=== PATIENT | female | born 1950 | race Caucasian/White ===

== ENCOUNTER 2023-06-19 10:54 | Outpatient (OUT) | payer MEDICARE, OTHER, SELFPAY ==
--- NOTE | 2023-06-19 11:05 | MM_ITS ---
Patient: VIRAL BIRD Exam Date: 06/19/2023 : 1950 Gender:F Ordering : DR Tonya Quiñones M.D. Admission #: [id number] Family : Order #: [id number] CLICK HERE TO VIEW EXAM RADIOLOGY REPORT PROCEDURE: MM TOMOSYNTHESIS SCREENING BI COMPARISON: MG MAMM SCREEN KULDIP W CAD, 08/20/2018. MG MAMM SCREEN KULDIP W CAD, 04/12/2020. INDICATIONS: Screening Calculator Name NCI Breast Cancer Risk Assessment Tool 5 Year Breast Cancer Risk 9.00% Lifetime Breast Cancer Risk 21.70% Personal Breast Cancer No Personal Ovarian Cancer No Treatments None Family Cancers Mother with breast cancer at age 78; Sister with breast cancer at age 55; Sister with thyroid cancer at age 62; Daughter with thyroid cancer at age 30. LOCATION: [facility] BREAST COMPOSITION: Scattered areas fibroglandular density. FINDINGS: DIAGNOSTIC CATEGORY 1--NEGATIVE. NO CHANGE FROM COMPARISON ASSESSMENT. Scattered benign-appearing nodules are present. Scattered benign-appearing calcifications are present. Scattered benign-appearing lymph nodes are present. RIGHT BREAST: No significant suspicious finding. LEFT BREAST: No significant suspicious finding. RECOMMENDATIONS: ROUTINE MAMMOGRAM AND CLINICAL EVALUATION IN 12 MONTHS. PLEASE NOTE: A NORMAL MAMMOGRAM DOES NOT EXCLUDE THE POSSIBILITY OF BREAST CANCER. A CLINICALLY SUSPICIOUS PALPABLE LUMP SHOULD BE BIOPSIED. Dictated by: Octavio Fink MD on 06/20/2023 at 08:43 Approved by: Octavio Fink MD on 06/20/2023 at 08:45
== END 2023-06-19 10:55 | disposition home or self-care (01) ==
LOC: MAMMO 10:59
PROVIDERS: PCP Family Medicine; Visit Provider Family Medicine
DX: Z12.31 Encounter for screening mammogram for malignant neoplasm of breast (principal); Z80.3 Family history of malignant neoplasm of breast; Z80.9 Family history of malignant neoplasm, unspecified
CPT/HCPCS: 77063; 77067

== ENCOUNTER 2023-08-21 13:45 | Outpatient (OUT) | payer MEDICARE, OTHER, SELFPAY ==
--- NOTE | 2023-08-21 14:36 | CA_ITS ---
Patient Name: VIRAL BIRD MR#: [id number] : 1950 Exam Date: 08/21/2023 Ordering Doctor: ARI SHELTON ECHOCARDIOGRAM REPORT PROCEDURE: CA ECHO DOPPLER COMPLETE INDICATIONS: Mitral valve stenosis, aortic valve stenosis, hypertension COMPARISON: None. DESCRIPTION: COMPLETE ECHOCARDIOGRAM Real-time transthoracic echocardiography with 2D, M-mode, spectral and color flow Doppler performed. QUALITY: Technical quality was good. 62 , 195#, BSA 1.89 m2 LEFT VENTRICLE: Normal chamber size. Proximal septal hypertrophy (sigmoid septum). Moderate concentric left ventricular hypertrophy. Normal systolic function. LV EF: Normal left ventricular ejection fraction, (>55%). DIASTOLIC: ATRIAL SEPTUM: Visually appears intact. LEFT ATRIUM: Moderate dilatation. RIGHT ATRIUM: Normal chamber size. RIGHT VENTRICLE: Normal chamber size. Normal right ventricular systolic function. TRICUSPID VALVE: Normal mobility and thickness. No stenosis with trivial regurgitation. No evidence of pulmonary hypertension. RVSP 30 mmHg MITRAL VALVE: Mildly thickened with normal mobility. Mild mitral valve stenosis. Mean gradient 3 mmHg at a heart rate of 73 bpm. Calculated mitral valve area by pressure half-time 2.5 cm?. Moderate mitral annular calcification. Trivial mitral regurgitation. AORTIC VALVE: Normal trileaflet appearance. Moderately calcified aortic valve. Moderately diminished mobility. Doppler velocity suggest moderate aortic valve stenosis. DVI 0.38, Mean 19.29 mmHg, BRANDON 1.4 cm?. Trivial aortic regurgitation. AORTIC ROOT: Normal diameter and appearance. PULMONIC VALVE: Normal thickness and mobility. No stenosis. Trivial regurgitation. PERICARDIUM: Trivial pericardial effusion. IVC: Collapses with inspirations. IVC is normal in size. PLEURA: CONCLUSION: 1. Moderate concentric left ventricular hypertrophy with normal systolic function. Estimated LVEF is 60 to 65%. 2. Normal right ventricular size and systolic function. 3. Moderate aortic valve stenosis. 4. Mild mitral valve stenosis. 5. Normal right-sided pressures. Adult Echocardiography Procedure Report Left Ventricle LVEDD (3.7 - 5.6 cm): 3.84 cm LVESD (2.2 - 4.0 cm): 2.43 cm LVIVS thickness (0.6 - 1.2 cm): 1.61 cm LVPW thickness (0.5 - 1.0 cm): 1.19 cm LVOT Max Gradient: 6.00 mm[Hg] LVOT Area (cm2): 1.22 m/s Peak Velocity (LVOT): 1.22 m/s Mean Velocity (LVOT): 0.81 m/s LVOT Diameter 2.15 cm Left Atrium LA Volume Index (2D A2C): 37.60 ml/m2 Left Atrium Systolic Dimension: 4.60 cm Mitral Valve MV E to A Ratio: 0.66, 0.64 Right Ventricle Aorta AO Root Diam: 2.69 cm Ascending Ao Diam: 2.63 cm Aortic Valve AoV Area (Peak Matt): 1.4 cm2 AoV Area (VTI): Peak Velocity(Antegrade Flow): 3.1 m/s Peak Gradient(Antegrade Flow): 28.76 mm[Hg], 29.75 mm[Hg] Mean Velocity(Antegrade Flow): 1.78 m/s, 1.76 m/s Mean Gradient(Antegrade Flow): 19.29 mm[Hg] Velocity Time Integral: 54.63 cm, 55.56 cm Tricuspid Valve Peak Velocity (Regurgitant Flow): 2.60 m/s Pulmonic Valve Peak Gradient: 6.25 mm[Hg], 5.30 mm[Hg] Right Atrium Right Atrium Systolic Pressure: 32.32 ml, 32.32 ml Dictated by: Tito Garcia M.D. on 08/21/2023 at 18:00 Approved by: Tito Garcia M.D. on 08/21/2023 at 18:04
== END 2023-08-21 13:46 | disposition home or self-care (01) ==
LOC: CARD 13:45
PROVIDERS: PCP Family Medicine; Visit Provider Nurse Practitioner
DX: I08.0 Rheumatic disorders of both mitral and aortic valves (principal)
CPT/HCPCS: 93306

== ENCOUNTER 2024-06-23 10:00 | Outpatient (OUT) | payer MEDICARE, OTHER, SELFPAY ==
--- OUTSIDE RECORDS SUMMARY | 2024-06-23 10:21 | XMS_ITS | CCD ---
Author Organization [facility] Care Team Providers Care Manager [employer] Name Role Phone PHYSICIAN, DEFAULT Unavailable Unavailable PHYSICIAN, DEFAULT Unavailable Unavailable SELF, REFERRED Unavailable Unavailable PHYSICIAN, DEFAULT Unavailable Unavailable PHYSICIAN, DEFAULT Unavailable Unavailable SELF, REFERRED Unavailable Unavailable ARI SHELTON Admitting Unavailable ARI SHELTON Consulting Unavailable ARI SHELTON Attending Unavailable KENNETH, DR TONYA Webb Primary Care Unavailable QUIÑONES, DR TONYA Webb Primary Care Unavailable QUIÑONES, DR TONYA Webb Consulting Unavailable QUIÑONES, DR TONYA Webb Attending Unavailable QUIÑONES, DR TONYA Webb Admitting Unavailable MOUKARBEL, DR ALEJANDRO Attending Unavailable MOUKARBEL, DR ALEJANDRO Admitting Unavailable MOUKARBEL, DR ALEJANDRO Consulting Unavailable QUIÑONES, DR TONYA Webb Primary Care Unavailable Tonya Quiñones Unavailable FLAVIA GARCIA Attending Unavailable MOUKARBEL, FLAVIA Attending Unavailable MOUKAFLAVIA GORDILLO Attending Unavailable Medications Current Medications Medication Drug Class(es) Dates Sig (Normalized) Sig (Original) amLODIPine 5 mg oral tablet (1 source) Dihydropyridine Calcium Channel Kim Start: 12-31-2021 take 5 mg by mouth once daily amLODIPine Besylate 5 MG amLODIPine Besylate( 5MG Oral daily ) Active -Hx Entry Oral daily for 0 Dec, Active furosemide 40 mg oral tablet (1 source) Loop Diuretic Start: 12-31-2021 take 1 tablet by mouth every twenty-four hours Furosemide 40 MG 1 tablet Orally Once a day for 0 days Dec, Active levothyroxine sodium 0.075 mg oral tablet (1 source) l-Thyroxine take 1 tablet by mouth once daily Levothyroxine Sodium 75 MCG TAKE 1 TABLET BY MOUTH EVERY DAY for 90 days Active lutein 20 mg oral capsule (1 source) Start: 12-31-2021 take 1 capsule by mouth every twenty-four hours Lutein 20 MG 1 capsule with a meal Orally Once a day for 0 days Dec, Active 24 hr metoprolol succinate 25 mg extended release oral tablet (1 source) beta-Adrenergic Kim Start: 12-31-2021 take 25 mg by mouth once daily Metoprolol Succinate ER 25 MG Metoprolol Succinate ER( 25MG Oral daily ) Active -Hx Entry Oral daily for 0 Dec, Active microencapsulated potassium chloride 20 meq extended release oral tablet (1 source) Start: 12-31-2021 take 1 tablet by mouth every twenty-four hours Klor-Con M20 20 MEQ 1 tablet with food Orally Once a day for 0 days Dec, Active rosuvastatin calcium 10 mg oral tablet (1 source) HMG-CoA Reductase Inhibitor Start: 12-31-2021 take 1 tablet by mouth every twenty-four hours Rosuvastatin Calcium 10 MG 1 tablet Orally Once a day for 0 days Dec, Active Problems Active Problems Problem Classification Problem Date Documented Da te Episodic/Chronic Cardiac dysrhythmias (2 sources) Paroxysmal atrial fibrillation; Translations: [Paroxysmal atrial fibrillation] Onset: 10-17-2023 Chronic Disorders of lipid metabolism (3 sources) Other hyperlipidemia; Translations: [Mixed hyperlipidemia] Onset: 08-29-2022 Chronic Essential hypertension (6 sources) Essential (primary) hypertension; Translations: [ESSENTIAL PRIMARY HYPERTENSION] Onset: 08-31-2022 Chronic Heart valve disorders (8 sources) Nonrheumatic aortic (valve) stenosis; Translations: [Nonrheumatic mitral (valve) stenosis] Onset: 08-28-2022 Chronic Osteoarthritis (1 source) Osteoarthritis; Translations: [Unspecified osteoarthritis, unspecified site] Chronic Other screening for suspected conditions (not mental disorders or infectious disease) (2 sources) Mammography abnormal; Translations: [Other abnormal and inconclusive findings on diagnostic imaging of breast] Episodic Thyroid disorders (7 sources) Hypothyroidism, unspecified; Translations: [Acquired hypothyroidism] Onset: 02-01-2022 Chronic Past or Other Problems Problem Classification Problem Date Documented Da te Episodic/Chronic Cardiac dysrhythmias (2 sources) Palpitations; Translations: [Palpitations] Onset: 08-26-2023 Episodic Results Test Name Value Interpretation Reference Range Facility Office Visiton 05-07-2024 Follow-up visit [id number] Viral Lopez 1950 F Date Provider Department Center 05/07/2024 FLAVIA GAMBOA BH [facility] No family history on file Level of Service:99049 MT OFFICE/OUTPATIENT ESTABLISHED MOD MDM 30 MIN [facility] Office Visiton 10-17-2023 Follow-up visit [id number] Viral Lopez 1950 F Date Provider Department Center 10/17/2023 FLAVIA GAMBOA LILIA[facility] No family history on file Level of Service:92884 MT OFFICE/OUTPATIENT ESTABLISHED MOD MDM 30 MIN [facility] 36on 08-27-[address] Garcia after reviewing patient's serious report on event monitor (scanned into social media job titles) she has atrial fibrillation. Please have her start Eliquis 5 mg twice daily. Please have her come in for an ECG. She can stop aspirin after starting Eliquis. Follow-up in 1 to 2 months. Please have her increase metoprolol to 50 mg daily and stop amlodipine. I spoke with patient and made her aware. She will stop in tomorrow for ECG and Eliquis samples. Normal [facility] Office Visiton 08-26-2023 Follow-up visit [id number] Hussein Lopezyasir Helms 1950 F Date Provider Department Center 08/26/2023 FLAVIA GAMBOA ARUN [facility] No family history on file Level of Service:30580 MT OFFICE/OUTPATIENT ESTABLISHED MOD MDM 30-39 MIN [facility] CBC AUTO DIFFon 10-29-2022 BASO # 0.1 103/ul Normal 0.0-0.1 [facility] Comment on above: Performed By: #### C BC #### [facility] [address] [address] [address] Alexa Burgos Basophils/100 WBC (Bld) 0.6 % Normal 0.2-2.0 [facility] Comment on above: Performed By: #### C BC #### [facility] [address] [address] [address] Alexa Burgos EO # 0.2 103/ul Normal 0.0-0.7 [facility] Comment on above: Performed By: #### C BC #### [facility] [address] [place] [address] Dr. Alexa Burgos Eosinophils/100 WBC (Bld) 2.1 % Normal 0.9-7.0 [facility] Comment on above: Performed By: #### C BC #### [facility] [address] [place] [address] Dr. Alexa Burgos Erythrocyte distribution width (RBC) [Ratio] 12.5 % Normal 11.0-15.0 [facility] Comment on above: Performed By: #### C BC #### [facility] [address] [place] [address] Dr. Alexa Burgos Hematocrit (Bld) [Volume fraction] 43.6 % Normal 36.0-48.0 [facility] Comment on above: Performed By: #### C BC #### [facility] [address] [place] [address] Dr. Alexa Burgos Hemoglobin (Bld) [Mass/Vol] 14.9 g/dL Normal 12.0-16.0 [facility] Comment on above: Performed By: #### C BC #### [facility] [address] [place] [address] Dr. Alexa Burgos IG # 0.02 10e3/ul Normal 0.00-0.03 [facility] Comment on above: Performed By: #### C BC #### [facility] [address] [place] [address] Dr. Alexa Burgos IG % 0.2 % Normal 0.0-0.5 [facility] Comment on above: Performed By: #### C BC #### [facility] [address] [place] [address] Dr. Alexa Burgos LYMPH # 3.2 103/ul Normal 1.2-3.8 [facility] Comment on above: Performed By: #### C BC #### [facility] [address] [place] [address] Dr. Alexa Burgos Lymphocytes/100 WBC (Bld) 36.3 % Normal 20.5-60.0 [facility] Comment on above: Performed By: #### C BC #### [facility] [address] [place] [address] Dr. Alexa Burgos MANUAL DIFF REQ NO Normal [facility] Comment on above: Performed By: #### C BC #### [facility] [address] [place] [address] Dr. Alexa Burgos MCH (RBC) [Entitic mass] 31.5 pg Normal 26.7-34.0 [facility] Comment on above: Performed By: #### C BC #### [facility] [address] [place] [address] Dr. Alexa Burgos MCHC (RBC) [Mass/Vol] 34.2 g/dL Normal 29.9-35.2 [facility] Comment on above: Performed By: #### C BC #### [facility] [address] [place] [address] Dr. Alexa Burgos MCV (RBC) [Entitic vol] 92.2 fL Normal 81.0-99.0 [facility] Comment on above: Performed By: #### C BC #### [facility] [address] [place] [address] Dr. Alexa Burgos MONO # 0.7 103/ul Normal 0.3-0.8 [facility] Comment on above: Performed By: #### C BC #### [facility] [address] [place] [address] Dr. Alexa Burgos Monocytes/100 WBC (Bld) 8.2 % Normal 1.7-12.0 [facility] Comment on above: Performed By: #### C BC #### [facility] [address] [place] [address] Dr. Alexa Burgos NEUT # 4.6 103/ul Normal 1.4-6.5 [facility] Comment on above: Performed By: #### C BC #### [facility] [address] [place] [address] Dr. Alexa Burgos Neutrophils/100 WBC (Bld) 52.6 % Normal 43.0-75.0 [facility] Comment on above: Performed By: #### C BC #### [facility] [address] [place] [address] Dr. Alexa Burgos Platelet mean volume (Bld) [Entitic vol] 8.9 fL Critically low 9.5-13.5 [facility] Comment on above: Performed By: #### C BC #### [facility] [address] [place] [address] Dr. Alexa Burgos PLT 393 103/ul Normal 150-450 [facility] Comment on above: Performed By: #### C BC #### [facility] [address] [address] [address] Alexa Burgos RBC 4.73 106/ul Normal 4.20-5.40 [facility] Comment on above: Performed By: #### C BC #### [facility] [address] [place] [address] Dr. Alexa Burgos WBC 8.8 103/ul Normal 4.0-11.0 [facility] Comment on above: Performed By: #### C BC #### [facility] [address] [place] [address] Dr. Alexa Burgos LIPID PROFILEon 10-29-2022 CHOL-HDL RATIO NORM SEE BELOW Normal [facility] Comment on above: Result Comment: 3.3 - 4.4 LOW RISK 4.4 - 7.1 AVERAGE RISK 7.1 - 11.0 MODERATE RISK >11.0 HIGH RISK Performed By: #### L IPID, TSH, CMP #### [facility] [address] [place] [address] Dr. Alexa Burgos Cholesterol [Mass/Vol] 128 mg/dL Normal <=200 [facility] Comment on above: Performed By: #### L IPID, TSH, CMP #### [facility] [address] [place] [address] Dr. Alexa Burgos Cholesterol in HDL [Mass/Vol] 48 mg/dL Normal 40-60 [facility] Comment on above: Performed By: #### L IPID, TSH, CMP #### [facility] [address] [place] [address] Dr. Alexa Burgos Cholesterol in LDL [Mass/Vol] 60.6 mg/dL Normal [facility] Comment on above: Performed By: #### L IPID, TSH, CMP #### [facility] [address] [address] [address] Alexa Burgos Cholesterol.total/ Cholesterol in HDL [Mass ratio] 2.7 {ratio} Normal [facility] Comment on above: Performed By: #### L IPID, TSH, CMP #### [facility] [address] [address] [address] Alexa Burgos HDL NORMAL > or = 60 mg/dl - LO W CARDIOVASCULAR RISK <40 mg/dl - HIGH CARDIOVASCULAR RISK Normal [facility] Comment on above: Performed By: #### L IPID, TSH, CMP #### [facility] [address] [address] [address] Alexa Burgos LDL CALC NORMAL SEE BELOW Normal [facility] Comment on above: Result Comment: <100 mg/dl OPTIMAL 100 - 129 mg/dl NEAR OR ABOVE OPTIMAL 130 - 159 mg/dl BORDERLINE HIGH 160 - 189 mg/dl HIGH >190 mg/dl VERY HIGH Performed By: #### L IPID, TSH, CMP #### [facility] [address] [address] [address] Alexa Burgos Triglyceride [Mass/Vol] 97 mg/dL Normal <=150 [facility] Comment on above: Performed By: #### L IPID, TSH, CMP #### [facility] [address] [address] [address] Alexa Burgos VLDL CALC 19.4 mg/dL Normal [facility] Comment on above: Performed By: #### L IPID, TSH, CMP #### [facility] [address] [address] [address] Alexa Burgos PROF 14(COMP METB)on 023 Albumin [Mass/Vol] 3.8 g/dL Normal 3.4-5.0 [facility] Comment on above: Performed By: #### L IPID, TSH, CMP #### [facility] [address] [address] [address] Alexa Burgos Albumin/Globulin [Mass ratio] 0.9 {ratio} Normal [facility] Comment on above: Performed By: #### L IPID, TSH, CMP #### [facility] [address] [address] [address] Alexa Burgos ALP [Catalytic activity/Vol] 90 U/L Normal 46-116 [facility] Comment on above: Performed By: #### L IPID, TSH, CMP #### [facility] [address] [address] [address] Alexa Burgos ALT [Catalytic activity/Vol] 31 U/L Normal 14-59 [facility] Comment on above: Performed By: #### L IPID, TSH, CMP #### [facility] [address] [address] [address] Alexa Burgos Anion gap [Moles/Vol] 11.3 mmol/L Normal [facility] Comment on above: Performed By: #### L IPID, TSH, CMP #### [facility] [address] [place] [address] Dr. Alexa Burgos AST [Catalytic activity/Vol] 21 U/L Normal 15-37 [facility] Comment on above: Performed By: #### L IPID, TSH, CMP #### [facility] [address] [address] [address] Alexa Burgos Bilirubin [Mass/Vol] 0.5 mg/dL Normal 0.2-1.0 [facility] Comment on above: Performed By: #### L IPID, TSH, CMP #### [facility] [address] [address] [address] Alexa Burgos Calcium [Mass/Vol] 10.3 mg/dL Critically high 8.5-10.1 [facility] Comment on above: Performed By: #### L IPID, TSH, CMP #### [facility] [address] [address] [address] Alexa Burgos Chloride [Moles/Vol] 102 mmol/L Normal 98-107 [facility] Comment on above: Performed By: #### L IPID, TSH, CMP #### [facility] [address] [address] [address] Alexa Burgos CO2 [Moles/Vol] 32.6 mmol/L Critically high 21.0-32.0 [facility] Comment on above: Performed By: #### L IPID, TSH, CMP #### [facility] [address] [address] [address] Alexa Burgos Creatinine [Mass/Vol] 0.69 mg/dL Normal 0.55-1.02 [facility] Comment on above: Performed By: #### L IPID, TSH, CMP #### [facility] [address] [address] [address] Alexa Burgos EGFR-AF TOGOLESE >60 Normal >=60 [facility] Comment on above: Performed By: #### L IPID, TSH, CMP #### [facility] [address] [place] [address] Dr. Alexa Burgos EGFR-NON AF TOGOLESE >60 Normal >=60 [facility] Comment on above: Performed By: #### L IPID, TSH, CMP #### [facility] [address] [place] [address] Dr. Alexa Burgos Globulin (S) [Mass/Vol] 4.3 g/dL Normal [facility] Comment on above: Performed By: #### L IPID, TSH, CMP #### [facility] [address] [place] [address] Dr. Alexa Burgos Glucose [Mass/Vol] 119 mg/dL Critically high 74-106 [facility] Comment on above: Performed By: #### L IPID, TSH, CMP #### [facility] [address] [place] [address] Dr. Alexa Burgos Potassium [Moles/Vol] 3.9 mmol/L Normal 3.5-5.1 [facility] Comment on above: Performed By: #### L IPID, TSH, CMP #### [facility] [address] [place] [address] Dr. Alexa Burgos Protein [Mass/Vol] 8.1 g/dL Normal 6.4-8.2 [facility] Comment on above: Performed By: #### L IPID, TSH, CMP #### [facility] [address] [place] [address] Dr. Alexa Burgos Sodium [Moles/Vol] 142 mmol/L Normal 136-145 [facility] Comment on above: Performed By: #### L IPID, TSH, CMP #### [facility] [address] [address] [address] Alexa Burgos Urea nitrogen [Mass/Vol] 15.0 mg/dL Normal 7.0-18.0 [facility] Comment on above: Performed By: #### L IPID, TSH, CMP #### [facility] [address] [address] [address] Alexa Burgos Urea nitrogen/Creatinin e [Mass ratio] 21.7 mg/mg Normal [facility] Comment on above: Performed By: #### L IPID, TSH, CMP #### [facility] [address] [place] [address] Dr. Alexa Burgos TSHon 10-29-2022 TSH 3.855 uIU/mL Critically high 0.358-3.740 [facility] Comment on above: Performed By: #### L IPID, TSH, CMP #### [facility] [address] [place] [address] Dr. Alexa Burgos ECHOCARDIO M/2D COMPLETEon 1 10-29-2021 ECHOCARDIO M/2D COMPLETE Patient: VIRAL LOPEZ Exam Date: 08/28/2022 : 1950 Gender:F Ordering : DR FLAVIA GARCIA M.D. Admission #: [id number] Family : DR TONYA QUIÑONES M.D. Order #: [id number] CLICK HERE TO VIEW EXAM ECHOCARDIOGRAM REPORT PROCEDURE: CARDIO PULMONARY ECHOCARDIO M/2D COMP INDICATIONS: Aortic valve stenosis COMPARISON: None. DESCRIPTION: COMPLETE ECHOCARDIOGRAM Real-time transthoracic echocardiography with 2D, M-mode, spectral and color flow Doppler performed. QUALITY: Technical quality was adequate. 62 213# 124/68 HR 74 LEFT VENTRICLE: Normal chamber size. Mild concentric left ventricular hypertrophy. LV EF: Global left ventricular systolic function is normal. Visual estimation of left ventricular ejection fraction is 65 %. No regional wall motion abnormality. DIASTOLIC: Grade II diastolic dysfunction. ATRIAL SEPTUM: Inadequately seen. LEFT ATRIUM: Left atrium appears mildly to moderately enlarged. RIGHT ATRIUM: Moderate dilatation. RIGHT VENTRICLE: Normal chamber size. Normal right ventricular systolic function. TRICUSPID VALVE: Normal mobility and thickness. No stenosis with mild regurgitation. Doppler studies reveal mildly (35-45) elevated right sided pressures. RVSP 42 mmHg MITRAL VALVE: No evidence of mitral valve stenosis. Severe mitral annular calcification. Trivial mitral regurgitation. Mitral valve opens well. AORTIC VALVE: Normal trileaflet appearance. Moderately calcified aortic valve. Doppler velocity suggest moderate aortic valve stenosis. BRANDON 1.0 cm2 DVI 0.3. No significant change. Mild aortic regurgitation. AORTIC ROOT: Normal diameter and appearance. PULMONIC VALVE: Normal thickness and mobility. No stenosis. Trivial regurgitation. PERICARDIUM: No evidence of pericardial effusion. IVC: Collapses with inspirations. IVC is dilated. CONCLUSION: Global left ventricular systolic function is normal; visually estimated ejection fraction is 65%. No significant wall motion abnormalities. Mild left ventricular hypertrophy. Grade 2, moderate diastolic dysfunction. Biatrial enlargement. The right ventricle is normal in size and systolic function. Mildly elevated right-sided pressures. Mild tricuspid regurgitation. Moderate aortic valve stenosis. Adult Echocardiography Procedure Report Left Ventricle LVEDD (3.7 - 5.6 cm): 4.30 cm LVESD (2.2 - 4.0 cm): 2.96 cm LVPW thickness (0.5 - 1.0 cm): 0.99 cm LVOT Max Gradient: 5.73 mm[Hg], 5.73 mm[Hg] Peak Velocity (LVOT): 1.20 m/s, 1.20 m/s Mean Velocity (LVOT): 0.84 m/s LVOT Diameter 1.96 cm Left Ventricular Ejection Fraction: 59.27 %, 59.27 % Left Atrium LA Volume Index (2D A2C): 89.98 ml, 89.98 ml Left Atrium Systolic Dimension: 3.97 cm Mitral Valve MV E to A Ratio: 1.04 Mitral Valve A-Wave Peak Velocity: 1.35 m/s Mitral Valve E-Wave Peak Velocity: 1.40 m/s Right Ventricle RV Internal Diastolic Dimension: 3.37 cm Aorta AO Root Diam: 3.06 cm Ascending Ao Diam: 3.03 cm Aortic Valve AoV Area (Peak Matt): 1.02 cm2, 1.10 cm2, 1.02 cm2, 1.10 cm2, 1.02 cm2, 1.02 cm2, 1.02 cm2, 1.02 cm2 AoV Area (VTI): 1.02 cm2, 1.14 cm2 Peak Velocity(Antegrade Flow): 3.28 m/s, 3.48 m/s, 3.54 m/s, 3.52 m/s, 3.54 m/s Peak Gradient(Antegrade Flow): 43.16 mm[Hg], 48.57 mm[Hg], 50.26 mm[Hg], 50.26 mm[Hg], 49.69 mm[Hg] Mean Velocity(Antegrade Flow): 2.16 m/s, 2.30 m/s, 2.49 m/s, 2.38 m/s Mean Gradient(Antegrade Flow): 22.02 mm[Hg], 25.01 mm[Hg], 28.13 mm[Hg], 26.06 mm[Hg] Velocity Time Integral: 78.26 cm, 78.96 cm, 87.54 cm, 87.14 cm Tricuspid Valve Peak Velocity (Regurgitant Flow): 3.00 m/s Peak Velocity: 0.41 m/s Pulmonic Valve Peak Velocity: 1.30 m/s Peak Gradient: 6.77 mm[Hg] Right Atrium Dictated by: Leonardo Edwards M.D. on 08/29/2022 at 11:14 Approved by: Leonardo Edwards M.D. on 08/29/2022 at 11:17 Normal [facility] FREE T4on 02-01-2022 Free T4 [Mass/Vol] 1.00 ng/dL Normal 0.76-1.46 [facility] Comment on above: Performed By: #### F T4 #### [facility] [address] [address] [address] Alexa Burgos TSHon 02-01-2022 TSH 2.470 uIU/mL Normal 0.358-3.740 [facility] Comment on above: Performed By: #### T SH #### [facility] [address] [address] [address] Alexa Burgos TSH RANGE SEE BELOW Normal [facility] Comment on above: Result Comment: <0.3 4 UIU/ml HYPERTHYROID 0.34-5.60 UIU/ml EUTHYROID >5.60 UIU/ml HYPOTHYROID Performed By: #### T #### [facility] [address] [place] [address] Dr. Alexa Burgos Vital Signs Date Time Vital Sign Value Performing Clinician Facility 05-27-2023 11:30-0400 Body height 157.48 cm Tonya Quiñones Other [facility] Other 05-27-2023 11:30-0400 Body mass index (BMI) [Ratio] 38.48 kg/m2 Tonya Quiñones Other [facility] Other 05-27-2023 11:30-0400 Body weight 95.44 kg Tonya Quiñones Other [facility] Other 05-27-2023 11:30-0400 Diastolic blood pressure 68 mm[Hg] Tonya uQiñones Other [facility] Other 05-27-2023 11:30-0400 Respiratory rate 12 /min Tonya Quiñones Other [facility] Other 05-27-2023 11:30-0400 Systolic blood pressure 112 mm[Hg] Tonya Quiñones Other [facility] Other Encounters Encounter Date Encounter Type Care Provider Facility Start: 05-07-2024 End: 05-07-2024 ambulatory [facility] Start: 10-17-2023 End: 10-17-2023 ambulatory [facility] Start: 08-26-2023 End: 08-26-2023 ambulatory [facility] Start: 05-27-2023 End: 05-27-2023 ambulatory Tonya Quiñones Other [facility] Other Start: 05-27-2023 Patient encounter procedure Tonya Quiñones [facility] Start: 10-29-2022 End: 10-30-2022 ambulatory ARI SHELTON Facility:[facility] Start: 08-28-2022 End: 08-29-[address] FLAVIA GARCIA Facility[facility] Start: 02-01-2022 End: 02-02-[address] TONYA QUIÑONES Facility:[facility] Start: 08-13-2018 End: 08-14-2018 Patient encounter procedure DEFAULT PHYSICIAN Facility:[facility] Start: 02-17-2018 End: 02-18-2018 Patient encounter procedure DEFAULT PHYSICIAN Facility:[facility] Immunizations Immunization Date Immunization Notes Care Provider Fa cility 06-10-2022 COVID-19 Pfizer (bivalent) Tonya Quiñones Other [facility] Other 06-10-2022 influenza, high dose seasonal, preservative-free Tonya Quiñones Other [facility] Other 07-02-2021 COVID-19 Vaccine Pfi zer - Documentation Purposes Only Tonya Quiñones Other [facility] Other 07-02-2021 influenza virus vaccine, split virus (incl. purified surface antigen) Tonya Quiñones Other [facility] Other 12-05-2020 COVID-19 Vaccine Pfi zer - Documentation Purposes Only Tonya Quiñones Other [facility] Other 11-13-2020 COVID-19 Vaccine Pfi zer - Documentation Purposes Only [facility]a Qu[facility]ones [facility] [facility] Other 07-09-2018 pneumococcal conjuga te vaccine, 13 valent Tonya Quiñones Other [facility] Other 06-18-2018 influenza virus vaccine, split virus (incl. purified surface antigen) Tonya Quiñones Other [facility] Other Payers Date Payer Category Payer Medicare [id number] 1958 Unknown [id number] 1950 Unknown [id number] [id number] 1950 Unknown [id number] 2.16.8 [id number] 1950 Unknown [id number] 2.16.84 [id number] 1950 Unknown [id number] 2.16.84 [id number] 1950 Unknown [id number] [id number] [id number] Unknown Social History Date Type Detail Facility Sex Assigned At [facility] Other Progress note 05-07-2024 Note Date & Type Note Facility 05-07-2024 Note DC Cardiology - [facility] Yoselin Lopez is a 74 y.o. year old female patient being seen for six month follow up. Pt has PAF, hypertension, Hyperlipidemia, nonrheumatic aortic valve stenosis. Asprin was stopped at last appointment to reduce risk of bleeding. Pt says the palpatations only happen every so often. Patient Active Problem List Diagnosis Mitral valve stenosis and aortic valve stenosis Hyperlipidemia Essential hypertension Hypothyroidism Age-related nuclear cataract of both eyes Glaucoma suspect of both eyes Pseudophakia Atrial arrhythmia No family history on file. KEVIN Ramirez is seen in follow up on aortic stenosis. She is a 74 yo woman with prior history of hypertension, hyperlipidemia and aortic stenosis. Her echocardiogram has shown progression of the gradients across the aortic valve from a mean of about 20 to a mean of about 30 mmHg on the echo of 07/2018. Echo 06/2019 showed stable moderate aortic stenosis. Subsequent echocardiograms have shown stable moderate aortic valve stenosis, last echocardiogram August 2023. After visit of 08/26/2023 and due to palpitations I requested an event monitor that showed episodes of atrial fibrillation. I started her on Eliquis for anticoagulation given elevated [id number] score. I also increased metoprolol dosage and stopped amlodipine. I stopped and aspirin due to being on Eliquis. today she reports that with increasing the metoprolol to 75 mg daily she has felt much better with less frequent palpitations and no more cough and no more fatigue. She has no chest pain. No leg swelling. She is able to do physical activity with no significant limitations. She has no bleeding with Eliquis. Review of Systems Cardiovascular: Positive for palpitations (less often). Musculoskeletal: Positive for arthritis and joint pain. All other systems reviewed and are negative. Objective Visit Vitals BP 118/63 (BP Location: Left arm, Patient Position: Sitting) Pulse 64 Ht 1.575 m (5' 2 ) Wt 89.8 kg (198 lb) SpO2 91% BMI 36.21 kg/m??? BSA 1.98 m??? Physical Exam Constitutional: Appearance: She is well-developed. She is obese. She is not ill-appearing. HENT: Head: Normocephalic and atraumatic. Nose: Nose normal. Eyes: General: No scleral icterus. Pupils: Pupils are equal, round, and reactive to light. Neck: Thyroid: No thyromegaly. Vascular: No JVD. Cardiovascular: Rate and Rhythm: Normal rate and regular rhythm. Pulses: Radial pulses are 2+ on the right side and 2+ on the left side. Heart sounds: Murmur heard. Systolic (RUSB) murmur is present with a grade of 3/6. No friction rub. No gallop. Pulmonary: Effort: Pulmonary effort is normal. No respiratory distress. Breath sounds: Normal breath sounds. No wheezing or rales. Chest: Chest wall: No tenderness. Abdominal: General: Bowel sounds are normal. There is no distension. Palpations: Abdomen is soft. Tenderness: There is no abdominal tenderness. Musculoskeletal: General: No swelling. Cervical back: Neck supple. Skin: General: Skin is warm and dry. Neurological: General: No focal deficit present. Mental Status: She is alert and oriented to person, place, and time. Psychiatric: Mood and Affect: Mood normal. Behavior: Behavior is cooperative. Judgment: Judgment normal. Allergies No Known Allergies Medications Current Outpatient Medications: apixaban (Eliquis) 5 mg tablet, Take 1 tablet (5 mg) by mouth in the morning and at bedtime., Disp: 60 tablet, Rfl: 11 furosemide (Lasix) 40 mg tablet, TAKE 1 TABLET BY MOUTH EVERY DAY, Disp: 90 tablet, Rfl: 3 levothyroxine (Synthroid, Levoxyl) 50 mcg tablet, Take 75 mcg by mouth in the morning., Disp: , Rfl: metoprolol succinate XL (Toprol-XL) 25 mg 24 hr tablet, Take 1 tablet (25 mg) by mouth once daily as directed. In addition to 50mg tablets daily for a total dose of 75mg daily, Disp: 90 tablet, Rfl: 3 metoprolol succinate XL (Toprol-XL) 50 mg 24 hr tablet, Take 1 tablet (50 mg) by mouth once daily as directed. Do not crush or chew., Disp: 90 tablet, Rfl: 3 potassium chloride CR (Klor-Con M20) 20 mEq ER tablet, Take 1 tablet (20 mEq) by mouth in the morning., Disp: 90 tablet, Rfl: 3 rosuvastatin (Crestor) 10 mg tablet, TAKE 1 TABLET BY MOUTH EVERY DAY, Disp: 90 tablet, Rfl: 3 Recent Labs No visits with results within 6 Month(s) from this visit. Latest known visit with results is: [facility] Encounter on 02/24/2017 Component Date Value Ventricular Rate 02/24/2017 65 Atrial Rate 02/24/2017 65 MT Interval 02/24/2017 136 QRS DURATION 02/24/2017 84 QT Interval 02/24/2017 396 QTC CALCULATION(BEZET) 02/24/2017 411 P [place] 02/24/2017 31 R-[place]own[place] 02/24/2017 60 T Wave [place] 02/24/2017 61 Diagnosis 02/24/2017 Value:Normal sinus rhythm Normal ECG No previous ECGs available Confirmed by Na COLLIER., L.S. (2) on 02/24/2017 5:06:47 PM (more content not included)... [facility] Progress note 10-17-2023 Note Date & Type Note Facility 10-17-2023 Note DC Cardiology - [facility] Subjective Viral Lopez is a 73 y.o. year old female patient being seen for 2 mo follow up echo and event monitor. She was started on Eliquis. Metoprolol was increased to 75mg daily and amlodipine was stopped. Says she feels much better and palpitations are much less. Cough has resolved. Says she has more energy now. Denies chest pain, SOB, lightheadedness/syncope, and bleeding on Eliquis. Patient Active Problem List Diagnosis Mitral valve stenosis and aortic valve stenosis Hyperlipidemia Essential hypertension Hypothyroidism Age-related nuclear cataract of both eyes Glaucoma suspect of both eyes Pseudophakia No family history on file. KEVIN Ramirez is seen in follow up on aortic stenosis. She is a 73 yo woman with prior history of hypertension, hyperlipidemia and aortic stenosis. She is on aspirin, furosemide 40 mg daily, KCL, amlodipine 5 mg daily and metoprolol succinate 25 mg daily and rosuvastatin. Her echocardiogram has shown progression of the gradients across the aortic valve from a mean of about 20 to a mean of about 30 mmHg on the echo of 07/2018. Echo 06/2019 showed stable moderate aortic stenosis. Subsequent echocardiograms have shown stable moderate aortic valve stenosis, last echocardiogram August 2023. After last visit of 08/26/2023 and due to palpitations I requested an event monitor that showed episodes of atrial fibrillation. I started her on Eliquis for anticoagulation given elevated [id number] score. I also increased metoprolol dosage and stopped amlodipine. today she reports that with increasing the metoprolol to 75 mg daily she has felt much better with less frequent palpitations and no more cough and no more fatigue. She has no chest pain. No leg swelling. She is able to do physical activity with no significant limitations. She has no bleeding with Eliquis. Review of Systems Cardiovascular: Positive for palpitations (less often). Musculoskeletal: Positive for arthritis and joint pain. All other systems reviewed and are negative. Objective Visit Vitals BP 116/72 (BP Location: Left arm, Patient Position: Sitting) Pulse 75 Ht 1.575 m (5' 2 ) Wt 89.4 kg (197 lb) SpO2 98% BMI 36.03 kg/m??? BSA 1.98 m??? Physical Exam Constitutional: Appearance: She is well-developed. She is obese. She is not ill-appearing. HENT: Head: Normocephalic and atraumatic. Nose: Nose normal. Eyes: General: No scleral icterus. Pupils: Pupils are equal, round, and reactive to light. Neck: Thyroid: No thyromegaly. Vascular: No JVD. Cardiovascular: Rate and Rhythm: Normal rate and regular rhythm. Pulses: Radial pulses are 2+ on the right side and 2+ on the left side. Heart sounds: Murmur heard. Systolic (RUSB) murmur is present with a grade of 3/6. No friction rub. No gallop. Pulmonary: Effort: Pulmonary effort is normal. No respiratory distress. Breath sounds: Normal breath sounds. No wheezing or rales. Chest: Chest wall: No tenderness. Abdominal: General: Bowel sounds are normal. There is no distension. Palpations: Abdomen is soft. Tenderness: There is no abdominal tenderness. Musculoskeletal: General: No swelling. Cervical back: Neck supple. Skin: General: Skin is warm and dry. Neurological: General: No focal deficit present. Mental Status: She is alert and oriented to person, place, and time. Psychiatric: Mood and Affect: Mood normal. Behavior: Behavior is cooperative. Judgment: Judgment normal. Allergies No Known Allergies Medications Current Outpatient Medications: apixaban (Eliquis) 5 mg tablet, Take 1 tablet (5 mg) by mouth in the morning and at bedtime., Disp: 60 tablet, Rfl: 11 aspirin 81 mg EC tablet, Take 81 mg by mouth in the morning., Disp: , Rfl: furosemide (Lasix) 40 mg tablet, TAKE 1 TABLET BY MOUTH EVERY DAY, Disp: 90 tablet, Rfl: 3 levothyroxine (Synthroid, Levoxyl) 50 mcg tablet, Take 75 mcg by mouth in the morning., Disp: , Rfl: metoprolol succinate XL (Toprol-XL) 25 mg 24 hr tablet, Take 1 tablet (25 mg) by mouth once daily as directed. In addition to 50mg tablets daily for a total dose of 75mg daily, Disp: 90 tablet, Rfl: 3 metoprolol succinate XL (Toprol-XL) 50 mg 24 hr tablet, Take 1 tablet (50 mg) by mouth once daily as directed. Do not crush or chew., Disp: 90 tablet, Rfl: 3 potassium chloride CR (Klor-Con M20) 20 mEq ER tablet, Take 1 tablet (20 mEq) by mouth in the morning., Disp: 90 tablet, Rfl: 3 rosuvastatin (Crestor) 10 mg tablet, TAKE 1 TABLET BY MOUTH EVERY DAY, Disp: 90 tablet, Rfl: 3 Recent Labs No visits with results within 6 Month(s) from this visit. Latest known visit with results is: Legacy Encounter on 02/24/2017 Component Date Value Ventricular Rate 02/24/2017 65 Atrial Rate 02/24/2017 65 MT Interval 02/24/2017 136 QRS DURATION 02/24/2017 84 QT Interval 02/24/2017 396 QTC CALCULATION(BEZET) 02/24 (more content not included)... [facility] Progress note 08-26-2023 Note Date & Type Note Facility 08-26-2023 Note DC Cardiology - [facility] Yoselin Lopez is a 73 y.o. year old female patient being seen for 1 year follow up hypertension and valve disorder. She had echo last week. Has had 2 episodes of flip flopping heart palpitations recently that have woken her from sleep. C/o cough. She has quit her walking at the [employer] due to cough. She only gets SOB with coughing spells. Today she made lots of cookies and was able to go up and down her stairs several times without SOB. Denies chest pain. Patient Active Problem List Diagnosis Mitral valve stenosis and aortic valve stenosis Hyperlipidemia Essential hypertension Hypothyroidism Age-related nuclear cataract of both eyes Glaucoma suspect of both eyes Pseudophakia No family history on file. KEVIN Ramirez is seen in follow up on aortic stenosis. She is a 73 yo woman with prior history of hypertension, hyperlipidemia and aortic stenosis. She is on aspirin, furosemide 40 mg daily, KCL, amlodipine 5 mg daily and metoprolol succinate 25 mg daily and rosuvastatin. Her echocardiogram has shown progression of the gradients across the aortic valve from a mean of about 20 to a mean of about 30 mmHg on the echo of 07/2018. Echo 06/2019 showed stable moderate aortic stenosis. Subsequent echocardiograms have shown stable moderate aortic valve stenosis, last echocardiogram August 2023. She denies chest pain, she has shortness of breath that is chronic and stable, and no palpitations. She is not limited in terms of physical activity, she claims to be active with no symptoms. There is no lower extremity swelling, and no syncope. There is no claudication by history. Recently she has been having episodes of palpitations that happen on and off with or without exertion. Review of Systems Cardiovascular: Positive for palpitations. Respiratory: Positive for cough and shortness of breath (with cough spells). Musculoskeletal: Positive for arthritis and joint pain. All other systems reviewed and are negative. Objective Visit Vitals BP 118/64 (BP Location: Left arm, Patient Position: Sitting) Pulse 77 Ht 1.575 m (5' 2 ) Wt 90.7 kg (200 lb) SpO2 97% BMI 36.58 kg/m??? BSA 1.99 m??? Physical Exam Constitutional: Appearance: She is well-developed. She is obese. She is not ill-appearing. HENT: Head: Normocephalic and atraumatic. Nose: Nose normal. Eyes: General: No scleral icterus. Pupils: Pupils are equal, round, and reactive to light. Neck: Thyroid: No thyromegaly. Vascular: No JVD. Cardiovascular: Rate and Rhythm: Normal rate and regular rhythm. Pulses: Radial pulses are 2+ on the right side and 2+ on the left side. Heart sounds: Murmur heard. Systolic (RUSB) murmur is present with a grade of 3/6. No friction rub. No gallop. Pulmonary: Effort: Pulmonary effort is normal. No respiratory distress. Breath sounds: Normal breath sounds. No wheezing or rales. Chest: Chest wall: No tenderness. Abdominal: General: Bowel sounds are normal. There is no distension. Palpations: Abdomen is soft. Tenderness: There is no abdominal tenderness. Musculoskeletal: General: No swelling. Cervical back: Neck supple. Skin: General: Skin is warm and dry. Neurological: General: No focal deficit present. Mental Status: She is alert and oriented to person, place, and time. Psychiatric: Mood and Affect: Mood normal. Behavior: Behavior is cooperative. Judgment: Judgment normal. Allergies No Known Allergies Medications Current Outpatient Medications: amLODIPine (Norvasc) 5 mg tablet, TAKE 1 TABLET BY MOUTH EVERY DAY, Disp: 90 tablet, Rfl: 3 aspirin 81 mg EC tablet, Take 81 mg by mouth in the morning., Disp: , Rfl: furosemide (Lasix) 40 mg tablet, TAKE 1 TABLET BY MOUTH EVERY DAY, Disp: 90 tablet, Rfl: 3 levothyroxine (Synthroid, Levoxyl) 50 mcg tablet, Take 75 mcg by mouth in the morning., Disp: , Rfl: potassium chloride CR (Klor-Con M20) 20 mEq ER tablet, Take 1 tablet (20 mEq) by mouth in the morning., Disp: 90 tablet, Rfl: 3 rosuvastatin (Crestor) 10 mg tablet, TAKE 1 TABLET BY MOUTH EVERY DAY, Disp: 90 tablet, Rfl: 3 metoprolol succinate XL (Toprol-XL) 25 mg 24 hr tablet, Take 1 tablet (25 mg) by mouth once daily as directed., Disp: 90 tablet, Rfl: 3 Recent Labs No visits with results within 6 Month(s) from this visit. Latest known visit with results is: Legacy Encounter on 02/24/2017 Component Date Value Ventricular Rate 02/24/2017 65 Atrial Rate 02/24/2017 65 MT Interval 02/24/2017 136 QRS DURATION 02/24/2017 84 QT Interval 02/24/2017 396 QTC CALCULATION(BEZET) 02/24/2017 411 P [place] 02/24/2017 31 R-[place] 02/24/2017 60 T Wave [place] 02/24/2017 61 Diagnosis 02/24/2017 Value:Normal sinus rhythm Normal ECG No previous ECGs available Confirmed by Apple COLLIER, L.S. (2) on 02/24/2017 5:06:47 PM Blood testing 10/29/2022: Hemoglobin 14.9, platelets (more content not included)... [facility] Evaluation note 05-27-2023 Note Date & Type Note Facility 05-27-2023 Evaluation note Encounter Date Diagnosis Assessment Notes May, Medicare annual wellness visit, subsequent (ICD-10 - Z00.00) Personalized health advice was given to the beneficiary including a written plan for screenings discussed and provided. Advanced care planning reviewed and/or information given as requested. Additional counseling was provided here today in regards to, [ ]. The above visit was performed by [ ], under direct supervision of [ ]. Document reviewed and amended by provider signed below. May, Acquired hypothyroidism (ICD-10 - E03.9) May, Screening mammogram for breast cancer (ICD-10 - Z12.31) [facility] Other History general Narrative - Reported Note Date & Type Note Facility History general Narrative - Reported Type Medical History Abnormal mammogram of right [address] Medical History Acquired hypothyroidism Medical History Osteoarthritis, chronic Surgical History T&A Surgical History SINUS SURGERY Surgical History CYSTO WITH STENTS Surgical History [facility] Hospitalization History SEE SURGICAL HX [facility] Other Summary Purpose Family History No Family History Records FoundNo Family History Records FoundNo Family History Records Found Advance Directives No Advanced Directives Records FoundNo Advanced Directives Records FoundNo Advanced Directives Records Found Additional Source Comments INFORMATION SOURCE (unrecogn ized section and content) DATE CREATED AUTHOR 08/24/2018 [facility] DATE CREATED AUTHOR AUTHOR'S ORGANIZ ATION [facility]02[facility]2022 [facility] DATE CREATED AUTHOR AUTHOR'S ORGANIZ ATION 05/09/2024 [facility] REASON FOR VISIT (unrecogniz ed section and content) Wellness FOR RECORDS PERTAINING TO PATIENTS WHO ARE OR HAVE BEEN ENROLLED IN A CHEMICAL DEPENDENCY/SUBSTANCEABUSE PROGRAM, SOME INFORMATION MAY BE OMITTED. This clinical summary was aggregated from multiple sources. Caution should be exercised in using it in the provision of clinical care. This summary normalizes information from multiple sources, and as a consequence, information in this document may materially change the coding, format and clinical context of patient data. In addition, data may be omitted in some cases. CLINICAL DECISIONS SHOULD BE BASED ON THE PRIMARY CLINICAL RECORDS. [facility]. provides no warranty or guarantee of the accuracy or completeness of information in this document.
[2024-06-23 10:26] LABS: Basophils Percent Auto 0.5 % (0.2-2.0); Eosinophils Absolute Auto 0.2 10^3/uL (0.0-0.7); Eosinophils Percent Auto 2.7 % (0.9-7.0); Hematocrit 41.9 % (36.0-48.0); Hemoglobin 13.8 g/dL (12.0-16.0); Immature Granulocytes Abs Auto 0.02 10^3/uL (0.00-0.03); Immature Granulocytes Pct Auto 0.2 % (0.0-0.5); Lymphocytes Absolute Auto 2.6 10^3/uL (1.2-3.8); Lymphocytes Percent Auto 30.9 % (20.5-60.0); Mean Corpuscular HGB Conc 32.9 g/dL (29.9-35.2); Mean Corpuscular Hemoglobin 31.2 pg (26.7-34.0); Mean Corpuscular Volume 94.6 fL (81.0-99.0); Mean Platelet Volume 8.8 fL (9.5-13.5); Monocytes Absolute Auto 0.7 10^3/uL (0.3-0.8); Monocytes Percent Auto 8.2 % (1.7-12.0); Neutrophils Absolute Auto 4.9 10^3/uL (1.4-6.5); Neutrophils Percent Auto 57.5 % (43.0-75.0); Platelet Count 359 10^3/uL (150-450); Red Blood Count 4.43 10^6/uL (4.20-5.40); Red Cell Distribution Width 12.3 % (11.0-15.0); White Blood Count 8.5 10^3/uL (4.0-11.0)
[2024-06-23 10:50] LABS: Alanine Aminotransferase 26 U/L (14-59); Albumin Globulin Ratio 0.8; Albumin Level 3.3 g/dL (3.4-5.0); Alkaline Phosphatase 85 U/L (46-116); Anion Gap 10.6; Aspartate Amino Transferase 18 U/L (15-37); BUN Creatinine Ratio 17.5; Bilirubin Total 0.5 mg/dL (0.2-1.0); Calcium 9.8 mg/dL (8.5-10.1); Carbon Dioxide 28.5 mmol/L (21.0-32.0); Chloride 102 mmol/L (98-107); Chol HDL Ratio 3.2; Cholesterol 143 mg/dL (<=200); Estimated GFR (African America >60 (>=60 mL/min/1.73m^2); Estimated GFR (Non-African Ame 56 (>=60 mL/min/1.73m^2); Globulin 4.2 g/dL; Glucose 121 mg/dL (74-106); HDL Cholesterol 45 mg/dL (40-60); Potassium 4.1 mmol/L (3.5-5.1); Sodium 137 mmol/L (136-145); Total Protein 7.5 g/dL (6.4-8.2); Triglycerides 156 mg/dL (<=150); VLDL CHOLESTEROL 31.2 mg/dL
== END 2024-06-23 10:01 | disposition home or self-care (01) ==
LOC: LAB 10:06
PROVIDERS: PCP Family Medicine; Visit Provider Internal Medicine Interventional Cardiology
DX: E78.2 Mixed hyperlipidemia (principal); I48.0 Paroxysmal atrial fibrillation; I10 Essential (primary) hypertension
CPT/HCPCS: 36415; 80053; 80061; 85025

== ENCOUNTER 2024-07-07 11:21 | Outpatient (OUT) | payer MEDICARE, OTHER, SELFPAY ==
--- OUTSIDE RECORDS SUMMARY | 2024-07-07 11:25 | XMS_ITS | CCD ---
Author Organization [facility] Care Team Providers Care Checker/Stocker Name Role Phone PHYSICIAN, DEFAULT Unavailable Unavailable [...] Entry Oral daily for 0 Dec, Active apixaban 5 mg oral tablet (1 source) Factor Xa Inhibitor Start: 06-24-2024 take 1 tablet by mouth twice daily Apixaban (Eliquis) 5 mg tablet Active 5 MG PO Twice daily June 24, 2024 12:00am furosemide 40 mg oral tablet (2 sources) Loop Diuretic Start: 06-24-2024 take 40 mg by mouth once daily Furosemide Active 40 MG PO Daily June 24, 2024 12:00am Start: 12-31-2021 take 1 tablet by juan carlos th every twenty-four hours Furosemide 40 MG 1 tablet Orally Once a day for 0 days Dec, Active levothyroxine sodium 0.075 mg oral tablet (3 sources) l-Thyroxine Start: 03-02-2024 take 1 tablet by mouth once daily Levothyroxine Active 0 .ROUTE .COMPLEX 90 March 02, 2024 2:16pm TAKE 1 TABLET BY MOUTH EVERY DAY Start: 03-02-2024 End: 03-02-2024 take 75 ug by mouth once daily Levothyroxine Discontin ued 75 MCG PO Daily March 02, 2024 12:00am March 02, 2024 2:16pm take 1 tablet by juan carlos th once daily Levothyroxine Sodium 75 MCG TAKE 1 TABLET BY MOUTH EVERY DAY for 90 days Active lutein 20 mg oral capsule (1 source) Start: 12-31-2021 take 1 capsule by mouth every twenty-four hours Lutein 20 MG 1 capsule with a meal Orally Once a day for 0 days Dec, Active 24 hr metoprolol succinate 25 mg extended release oral tablet (3 sources) beta-Adrenergic Kim Start: 06-24-2024 Metoprolol Succinate Active MG PO June 24, 2024 12:00am Start: 06-24-2024 take 50 mg by mouth once daily Metoprolol Succinate Active 50 MG PO Daily June 24, 2024 12:00am Start: 12-31-2021 take 25 mg by mouth [...] a day for 0 days Dec, Active Potassium Chloride (Klor-Con M20) 20 mEq tablet,ER particles/crystals (1 source) Start: 06-24-2024 Potassium Chloride (Klor-Con M20) 20 mEq tablet,ER particles/crystal s Active MEQ PO June 24, 2024 12:00am rosuvastatin calcium 10 mg oral tablet (2 sources) HMG-CoA Reductase Inhibitor Start: 06-24-2024 take 10 mg by mouth once daily Rosuvastatin Active 10 MG PO Daily June 24, 2024 12:00am Start: 12-31-2021 take 1 tablet by juan carlos th every twenty-four hours Rosuvastatin Calcium 10 MG 1 tablet Orally Once a day for 0 days Dec, Active Problems Active Problems Problem Classification Problem Date Documented Da te Episodic/Chronic Cardiac dysrhythmias (4 sources) Paroxysmal atrial fibrillation; Translations: [Atrial fibrillation] Onset: 10-17-2023 Chronic Disorders of lipid metabolism (3 sources) Other hyperlipidemia; Translations: [Mixed hyperlipidemia] Onset: 08-29-2022 Chronic Essential hypertension (6 sources) Essential (primary) hypertension; Translations: [ESSENTIAL PRIMARY HYPERTENSION] Onset: 08-31-2022 Chronic Heart valve disorders (8 sources) Nonrheumatic aortic (valve) stenosis; Translations: [Nonrheumatic mitral (valve) stenosis] Onset: 08-28-2022 Chronic Osteoarthritis (3 sources) Osteoarthritis; Translations: [Unspecified osteoarthritis, unspecified site] 06-24-2024 Chronic Other screening for suspected conditions (not mental disorders or infectious disease) (4 sources) Mammography abnormal; Translations: [Other abnormal and inconclusive findings on diagnostic imaging of breast] Episodic Thyroid disorders (9 sources) Hypothyroidism, unspecified; Translations: [Acquired hypothyroidism] Onset: 02-01-2022 Chronic Past or Other Problems Problem Classification Problem Date Documented Da te Episodic/Chronic Cardiac dysrhythmias (2 sources) Palpitations; Translations: [Palpitations] Onset: 08-26-2023 Episodic Results Test Name Value Interpretation Reference Range Facility Basophils Auto (Bld) [#/Vol] on 06-23-2024 Basophils (Bld) [#/Vol] 0.0 10 3/uL 0.0-0.1 [facility] Basophils/100 WBC Auto (Bld) on 06-23-2024 Basophils/100 WBC (Bld) 0.5 % 0.2-2.0 [facility] Cholesterol in LDL Calc [Mas s/Vol]on 06-23-2024 Cholesterol in LDL [Mass/Vol] 67.0 mg/dL [facility] Comment on above: <100 mg/dl [id number] 0-129 mg/dl NEAR OR ABOVE [id number] mg/dl BORDERLINE [id number] mg/dl HIGH>190 mg/dl VERY HIGH Cholesterol in VLDL Calc [Ma ss/Vol]on 06-23-2024 Cholesterol in VLDL [Mass/Vol] 31.2 mg/dL [facility] Eosinophils/100 WBC Auto (Bl d)on 06-23-2024 Eosinophils/100 WBC (Bld) 2.7 % 0.9-7.0 [facility] Erythrocyte distribution wid th Auto (RBC) [Ratio]on 06-23-2024 Erythrocyte distribution width (RBC) [Ratio] 12.3 % 11.0-15.0 [facility] Estimated glomerular filtrat ion rate (GFR) non- Americanon 06-23-2024 GFR/1.73 sq M.predicted among non-blacks MDRD (S/P/Bld) [Vol rate/Area] 56 mL/min/{1.73_m2} Low >=60 mL/min/1.73m 2 [facility] Globulin Calc (S) [Mass/Vol] on 06-23-2024 Globulin (S) [Mass/Vol] 4.2 g/dL [facility] Hematocrit Auto (Bld) [Volum e fraction]on 06-23-2024 Hematocrit (Bld) [Volume fraction] 41.9 % 36.0-48.0 [facility] Hemoglobin [Mass/volume] in Bloodon 06-23-2024 Hemoglobin (Bld) [Mass/Vol] 13.8 g/dL 12.0-16.0 [facility] Laboratory - Chemistry and C hemistry - challengeon 06-23-2024 Albumin [Mass/Vol] 3.3 g/dL Low 3.4-5.0 [facility] ALP [Catalytic activity/Vol] 85 U/L 46-116 [facility] ALT [Catalytic activity/Vol] 26 U/L 14-59 [facility] AST [Catalytic activity/Vol] 18 U/L 15-37 [facility] Bilirubin [Mass/Vol] 0.5 mg/dL 0.2-1.0 [facility] Calcium [Mass/Vol] 9.8 mg/dL 8.5-10.1 [facility] Chloride [Moles/Vol] 102 mmol/L 98-107 [facility] Cholesterol [Mass/Vol] 143 mg/dL <=200 [facility] Cholesterol in HDL [Mass/Vol] 45 mg/dL 40-60 [facility] Comment on above: > or =60 mg/dl - LOW CARDIOVASCULAR RISK<40 mg/dl - HIGH CARDIOVASCULAR RISK CO2 [Moles/Vol] 28.5 mmol/L 21.0-32.0 [facility] Creatinine [Mass/Vol] 0.97 mg/dL 0.55-1.02 [facility] GFR/1.73 sq M.predicted MDRD (S/P/Bld) [Vol rate/Area] mL/min/{1.73_m2} >=60 mL/min/1.73m 2 [facility] Glucose [Mass/Vol] 121 mg/dL High 74-106 [facility] Potassium [Moles/Vol] 4.1 mmol/L 3.5-5.1 [facility] Protein [Mass/Vol] 7.5 g/dL 6.4-8.2 [facility] Sodium [Moles/Vol] 137 mmol/L 136-145 [facility] Triglyceride [Mass/Vol] 156 mg/dL High <=150 [facility] Urea nitrogen [Mass/Vol] 17.0 mg/dL 7.0-18.0 [facility] Urea nitrogen/Creatinine [Mass ratio] 17.5 mg/mg [facility] Laboratory - Hematology and Cell countson 06-23-2024 Immature granulocytes/100 WBC (Bld) 0.2 % 0.0-0.5 [facility] Leukocytes [#/volume] correc monty for nucleated erythrocytes in Blood by Automated counon 06-23-2024 WBC corrected for nucl RBC Auto (Bld) [#/Vol] 8.5 10 3/uL 4.0-11.0 [facility] Lymphocytes Auto (Bld) [#/Vo l]on 06-23-2024 Lymphocytes (Bld) [#/Vol] 2.6 10 3/uL 1.2-3.8 [facility] Lymphocytes/100 WBC Auto (Bl d)on 06-23-2024 Lymphocytes/100 WBC (Bld) 30.9 % 20.5-60.0 [facility] MCH Auto (RBC) [Entitic mass ]on 06-23-2024 MCH (RBC) [Entitic mass] 31.2 pg 26.7-34.0 [facility] MCHC Auto (RBC) [Mass/Vol]on 06-23-2024 MCHC (RBC) [Mass/Vol] 32.9 g/dL 29.9-35.2 [facility] MCV Auto (RBC) [Entitic vol] on 06-23-2024 MCV (RBC) [Entitic vol] 94.6 fL 81.0-99.0 [facility] Monocytes Auto (Bld) [#/Vol] on 06-23-2024 Monocytes (Bld) [#/Vol] 0.7 10 3/uL 0.3-0.8 [facility] Monocytes/100 WBC Auto (Bld) on 06-23-2024 Monocytes/100 WBC (Bld) 8.2 % 1.7-12.0 [facility] Neutrophils Auto (Bld) [#/Vo l]on 06-23-2024 Neutrophils (Bld) [#/Vol] 4.9 10 3/uL 1.4-6.5 [facility] Neutrophils/100 WBC Auto (Bl d)on 06-23-2024 Neutrophils/100 WBC (Bld) 57.5 % 43.0-75.0 [facility] No Panel Informationon 06-23 Eosinophils # (Auto) 0.2 10 3/uL 0.0-0.7 [facility] Immature Granulocyte # (Auto) 0.02 10 3/uL 0.00-0.03 [facility] Platelet mean volume Auto (B ld) [Entitic vol]on 06-23-2024 Platelet mean volume (Bld) [Entitic vol] 8.8 fL Low 9.5-13.5 [facility] Platelets Auto (Bld) [#/Vol] on 06-23-2024 Platelets (Bld) [#/Vol] 359 10 3/uL 150-450 [facility] RBC Auto (Bld) [#/Vol]on RBC (Bld) [#/Vol] 4.43 10 6/uL 4.20-5.40 [facility] Serum or plasma albumin/glob ulin mass ratioon 06-23-2024 Albumin/Globulin [Mass ratio] 0.8 {ratio} [facility] Serum or plasma anion gap de terminationon 06-23-2024 Anion gap [Moles/Vol] 10.6 mmol/L [facility] Serum or plasma total choles terol/high density lipoprotein (HDL) cholesterol mass javier 06-23-2024 Cholesterol.total/Ch olesterol in HDL [Mass ratio] 3.2 {ratio} [facility] Comment on above: 3.3 - 4.4 LOW RISK4. 4 - 7.1 AVERAGE RISK7.1 - 11.0 MODERATE RISK>11.0 HIGH RISK Office Visiton 05-07-2024 Follow-up visit [id number] Viral Lopez 1950 F Date Provider Department Center 05/07/2024 FLAVIA GAMBOA ARUN [facility] No family history on file Level of Service:06174 IN OFFICE/OUTPATIENT ESTABLISHED MOD MDM 30 MIN [facility] Office Visiton 10-17-2023 Follow-up visit [id number] Viral Lopez 1950 F Date Provider Department Center 10/17/2023 FLAVIA GAMBOA AR[facility] No family history on file Level of Service:45519 IN OFFICE/OUTPATIENT ESTABLISHED MOD MDM 30 MIN [facility] 36on 08-27-[address] 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 Please have her [...] tomorrow for ECG and Eliquis samples. Normal [facility] Office Visiton 08-26-2023 Follow-up visit [id number] Viral Lopez 1950 F Date Provider Department Center 08/26/2023 FLAVIA GAMBOA ARUN [facility] No family history on file Level of Service:79015 IN OFFICE/OUTPATIENT ESTABLISHED MOD MDM 30-39 MIN [facility] CBC AUTO DIFFon 10-29-2022 BASO # 0.1 103/ul Normal 0.0-0.1 [facility] Comment on above: Performed By: #### C BC #### [facility] [address] [place] [address] Dr. Alexa Burgos Basophils/100 WBC (Bld) 0.6 % Normal 0.2-2.0 [facility] Comment on above: Performed By: #### C BC #### [facility] [address] [place] [address] Dr. Alexa Burgos EO # 0.2 103/ul Normal 0.0-0.7 [facility] Comment on above: Performed By: #### C BC #### [facility] [address] [place] [address] Dr. Alexa Burgos Eosinophils/100 WBC (Bld) 2.1 % Normal 0.9-7.0 [facility] Comment on above: Performed By: #### C BC #### [facility] [address] [place] [address] Dr. Alexa Burgos Erythrocyte distribution width (RBC) [Ratio] 12.5 % Normal 11.0-15.0 [facility] Comment on above: Performed By: #### C BC #### [facility] [address] [place] [address] Dr. Alexa Burgos Hematocrit (Bld) [Volume fraction] 43.6 % Normal 36.0-48.0 [facility] Comment on above: Performed By: #### C BC #### [facility] [address] [place] [address] Dr. Alexa Burgos Hemoglobin (Bld) [Mass/Vol] 14.9 g/dL Normal 12.0-16.0 [facility] Comment on above: Performed By: #### C BC #### [facility] [address] [place] [address] Dr. Alexa Burgos IG # 0.02 10e3/ul Normal 0.00-0.03 [facility] Comment on above: Performed By: #### C BC #### [facility] [address] [place] [address] Dr. Alexa Burgos IG % 0.2 % Normal 0.0-0.5 [facility] Comment on above: Performed By: #### C BC #### [facility] [address] [place] [address] Dr. Alexa Burgos LYMPH # 3.2 103/ul Normal 1.2-3.8 [facility] Comment on above: Performed By: #### C BC #### [facility] [address] [place] [address] Dr. Alexa Burgos Lymphocytes/100 WBC (Bld) 36.3 % Normal 20.5-60.0 [facility] Comment on above: Performed By: #### C BC #### [facility] [address] [place] [address] Dr. Alexa Burgos MANUAL DIFF REQ NO Normal [facility] Comment on above: Performed By: #### C BC #### [facility] [address] [place] [address] Dr. Alexa Burgos MCH (RBC) [Entitic mass] 31.5 pg Normal 26.7-34.0 [facility] Comment on above: Performed By: #### C BC #### [facility] [address] [place] [address] Dr. Alexa Burgos MCHC (RBC) [Mass/Vol] 34.2 g/dL Normal 29.9-35.2 [facility] Comment on above: Performed By: #### C BC #### [facility] [address] [place] [address] Dr. Alexa Burgos MCV (RBC) [Entitic vol] 92.2 fL Normal 81.0-99.0 [facility] Comment on above: Performed By: #### C BC #### [facility] [address] [place] [address] Dr. Alexa Burgos MONO # 0.7 103/ul Normal 0.3-0.8 [facility] Comment on above: Performed By: #### C BC #### [facility] [address] [place] [address] Dr. Alexa Burgos Monocytes/100 WBC (Bld) 8.2 % Normal 1.7-12.0 [facility] Comment on above: Performed By: #### C BC #### [facility] [address] [place] [address] Dr. Alexa Burgos NEUT # 4.6 103/ul Normal 1.4-6.5 [facility] Comment on above: Performed By: #### C BC #### [facility] [address] [place] [address] Dr. Alexa Burgos Neutrophils/100 WBC (Bld) 52.6 % Normal 43.0-75.0 [facility] Comment on above: Performed By: #### C BC #### [facility] [address] [place] [address] Dr. Alexa Burgos Platelet mean volume (Bld) [Entitic vol] 8.9 fL Critically low 9.5-13.5 [facility] Comment on above: Performed By: #### C BC #### [facility] [address] [place] [address] Dr. Alexa Burgos PLT 393 103/ul Normal 150-450 [facility] Comment on above: Performed By: #### C BC #### [facility] [address] [place] [address] Dr. Alexa Burgos RBC 4.73 106/ul Normal 4.20-5.40 [facility] Comment on above: Performed By: #### C BC #### [facility] [address] [place] [address] Dr. Alexa Burgos WBC 8.8 103/ul Normal 4.0-11.0 [facility] Comment on above: Performed By: #### C BC #### [facility] [address] [place] [address] Dr. Alexa Burgos LIPID PROFILEon 10-29-2022 CHOL-HDL RATIO NORM SEE BELOW Normal [facility] Comment on above: Result Comment: 3.3 - 4.4 LOW RISK 4.4 - 7.1 AVERAGE RISK 7.1 - 11.0 MODERATE RISK >11.0 HIGH RISK Performed By: #### L IPID, TSH, CMP #### [facility] [address] [place], [place] [id number] Dr. Alexa Burgos Cholesterol [Mass/Vol] 128 mg/dL Normal <=200 [facility] Comment on above: Performed By: #### L IPID, TSH, CMP #### [facility] [address] [address] [address] Alexa Burgos Cholesterol in HDL [Mass/Vol] 48 mg/dL Normal 40-60 [facility] Comment on above: Performed By: #### L IPID, TSH, CMP #### [facility] [address] [address] [address] Alexa Burgos Cholesterol in LDL [Mass/Vol] 60.6 mg/dL Normal [facility] Comment on above: Performed By: #### L IPID, TSH, CMP #### [facility] [address] [place] [address] Dr. Alexa Burgos Cholesterol.total/Ch olesterol in HDL [Mass ratio] 2.7 {ratio} Normal [facility] Comment on above: Performed By: #### L IPID, TSH, CMP #### [facility] [address] [address] [address] Alexa Burgos HDL NORMAL > or = 60 mg/dl - LO W CARDIOVASCULAR RISK <40 mg/dl - HIGH CARDIOVASCULAR RISK Normal [facility] Comment on above: Performed By: #### L IPID, TSH, CMP #### [facility] [address] [place] [address] Dr. Alexa Burgos LDL CALC NORMAL SEE BELOW Normal [facility] Comment on above: Result Comment: <100 mg/dl OPTIMAL 100 - 129 mg/dl NEAR OR ABOVE OPTIMAL 130 - 159 mg/dl BORDERLINE HIGH 160 - 189 mg/dl HIGH >190 mg/dl VERY HIGH Performed By: #### L IPID, TSH, CMP #### [facility] [address] [place] [address] Dr. Alexa Burgos Triglyceride [Mass/Vol] 97 mg/dL Normal <=150 [facility] Comment on above: Performed By: #### L IPID, TSH, CMP #### [facility] [address] [place] [address] Dr. Alexa Burgos VLDL CALC 19.4 mg/dL Normal [facility] Comment on above: Performed By: #### L IPID, TSH, CMP #### [facility] [address] [address] [address] Alexa Burgos PROF 14(COMP METB)on 023 Albumin [Mass/Vol] 3.8 g/dL Normal 3.4-5.0 [facility] Comment on above: Performed By: #### L IPID, TSH, CMP #### [facility] [address] [place] [address] Dr. Alexa Burgos Albumin/Globulin [Mass ratio] 0.9 {ratio} Normal [facility] Comment on above: Performed By: #### L IPID, TSH, CMP #### [facility] [address] [place] [address] Dr. Alexa Burgos ALP [Catalytic activity/Vol] 90 U/L Normal 46-116 [facility] Comment on above: Performed By: #### L IPID, TSH, CMP #### [facility] [address] [place] [address] Dr. Alexa Burgos ALT [Catalytic activity/Vol] 31 U/L Normal 14-59 [facility] Comment on above: Performed By: #### L IPID, TSH, CMP #### [facility] [address] [place] [address] Dr. Alexa Burgos Anion gap [Moles/Vol] 11.3 mmol/L Normal [facility] Comment on above: Performed By: #### L IPID, TSH, CMP #### [facility] [address] [place] [address] Dr. Alexa Burgos AST [Catalytic activity/Vol] 21 U/L Normal 15-37 [facility] Comment on above: Performed By: #### L IPID, TSH, CMP #### [facility] [address] [place] [address] Dr. Alexa Burgos Bilirubin [Mass/Vol] 0.5 mg/dL Normal 0.2-1.0 [facility] Comment on above: Performed By: #### L IPID, TSH, CMP #### [facility] [address] [address] [address] Alexa Burogs Calcium [Mass/Vol] 10.3 mg/dL Critically high 8.5-10.1 [facility] Comment on above: Performed By: #### L IPID, TSH, CMP #### [facility] [address] [address] [address] Alexa Burgos Chloride [Moles/Vol] 102 mmol/L Normal 98-107 [facility] Comment on above: Performed By: #### L IPID, TSH, CMP #### [facility] [address] [address] [address] Alexa Burgos CO2 [Moles/Vol] 32.6 mmol/L Critically high 21.0-32.0 [facility] Comment on above: Performed By: #### L IPID, TSH, CMP #### [facility] [address] [place] [address] Dr. Alexa Burgos Creatinine [Mass/Vol] 0.69 mg/dL Normal 0.55-1.02 [facility] Comment on above: Performed By: #### L IPID, TSH, CMP #### [facility] [address] [place] [address] Dr. Alexa Burgos EGFR-AF AUSTRIAN >60 Normal >=60 [facility] Comment on above: Performed By: #### L IPID, TSH, CMP #### [facility] [address] [place] [address] Dr. Alexa Burgos EGFR-NON AF AUSTRIAN >60 Normal >=60 [facility] Comment on above: Performed By: #### L IPID, TSH, CMP #### [facility] [address] [place] [address] Dr. Alexa Burgos Globulin (S) [Mass/Vol] 4.3 g/dL Normal [facility] Comment on above: Performed By: #### L IPID, TSH, CMP #### [facility] [address] [place] [address] Dr. Alexa Burgos Glucose [Mass/Vol] 119 mg/dL Critically high 74-106 [facility] Comment on above: Performed By: #### L IPID, TSH, CMP #### [facility] [address] [place] [address] Dr. Alexa Burgos Potassium [Moles/Vol] 3.9 mmol/L Normal 3.5-5.1 [facility] Comment on above: Performed By: #### L IPID, TSH, CMP #### [facility] [address] [place] [address] Dr. Alexa Burgos Protein [Mass/Vol] 8.1 g/dL Normal 6.4-8.2 [facility] Comment on above: Performed By: #### L IPID, TSH, CMP #### [facility] [address] [place] [address] Dr. Alexa Burgos Sodium [Moles/Vol] 142 mmol/L Normal 136-145 [facility] Comment on above: Performed By: #### L IPID, TSH, CMP #### [facility] [address] [place] [address] Dr. Alexa Burgos Urea nitrogen [Mass/Vol] 15.0 mg/dL Normal 7.0-18.0 [facility] Comment on above: Performed By: #### L IPID, TSH, CMP #### [facility] [address] [place] [address] Dr. Alexa Burgos Urea nitrogen/Creatinine [Mass ratio] 21.7 mg/mg Normal [facility] Comment on above: Performed By: #### L IPID, TSH, CMP #### [facility] [address] [place] [address] Dr. Alexa Burgos TSHon 10-29-2022 TSH 3.855 uIU/mL Critically high 0.358-3.740 [facility] Comment on above: Performed By: #### L IPID, TSH, CMP #### [facility] [address] [place] [address] Dr. Alexa Burgos ECHOCARDIO M/2D COMPLETEon 1 10-29-2021 ECHOCARDIO M/2D COMPLETE Patient: VIRAL LOPEZ Exam Date: 08/28/2022 : 1950 Gender:F Ordering : DR FLAVIA GARCIA M.D. Admission #: [id number] Family : DR TONYA QUIÑONES M.D. Order #: [id number] CLICK HERE TO VIEW EXAM ECHOCARDIOGRAM REPORT [...] Leonardo Edwards M.D. on 08/29/2022 at 11:17 [facility] FREE T4on 02-01-2022 Free T4 [Mass/Vol] 1.00 ng/dL Normal 0.76-1.46 [facility] Comment on above: Performed By: #### F T4 #### [facility] [address] [place] [address] Dr. Alexa Burgos TSHon 02-01-2022 TSH 2.470 uIU/mL Normal 0.358-3.740 [facility] Comment on above: Performed By: #### T SH #### [facility] [address] [address] [address] Alexa Burgos TSH RANGE SEE BELOW Normal [facility] Comment on above: Result Comment: <0.3 4 UIU/ml HYPERTHYROID 0.34-5.60 UIU/ml EUTHYROID >5.60 UIU/ml HYPOTHYROID Performed By: #### T SH #### [facility] [address] [place] [address] Dr. Alexa Burgos Vital Signs Date Time Vital Sign Value Performing Clinician Facility 06-24-2024 08:05-0400 Body height 157.48 cm [facility] 06-24-2024 08:05-0400 Body mass index (BMI) [Ratio] 36.1 kg/m2 [facility] 06-24-2024 08:05-0400 Body weight 89.58 kg [facility] 06-24-2024 08:05-0400 Diastolic blood pressure 84 mm[Hg] [facility] 06-24-2024 08:05-0400 Heart rate 72 /min [facility] 06-24-2024 08:05-0400 Respiratory rate 16 /min [facility] 06-24-2024 08:05-0400 SaO2% (BldA) [Mass fraction] 96 % [facility] 06-24-2024 08:05-0400 Systolic blood pressure 132 mm[Hg] [facility] 05-27-2023 11:30-0400 Body height 157.48 cm Tonya Quiñones Other [employer] Other 05-27-2023 11:30-0400 Body mass index (BMI) [Ratio] 38.48 kg/m2 Tonya Quiñones Other [employer] Other 05-27-2023 11:30-0400 Body weight 95.44 kg Tonya Quiñones Other [employer] Other 05-27-2023 11:30-0400 Diastolic blood pressure 68 mm[Hg] Tonya Quiñones Other [employer] Other 05-27-2023 11:30-0400 Respiratory rate 12 /min Tonya Quiñones Other [employer] Other 05-27-2023 11:30-0400 Systolic blood pressure 112 mm[Hg] Tonya Quiñones Other [employer] Other Encounters Encounter Date Encounter Type Care Provider Facility Start: 06-24-2024 End: 06-24-2024 ambulatory [facility] Work Phone: Start: 06-24-2024 End: 06-24-2024 Patient encounter procedure [facility] Phys[facility] Work Phone: Start: 06-23-2024 Non-patient / Non-visit [facility] Phys[facility] [employer] Work Phone: Start: 05-07-2024 End: 05-07-2024 ambulatory [facility] Start: 10-17-2023 End: 10-17-2023 ambulatory [facility] Start: 08-26-2023 End: 08-26-2023 ambulatory [facility] Start: 05-27-2023 End: 05-27-2023 ambulatory Tonya Quiñones Other [employer] Other Start: 05-27-2023 Patient encounter procedure Tonya Quiñones [facility] Start: 10-29-2022 End: 10-30-2022 ambulatory ARI PHOENIXCHIDISolomon Facility:[facility] Start: 08-28-2022 End: 08-29-[address] FLAVIA GARCIA Facility:[facility] Start: 02-01-2022 End: 02-02-[address] TONYA QUÑIONES Facility:[facility] Start: 08-13-2018 End: 08-14-2018 Patient encounter procedure DEFAULT PHYSICIAN Facility:[facility] Start: 02-17-2018 End: 02-18-2018 Patient encounter procedure DEFAULT PHYSICIAN Facility:[facility] Plan of Treatment Date Care Activity Detail Author MG Breast - bilateral Screening [facility] Immunizations Immunization Date Immunization Notes Care Provider Fa cility 06-10-2022 COVID-19 Pfizer (bivalent) Tonya Quiñones Other [facility] 06-10-2022 influenza virus vaccine, unspecified formulation [facility] 06-10-2022 influenza, high dose seasonal, preservative-free Tonya Quiñones Other [employer] [facility] [employer] Other 07-02-2021 COVID-19 Vaccine Pfi zer - Documentation Purposes Only Tonya Quiñones Other [facility] 07-02-2021 influenza virus vaccine, split virus (incl. purified surface antigen) Tonya Quiñones Other [employer] Other 07-02-2021 influenza virus vaccine, unspecified formulation [facility] 12-05-2020 COVID-19 Vaccine Pfi zer - Documentation Purposes Only Tonya Quiñones Other [facility] 11-13-2020 COVID-19 Vaccine Pfi zer - Documentation Purposes Only Tonya Quiñones Other [facility] 07-09-2018 pneumococcal conjuga te vaccine, 13 valent Tonya Quiñones Other [facility] 06-18-2018 influenza virus vaccine, split virus (incl. purified surface antigen) Tonya Quiñones Other [employer] Other 06-18-2018 influenza virus vaccine, unspecified formulation [facility] Payers Date Payer Category Payer Medicare [id number] 1958 Unknown [id number] 1950 Unknown [id number] [id number] 1950 Unknown [id number] 1950 Unknown [id number] 2.16.84 [id number] 1950 Unknown [id number] 2.16.84 [id number] 1950 Unknown [id number] 2.16.84 [id number] Medicare Medicare [id number] Unknown Unknown Regular Insurance [id number] Social History Date Type Detail Facility Sex Assigned At [employer] Other Start: 1950 Sex Assigned At Female F [facility] Progress note 05-07-2024 Note Date & Type Note Facility 05-07-2024 Note [facility] Yoselin Lopez is a 74 y.o. [...] her on Eliquis for anticoagulation given elevated [id number] score. I also increased metoprolol dosage and [...] Rate 02/24/2017 65 Atrial Rate 02/24/2017 65 IN Interval 02/24/2017 136 QRS DURATION 02/24/2017 84 QT Interval 02/24/2017 396 QTC CALCULATION(BEZET) 02/24/2017 411 P [place] 02/24/2017 31 R-[place] 02/24/2017 60 T Wave [place] 02/24/2017 61 Diagnosis 02/24/2017 Value:Normal sinus rhythm Normal ECG No previous ECGs available Confirmed by Apple COLLIER, L.S. (2) on 02/24/2017 5:06:47 PM (more content not included)... [facility] Progress note 10-17-2023 Note Date & Type Note Facility 10-17-2023 Note [facility] Subjective Viral Lopez is a 73 [...] her on Eliquis for anticoagulation given elevated [id number] score. I also increased metoprolol dosage and [...] Rate 02/24/2017 65 Atrial Rate 02/24/2017 65 IN Interval 02/24/2017 136 QRS DURATION 02/24/2017 84 QT Interval 02/24/2017 396 QTC CALCULATION(BEZET) 02/24 (more content not included)... [facility] Progress note 08-26-2023 Note Date & Type Note Facility 08-26-2023 Note [facility] Yoselin Lopez is a 73 y.o. year old female patient being seen for 1 year follow up hypertension and valve disorder. She had echo last week. Has had 2 episodes of flip flopping heart palpitations recently that have woken her from sleep. C/o cough. She has quit her walking at the [employer] due to cough. She only gets SOB [...] Rate 02/24/2017 65 Atrial Rate 02/24/2017 65 IN Interval 02/24/2017 136 QRS DURATION 02/24/2017 84 QT Interval 02/24/2017 396 QTC CALCULATION(BEZET) 02/24/2017 411 P [place] 02/24/2017 31 R-[place] 02/24/2017 60 T Wave [place] 02/24/2017 61 Diagnosis 02/24/2017 Value:Normal sinus rhythm Normal ECG No previous ECGs available Confirmed by Apple COLLIER, L.S. (2) on 02/24/2017 5:06:47 PM Blood testing 10/29/2022: Hemoglobin 14.9, platelets (more content not included)... [facility] Evaluation note 05-27-2023 Note Date & [...] mammogram for breast cancer (ICD-10 - Z12.31) [employer] Other Evaluation note Note Date & Type Note Facility Evaluation note Diagnosis Onset Date Acquired hypothyroidism acut e Atrial fibrillation acute Osteoarthritis, chronic acut e Screening mammogram for breast cancer [facility] Work Phone: History general Narrative - Reported Note Date & Type Note Facility History general Narrative - Reported Type Medical History Abnormal mammogram of right nela [facility] Medical History Acquired hypothyroidism Medical History Osteoarthritis, chronic Surgical History T&A Surgical History SINUS SURGERY Surgical History CYSTO WITH STENTS Surgical History [facility] Hospitalization History SEE SURGICAL HX [employer] Other Summary Purpose Family History Relationship Condition Age at Onset Recorded Date/[place] brother Malignant neoplasm Unknown Malignant neoplasm of breast Unknown mother Malignant neoplasm Unknown Advance Directives Advance Directive Response Recorded Date/ Time Advance Directives No June 24, 2024 10:42am Chief Complaint and Reason for Visit Chief Complaint Thyroid Check Reason for Visit Acquired hypothyroid ism Atrial fibrillation Osteoarthritis, chronic Screening mammogram for breast cancer Additional Source Comments INFORMATION SOURCE (unrecogn ized section and content) DATE CREATED AUTHOR 08/24/2018 [facility] DATE CREATED AUTHOR AUTHOR'S ORGANIZ ATION 11/02/2022 [facility] DATE CREATED AUTHOR AUTHOR'S ORGANIZ ATION 05/09/2024 [facility] REASON FOR VISIT (unrecogniz ed section and content) [facility] Teams (unrecognized sec tion and content) Team Status: Active Member Role Status Dates Tonya Quiñones MD Primary Care Provider Active Team Status: Active Member Role Status Dates Tonya Quiñones MD Primary Care Provider Active Start: June 23, 2024 Flavia Garcia MD Attending Provider Active Start: June 23, 2024 Team Status: Inactive Member Role Status Dates Tonya Quiñones MD Primary Care Provide r, Attending Provider Active Start: June 24, 2024 End: June 24, 2024 Goals (unrecognized section and content) Goals may be documented in a n alternate section FOR RECORDS PERTAINING TO PATIENTS WHO ARE [...] BE BASED ON THE PRIMARY CLINICAL RECORDS. [facility] [employer] [facility]. provides no warranty or guarantee of the accuracy or completeness of information in this document.
--- NOTE | 2024-07-07 11:30 | MM_ITS ---
Patient Name: VIRAL BIRD MR#: [id number] : 1950 Exam Date: 07/07/2024 Ordering Doctor: DR Tonya Quiñones M.D. RADIOLOGY REPORT PROCEDURE: MM TOMOSYNTHESIS SCREENING BI COMPARISON: MM TOMOSYNTHESIS SCREENING BI, 06/19/2023. MG MAMM KULDIP SCRN W CAD DIG, 06/11/2016. INDICATIONS: Screening Calculator Name NCI Breast Cancer Risk Assessment Tool 5 Year Breast Cancer Risk 9.00% Lifetime Breast Cancer Risk 20.60% Personal Breast Cancer No Personal Ovarian Cancer No Treatments None Family Cancers Mother with breast cancer at age 78; Sister with breast cancer at age 55; Sister with thyroid cancer at age 62; Daughter with thyroid cancer at age 30. LOCATION: [facility] BREAST COMPOSITION: There are scattered areas of fibroglandular density. FINDINGS: DIAGNOSTIC CATEGORY 2--BENIGN FINDING: RIGHT BREAST: No significant suspicious finding. Scattered benign-appearing lymph nodes are present. No significant change has occurred. LEFT BREAST: No significant suspicious finding. Scattered benign-appearing lymph nodes are present. No significant change has occurred. RECOMMENDATIONS: ROUTINE MAMMOGRAM AND CLINICAL EVALUATION IN 12 MONTHS. PLEASE NOTE: A NORMAL MAMMOGRAM DOES NOT EXCLUDE THE POSSIBILITY OF BREAST CANCER. A CLINICALLY SUSPICIOUS PALPABLE LUMP SHOULD BE BIOPSIED. Dictated by: Laureano Pradhan M.D. on 07/11/2024 at 18:32 Approved by: Laureano Pradhan M.D. on 07/11/2024 at 18:35
[2024-07-07 13:23] LABS: TSH W/ REFLEX FT4 2.349 uIU/mL (0.358-3.740)
== END 2024-07-07 11:22 | disposition home or self-care (01) ==
LOC: MAMMO 11:22
PROVIDERS: PCP Family Medicine; Visit Provider Family Medicine
DX: Z12.31 Encounter for screening mammogram for malignant neoplasm of breast (principal); Z80.3 Family history of malignant neoplasm of breast; Z80.8 Family history of malignant neoplasm of other organs or systems
CPT/HCPCS: 36415; 77063; 77067; 84443

== ENCOUNTER 2024-08-05 09:49 | Outpatient (OUT) | payer MEDICARE, OTHER, SELFPAY ==
--- NOTE | 2024-08-05 09:49 | CA_ITS ---
Patient Name: VIRAL BIRD MR#: [id number] : 1950 Exam Date: 08/05/2024 Ordering Doctor: DR FLAVIA PENA M.D. ECHOCARDIOGRAM REPORT PROCEDURE: CA ECHO DOPPLER COMPLETE INDICATIONS: Nonrheumatic Aortic and Mitral valve stenosis COMPARISON: None. DESCRIPTION: COMPLETE ECHOCARDIOGRAM Real-time transthoracic echocardiography with 2D, M-mode, spectral and color flow Doppler performed. QUALITY: Technical quality was good. BA 1.89 m2 LEFT VENTRICLE: Normal chamber size. Mild concentric left ventricular hypertrophy. Global left ventricular systolic function is normal. LV EF: Visual estimation of left ventricular ejection fraction is 65% DIASTOLIC: Grade 2 diastolic dysfunction. ATRIAL SEPTUM: LEFT ATRIUM: Severe dilatation. RIGHT ATRIUM: Moderate dilatation. RIGHT VENTRICLE: Normal chamber size. Normal right ventricular systolic function. TRICUSPID VALVE: Normal mobility and thickness. No stenosis with trivial regurgitation. No evidence of pulmonary hypertension. RVSP 32 mmHg MITRAL VALVE: Moderately thickened with decreased mobility. Mild mitral valve stenosis. Moderate mitral annular calcification. Mild mitral regurgitation. MVA 3.3 cm?, PHT 65 ms, Mean gradient 4.0 mmHg. AORTIC VALVE: Normal trileaflet appearance. Moderately calcified aortic valve. Moderately diminished mobility. Doppler velocity suggests moderate to severe aortic valve stenosis. DVI 0.33, BRANDON 1.0 cm2, Vmax 2.92 m/s, Mean gradient 21 mmHg. Mild aortic regurgitation. AORTIC ROOT: Normal diameter and appearance. PULMONIC VALVE: Normal thickness and mobility. No stenosis. Trivial regurgitation. PERICARDIUM: Trivial pericardial effusion. IVC: Collapses with inspirations. Normal size. PLEURA: CONCLUSION: 1. Mild concentric liver regular hypertrophy with normal systolic function. Estimated LVEF is 65%. 2. Normal right ventricular size and systolic function. 3. Grade 2 diastolic dysfunction. 4. Moderate to severe biatrial dilatation. 5. Moderate to severe aortic valve stenosis, with mild regurgitation. 6. Mild mitral valve stenosis and mild regurgitation. 7. Normal right-sided pressures. 8. Trivial pericardial effusion. Adult Echocardiography Procedure Report Left Ventricle LVEDD (3.7 - 5.6 cm): 4.14 cm LVESD (2.2 - 4.0 cm): 3.01 cm LVIVS thickness (0.6 - 1.2 cm): 1.03 cm LVPW thickness (0.5 - 1.0 cm): 1.25 cm e': 0.06 m/s E - e': 21.21 LVOT Max Gradient: 3.75 mm[Hg] LVOT Area (cm2): 0.97 m/s Peak Velocity (LVOT): 0.97 m/s Mean Velocity (LVOT): 0.72 m/s LVOT Diameter 1.88 cm Left Ventricular Ejection Fraction: 65 % Left Atrium LA Volume Index (2D A2C): 50.15 ml/m2 Left Atrium Systolic Dimension: 4.48 cm Mitral Valve MV E to A Ratio: 1.08 Mitral Valve A-Wave Peak Velocity: 1.21 m/s Mitral Valve E-Wave Peak Velocity: 1.31 m/s Right Ventricle RV Internal Diastolic Dimension: 3.61 cm Aorta AO Root Diam: 2.69 cm Ascending Ao Diam: 2.39 cm Aortic Valve AoV Area (Peak Matt): 0.96 cm2, 0.99 cm2, 0.97 cm2, 0.97 cm2 AoV Area (VTI): 1.12 cm2, 1.[address] [place]: 1.65 m/s2 Pressure Half-Time: 612.82 ms Peak Velocity(Antegrade Flow): 2.69 m/s, 2.79 m/s, 2.92 m/s, 2.76 m/s Peak Gradient(Antegrade Flow): 29.00 mm[Hg], 31.18 mm[Hg], 34.12 mm[Hg], 30.48 mm[Hg] Mean Velocity(Antegrade Flow): 1.93 m/s, 1.74 m/s, 2.18 m/s Mean Gradient(Antegrade Flow): 16.34 mm[Hg], 14.79 mm[Hg], 21.03 mm[Hg] Velocity Time Integral: 70.61 cm, 63.74 cm, 78.84 cm Tricuspid Valve Peak Velocity (Regurgitant Flow): 2.62 m/s, 2.69 m/s Pulmonic Valve Mean Gradient: 3.73 mm[Hg] Mean Velocity: 0.91 m/s Peak Velocity: 1.25 m/s, 1.10 m/s Peak Gradient: 4.88 mm[Hg], 6.23 mm[Hg] Right Atrium Right Atrium Systolic Pressure: 50.41 ml, 50.41 ml Dictated by: Flavia Pena M.D. on 08/05/2024 at 20:03 Approved by: Flavia Pena M.D. on 08/05/2024 at 20:11
--- OUTSIDE RECORDS SUMMARY | 2024-08-05 10:06 | XMS_ITS | CCD ---
Author Organization [facility] Care Team Providers Care Dock Worker Name Role Phone PHYSICIAN, DEFAULT Unavailable Unavailable PHYSICIAN, DEFAULT Unavailable Unavailable SELF, REFERRED Unavailable Unavailable PHYSICIAN, DEFAULT Unavailable Unavailable PHYSICIAN, DEFAULT Unavailable Unavailable SELF, REFERRED Unavailable Unavailable ARI SHELTON Admitting Unavailable ARI SHELTON Consulting Unavailable ARI SHELTON Attending Unavailable KENNETH, DR TONYA Webb Primary Care Unavailable QIUÑONES, DR TONYA Webb Primary [facility] Unavailable QUIÑONES, [...] Basophils (Bld) [#/Vol] 0.0 10 3/uL 0.0-0.1 [facility] Basophils/100 WBC Auto (Bld) on 06-23-2024 Basophils/100 WBC (Bld) 0.5 % 0.2-2.0 [facility] Cholesterol in LDL Calc [Mas s/Vol]on 06-23-2024 Cholesterol in LDL [Mass/Vol] 67.0 mg/dL [facility] Comment on above: <100 mg/dl [id number] 0-129 mg/dl NEAR OR ABOVE [id number] mg/dl BORDERLINE [id number] mg/dl HIGH>190 mg/dl VERY HIGH Cholesterol in VLDL Calc [Ma ss/Vol]on 06-23-2024 Cholesterol in VLDL [Mass/Vol] 31.2 mg/dL [facility] Eosinophils/100 WBC Auto (Bl d)on 06-23-2024 Eosinophils/100 WBC (Bld) 2.7 % 0.9-7.0 [facility] Erythrocyte distribution wid th Auto (RBC) [Ratio]on 06-23-2024 Erythrocyte distribution width (RBC) [Ratio] 12.3 % 11.0-15.0 [facility] Estimated glomerular filtrat ion rate (GFR) non- Americanon 06-23-2024 GFR/1.73 sq M.predicted among non-blacks MDRD (S/P/Bld) [Vol rate/Area] 56 mL/min/{1.73_m2} Low >=60 mL/min/1.73m 2 [facility] Globulin Calc (S) [Mass/Vol] on 06-23-2024 Globulin (S) [Mass/Vol] 4.2 g/dL [facility] Hematocrit Auto (Bld) [Volum e fraction]on 06-23-2024 Hematocrit (Bld) [Volume fraction] 41.9 % 36.0-48.0 [facility] Hemoglobin [Mass/volume] in Bloodon 06-23-2024 Hemoglobin (Bld) [Mass/Vol] 13.8 g/dL 12.0-16.0 [facility] Laboratory - Chemistry and C hemistry - challengeon 06-23-2024 Albumin [Mass/Vol] 3.3 g/dL Low 3.4-5.0 [facility] ALP [Catalytic activity/Vol] 85 U/L 46-116 [facility] ALT [Catalytic activity/Vol] 26 U/L 14-59 [facility] AST [Catalytic activity/Vol] 18 U/L 15-37 [facility] Bilirubin [Mass/Vol] 0.5 mg/dL 0.2-1.0 [facility] Calcium [Mass/Vol] 9.8 mg/dL 8.5-10.1 [facility] Chloride [Moles/Vol] 102 mmol/L 98-107 [facility] Cholesterol [Mass/Vol] 143 mg/dL <=200 [facility] Cholesterol in HDL [Mass/Vol] 45 mg/dL 40-60 [facility] Comment on above: > or =60 mg/dl - LOW CARDIOVASCULAR RISK<40 mg/dl - HIGH CARDIOVASCULAR RISK CO2 [Moles/Vol] 28.5 mmol/L 21.0-32.0 [facility] Creatinine [Mass/Vol] 0.97 mg/dL 0.55-1.02 [facility] GFR/1.73 sq M.predicted MDRD (S/P/Bld) [Vol rate/Area] mL/min/{1.73_m2} >=60 mL/min/1.73m 2 [facility] Glucose [Mass/Vol] 121 mg/dL High 74-106 [facility] Potassium [Moles/Vol] 4.1 mmol/L 3.5-5.1 [facility] Protein [Mass/Vol] 7.5 g/dL 6.4-8.2 [facility] Sodium [Moles/Vol] 137 mmol/L 136-145 [facility] Triglyceride [Mass/Vol] 156 mg/dL High <=150 [facility] Urea nitrogen [Mass/Vol] 17.0 mg/dL 7.0-18.0 [facility] Urea nitrogen/Creatinine [Mass ratio] 17.5 mg/mg [facility] Laboratory - Hematology and Cell countson 06-23-2024 Immature granulocytes/100 WBC (Bld) 0.2 % 0.0-0.5 [facility] Leukocytes [#/volume] correc monty for nucleated erythrocytes in Blood by Automated counon 06-23-2024 WBC corrected for nucl RBC Auto (Bld) [#/Vol] 8.5 10 3/uL 4.0-11.0 [facility] Lymphocytes Auto (Bld) [#/Vo l]on 06-23-2024 Lymphocytes (Bld) [#/Vol] 2.6 10 3/uL 1.2-3.8 [facility] Lymphocytes/100 WBC Auto (Bl d)on 06-23-2024 Lymphocytes/100 WBC (Bld) 30.9 % 20.5-60.0 [facility] MCH Auto (RBC) [Entitic mass ]on 06-23-2024 MCH (RBC) [Entitic mass] 31.2 pg 26.7-34.0 [facility] MCHC Auto (RBC) [Mass/Vol]on 06-23-2024 MCHC (RBC) [Mass/Vol] 32.9 g/dL 29.9-35.2 [facility] MCV Auto (RBC) [Entitic vol] on 06-23-2024 MCV (RBC) [Entitic vol] 94.6 fL 81.0-99.0 [facility] Monocytes Auto (Bld) [#/Vol] on 06-23-2024 Monocytes (Bld) [#/Vol] 0.7 10 3/uL 0.3-0.8 [facility] Monocytes/100 WBC Auto (Bld) on 06-23-2024 Monocytes/100 WBC (Bld) 8.2 % 1.7-12.0 [facility] Neutrophils Auto (Bld) [#/Vo l]on 06-23-2024 Neutrophils (Bld) [#/Vol] 4.9 10 3/uL 1.4-6.5 [facility] Neutrophils/100 WBC Auto (Bl d)on 06-23-2024 Neutrophils/100 WBC (Bld) 57.5 % 43.0-75.0 [facility] No Panel Informationon 06-23 Eosinophils # (Auto) 0.2 10 3/uL 0.0-0.7 [facility] Immature Granulocyte # (Auto) 0.02 10 3/uL 0.00-0.03 [facility] Platelet mean volume Auto (B ld) [Entitic vol]on 06-23-2024 Platelet mean volume (Bld) [Entitic vol] 8.8 fL Low 9.5-13.5 [facility] Platelets Auto (Bld) [#/Vol] on 06-23-2024 Platelets (Bld) [#/Vol] 359 10 3/uL 150-450 [facility] RBC Auto (Bld) [#/Vol]on RBC (Bld) [#/Vol] 4.43 10 6/uL 4.20-5.40 [facility] Serum or plasma albumin/glob ulin mass ratioon 06-23-2024 Albumin/Globulin [Mass ratio] 0.8 {ratio} [facility] Serum or plasma anion gap de terminationon 06-23-2024 Anion gap [Moles/Vol] 10.6 mmol/L [facility] Serum or plasma total choles terol/high density lipoprotein (HDL) cholesterol mass javier 06-23-2024 Cholesterol.total/Ch olesterol in HDL [Mass ratio] 3.2 {ratio} [facility] Comment on above: 3.3 - 4.4 LOW RISK4. 4 - 7.1 AVERAGE RISK7.1 - 11.0 MODERATE RISK>11.0 HIGH RISK Office Visiton 05-07-2024 Follow-up visit [id number] Viral Lopez 1950 F Date Provider Department Center 05/07/2024 FLAVIA GAMBOA AR[facility] No family history on file Level of Service:66806 NE OFFICE/OUTPATIENT ESTABLISHED MOD MDM 30 MIN [facility] Office Visiton 10-17-2023 Follow-up visit [id number] Viral Lopez 1950 F Date Provider Department Center 10/17/2023 FLAVIA GAMBOA AR[facility] No family history on file Level of Service:69083 NE OFFICE/OUTPATIENT ESTABLISHED MOD MDM 30 MIN [facility] 36on 08-27-[address] Garcia after reviewing patient's serious report on event monitor (scanned into v[employer] emerging media) she has atrial fibrillation. Please have her [...] tomorrow for ECG and Eliquis samples. Normal [facility] Office Visiton 08-26-2023 Follow-up visit [id number] Viral Lopez 1950 F Date Provider Department Center 08/26/2023 FLAVIA GAMBOA ARUN [facility] No family history on file Level of Service:61156 NE OFFICE/OUTPATIENT ESTABLISHED MOD MDM 30-39 MIN [facility] CBC AUTO DIFFon 10-29-2022 BASO # 0.1 103/ul Normal 0.0-0.1 [facility] Comment on above: Performed By: #### C BC #### [facility] [address] [place] [address] Dr. Alexa Burgos Basophils/100 WBC (Bld) 0.6 % Normal 0.2-2.0 [facility] Comment on above: Performed By: #### C BC #### [facility] [address] [place] [address] Dr. Alexa Burgos EO # 0.2 103/ul Normal 0.0-0.7 [facility] Comment on above: Performed By: #### C BC #### [facility] [address] [place] [address] Dr. Alexa Burgos Eosinophils/100 WBC (Bld) 2.1 % Normal 0.9-7.0 [facility] Comment on above: Performed By: #### C BC #### [facility] [address] [place] [address] Dr. Alexa Burgos Erythrocyte distribution width (RBC) [Ratio] 12.5 % Normal 11.0-15.0 [facility] Comment on above: Performed By: #### C BC #### [facility] [address] [place] [address] Dr. Alexa Burgos Hematocrit (Bld) [Volume fraction] 43.6 % Normal 36.0-48.0 [facility] Comment on above: Performed By: #### C BC #### [facility] [address] [place] [address] Dr. Alexa Burgos Hemoglobin (Bld) [Mass/Vol] 14.9 g/dL Normal 12.0-16.0 [facility] Comment on above: Performed By: #### C BC #### [facility] [address] [place] [address] Dr. Alexa Burgos IG # 0.02 10e3/ul Normal 0.00-0.03 [facility] Comment on above: Performed By: #### C BC #### [facility] [address] [place] [address] Dr. Alexa Burgos IG % 0.2 % Normal 0.0-0.5 [facility] Comment on above: Performed By: #### C BC #### [facility] [address] [place] [address] Dr. Alexa Burgos LYMPH # 3.2 103/ul Normal 1.2-3.8 [facility] Comment on above: Performed By: #### C BC #### [facility] [address] [place] [address] Dr. Alexa Burgos Lymphocytes/100 WBC (Bld) 36.3 % Normal 20.5-60.0 [facility] Comment on above: Performed By: #### C BC #### [facility] [address] [place] [address] Dr. Alexa Burgos MANUAL DIFF REQ NO Normal [facility] Comment on above: Performed By: #### C BC #### [facility] [address] [place] [address] Dr. Alexa Burgos MCH (RBC) [Entitic mass] 31.5 pg Normal 26.7-34.0 [facility] Comment on above: Performed By: #### C BC #### [facility] [address] [place] [address] Dr. Alexa Burgos MCHC (RBC) [Mass/Vol] 34.2 g/dL Normal 29.9-35.2 [facility] Comment on above: Performed By: #### C BC #### [facility] [address] [place] [address] Dr. Alexa Burgos MCV (RBC) [Entitic vol] 92.2 fL Normal 81.0-99.0 [facility] Comment on above: Performed By: #### C BC #### [facility] [address] [place] [address] Dr. Alexa Burgos MONO # 0.7 103/ul Normal 0.3-0.8 [facility] Comment on above: Performed By: #### C BC #### [facility] [address] [place] [address] Dr. Alexa Burgos Monocytes/100 WBC (Bld) 8.2 % Normal 1.7-12.0 [facility] Comment on above: Performed By: #### C BC #### [facility] [address] [place] [address] Dr. Alexa Burgos NEUT # 4.6 103/ul Normal 1.4-6.5 [facility] Comment on above: Performed By: #### C BC #### [facility] [address] [place] [address] Dr. Alexa Burgos Neutrophils/100 WBC (Bld) 52.6 % Normal 43.0-75.0 [facility] Comment on above: Performed By: #### C BC #### [facility] [address] [place] [address] Dr. Alexa Burgos Platelet mean volume (Bld) [Entitic vol] 8.9 fL Critically low 9.5-13.5 [facility] Comment on above: Performed By: #### C BC #### [facility] [address] [place] [address] Dr. Alexa Burgos PLT 393 103/ul Normal 150-450 [facility] Comment on above: Performed By: #### C BC #### [facility] [address] [place] [address] Dr. Alexa Burgos RBC 4.73 106/ul Normal 4.20-5.40 [facility] Comment on above: Performed By: #### C BC #### [facility] [address] [place] [address] Dr. Alexa Burgos WBC 8.8 103/ul Normal 4.0-11.0 [facility] Comment on above: Performed By: #### C BC #### [facility] [address] [place] [address] Dr. Alexa Burgos LIPID PROFILEon 10-29-2022 CHOL-HDL RATIO NORM SEE BELOW Normal [facility] Comment on above: Result Comment: 3.3 - 4.4 LOW RISK 4.4 - 7.1 AVERAGE RISK 7.1 - 11.0 MODERATE RISK >11.0 HIGH RISK Performed By: #### L IPID, TSH, CMP #### [facility] [address] [place], [place] [id number] Dr. Alexa Burgos Cholesterol [Mass/Vol] 128 mg/dL Normal <=200 [facility] Comment on above: Performed By: #### L IPID, TSH, CMP #### [facility] [address] [address] [address] Alexa Burgos Cholesterol in HDL [Mass/Vol] 48 mg/dL Normal 40-60 [facility] Comment on above: Performed By: #### L IPID, TSH, CMP #### [facility] [address] [address] [address] Alexa Burgos Cholesterol in LDL [Mass/Vol] 60.6 mg/dL Normal [facility] Comment on above: Performed By: #### L IPID, TSH, CMP #### [facility] [address] [place] [address] Dr. Alexa Burgos Cholesterol.total/Ch olesterol in HDL [Mass ratio] 2.7 {ratio} Normal [facility] Comment on above: Performed By: #### L IPID, TSH, CMP #### [facility] [address] [address] [address] Alexa Burgos HDL NORMAL > or = 60 mg/dl - LO W CARDIOVASCULAR RISK <40 mg/dl - HIGH CARDIOVASCULAR RISK Normal [facility] Comment on above: Performed By: #### L IPID, TSH, CMP #### [facility] [address] [place] [address] Dr. Alexa Burgos LDL CALC NORMAL SEE BELOW Normal [facility] Comment on above: Result Comment: <100 mg/dl OPTIMAL 100 - 129 mg/dl NEAR OR ABOVE OPTIMAL 130 - 159 mg/dl BORDERLINE HIGH 160 - 189 mg/dl HIGH >190 mg/dl VERY HIGH Performed By: #### L IPID, TSH, CMP #### [facility] [address] [place] [address] Dr. Alexa Burgos Triglyceride [Mass/Vol] 97 mg/dL Normal <=150 [facility] Comment on above: Performed By: #### L IPID, TSH, CMP #### [facility] [address] [place] [address] Dr. Alexa Burgos VLDL CALC 19.4 mg/dL Normal [facility] Comment on above: Performed By: #### L IPID, TSH, CMP #### [facility] [address] [address] [address] Alexa Burgos PROF 14(COMP METB)on 023 Albumin [Mass/Vol] 3.8 g/dL Normal 3.4-5.0 [facility] Comment on above: Performed By: #### L IPID, TSH, CMP #### [facility] [address] [place] [address] Dr. Alexa Burgos Albumin/Globulin [Mass ratio] 0.9 {ratio} Normal [facility] Comment on above: Performed By: #### L IPID, TSH, CMP #### [facility] [address] [place] [address] Dr. Alexa Burgos ALP [Catalytic activity/Vol] 90 U/L Normal 46-116 [facility] Comment on above: Performed By: #### L IPID, TSH, CMP #### [facility] [address] [place] [address] Dr. Alexa Burgos ALT [Catalytic activity/Vol] 31 U/L Normal 14-59 [facility] Comment on above: Performed By: #### L IPID, TSH, CMP #### [facility] [address] [place] [address] Dr. Alexa Burgos Anion gap [Moles/Vol] 11.3 mmol/L Normal [facility] Comment on above: Performed By: #### L IPID, TSH, CMP #### [facility] [address] [place] [address] Dr. Alexa Brugos AST [Catalytic activity/Vol] 21 U/L Normal 15-37 [facility] Comment on above: Performed By: #### L IPID, TSH, CMP #### [facility] [address] [place] [address] Dr. Alexa Burgos Bilirubin [Mass/Vol] 0.5 mg/dL Normal 0.2-1.0 [facility] Comment on above: Performed By: #### L IPID, TSH, CMP #### [facility] [address] [address] [address] Alexa Burgos Calcium [Mass/Vol] 10.3 mg/dL Critically high 8.5-10.1 [facility] Comment on above: Performed By: #### L IPID, TSH, CMP #### [facility] [address] [address] [address] Alexa Burgos Chloride [Moles/Vol] 102 mmol/L Normal 98-107 [facility] Comment on above: Performed By: #### L IPID, TSH, CMP #### [facility] [address] [address] [address] Alexa Burgos CO2 [Moles/Vol] 32.6 mmol/L Critically high 21.0-32.0 [facility] Comment on above: Performed By: #### L IPID, TSH, CMP #### [facility] [address] [place] [address] Dr. Alexa Burgos Creatinine [Mass/Vol] 0.69 mg/dL Normal 0.55-1.02 [facility] Comment on above: Performed By: #### L IPID, TSH, CMP #### [facility] [address] [place] [address] Dr. Alexa Burgos EGFR-AF KYRGYZ >60 Normal >=[address] [facility] Comment on above: Performed By: #### L IPID, TSH, CMP #### [facility] [address] [place] [address] Dr. Alexa Burgos EGFR-NON AF KYRGYZ >60 Normal >=60 [facility] Comment on above: Performed By: #### L IPID, TSH, CMP #### [facility] [address] [place] [address] Dr. Alexa Burgos Globulin (S) [Mass/Vol] 4.3 g/dL Normal [facility] Comment on above: Performed By: #### L IPID, TSH, CMP #### [facility] [address] [place] [address] Dr. Alexa Burgos Glucose [Mass/Vol] 119 mg/dL Critically high 74-106 [facility] Comment on above: Performed By: #### L IPID, TSH, CMP #### [facility] [address] [place] [address] Dr. Alexa Burgos Potassium [Moles/Vol] 3.9 mmol/L Normal 3.5-5.1 [facility] Comment on above: Performed By: #### L IPID, TSH, CMP #### [facility] [address] [place] [address] Dr. Alexa Burgos Protein [Mass/Vol] 8.1 g/dL Normal 6.4-8.2 [facility] Comment on above: Performed By: #### L IPID, TSH, CMP #### [facility] [address] [place] [address] Dr. Alexa Burgos Sodium [Moles/Vol] 142 mmol/L Normal 136-145 [facility] Comment on above: Performed By: #### L IPID, TSH, CMP #### [facility] [address] [place] [address] Dr. Alexa Burgos Urea nitrogen [Mass/Vol] 15.0 mg/dL Normal 7.0-18.0 [facility] Comment on above: Performed By: #### L IPID, TSH, CMP #### [facility] [address] [place] [address] Dr. Alexa Burgos Urea nitrogen/Creatinine [Mass ratio] 21.7 mg/mg Normal [facility] Comment on above: Performed By: #### L IPID, TSH, CMP #### [facility] [address] [place] [address] Dr. Alexa Burgos TSHon 10-29-2022 TSH 3.855 uIU/mL Critically high 0.358-3.740 [facility] Comment on above: Performed By: #### L IPID, TSH, CMP #### [facility] [address] [place] [address] Dr. Alexa Burgos ECHOCARDIO M/2D COMPLETEon 1 10-29-2021 ECHOCARDIO M/2D COMPLETE Patient: VIRAL LOPEZ Exam Date: 08/28/2022 : 1950 Gender:F Ordering : DR FLAVIA GARCIA M.D. Admission #: [id number] Family : DR TONYA QUIÑONES M.D. Order #: [id number] CLICK HERE TO VIEW EXAM ECHOCARDIOGRAM REPORT [...] Leonardo Edwards M.D. on 08/29/2022 at 11:17 [facility] FREE T4on 02-01-2022 Free T4 [Mass/Vol] 1.00 ng/dL Normal 0.76-1.46 [facility] Comment on above: Performed By: #### F T4 #### [facility] [address] [place] [address] Dr. Alexa Burgos TSHon 02-01-2022 TSH 2.470 uIU/mL Normal 0.358-3.740 [facility] Comment on above: Performed By: #### T SH #### [facility] [address] [address] [address] Alexa Burgos TSH RANGE SEE BELOW Normal [facility] Comment on above: Result Comment: <0.3 4 UIU/ml HYPERTHYROID 0.34-5.60 UIU/ml EUTHYROID >5.60 UIU/ml HYPOTHYROID Performed By: #### T SH #### [facility] [address] [place] [address] Dr. Alexa Burgos Vital Signs Date Time Vital Sign Value Performing Clinician Facility 06-24-2024 08:05-0400 Body height 157.[address] [facility] 06-24-2024 08:05-0400 Body mass index (BMI) [Ratio] 36.1 kg/m2 [facility] 06-24-2024 08:05-0400 Body weight 89.[address] [facility] 06-24-2024 08:05-0400 Diastolic blood pressure 84 mm[Hg] [facility] 06-24-2024 08:05-0400 Heart rate 72 /min [facility] 06-24-2024 08:05-0400 Respiratory rate 16 /min [facility] 06-24-2024 08:05-0400 SaO2% (BldA) [Mass fraction] 96 % [facility] 06-24-2024 08:05-0400 Systolic blood pressure 132 mm[Hg] [facility] 05-27-2023 11:30-0400 Body height 157.48 cm Tonya Quiñones Other [employer] Other 05-27-2023 11:30-0400 Body mass index (BMI) [Ratio] 38.48 kg/m2 Tonya Quiñones Other [employer] Other 05-27-2023 11:30-0400 Body weight 95.44 kg Tonya Quiñones Other [employer] Other 05-27-2023 11:30-0400 Diastolic blood pressure 68 mm[Hg] Tonya Quiñones Other [employer] Other 05-27-2023 11:30-0400 Respiratory rate 12 /min Tonya Quiñones Other [employer] Other 05-27-2023 11:30-0400 Systolic blood pressure 112 mm[Hg] Tonya Quiñones Other [employer] Other Encounters Encounter Date Encounter Type Care Provider Facility Start: 06-24-2024 End: 06-24-2024 ambulatory [facility] Work Phone: Start: 06-24-2024 End: 06-24-2024 Patient encounter procedure [facility] Physician [place] Work Phone: Start: 06-23-2024 Non-patient / Non-visit [facility] Physician [facility] [employer] Work Phone: Start: 05-07-2024 End: 05-07-2024 ambulatory [facility] Start: 10-17-2023 End: 10-17-2023 ambulatory [facility] Start: 08-26-2023 End: 08-26-2023 ambulatory [facility] Start: 05-27-2023 End: 05-27-2023 ambulatory Tonya Quiñones Other [employer] Other Start: 05-27-2023 Patient encounter procedure Tonya Quiñones [facility] Start: 10-29-2022 End: 10-30-2022 ambulatory ARI PHOENIXCHIDISolomon Facility:[facility] Start: 08-28-2022 End: 08-29-[address] FLAVIA GARCIA Facility:[facility] Start: 02-01-2022 End: 02-02-[address] TONYA QUIÑONES Facility:[facility] Start: 08-13-2018 End: 08-14-2018 Patient encounter procedure DEFAULT PHYSICIAN Facility:[facility] Start: 02-17-2018 End: 02-18-2018 Patient encounter procedure DEFAULT PHYSICIAN Facility:[facility] Plan of Treatment Date Care Activity Detail Author MG Breast - bilateral Screening [facility] Immunizations Immunization Date Immunization Notes Care Provider Fa cility 06-10-2022 COVID-19 Pfizer (bivalent) Tonya Quiñones Other [facility] 06-10-2022 influenza virus vaccine, unspecified formulation [facility] 06-10-2022 influenza, high dose seasonal, preservative-free Tonya Quiñones Other Known [facility] [x+1] Other 07-02-2021 COVID-19 Vaccine Pfi zer - Documentation Purposes Only Tonya Quiñones Other [facility] 07-02-2021 influenza virus vaccine, split virus (incl. purified surface antigen) Tonya Quiñones Other [employer] Other 07-02-2021 influenza virus vaccine, unspecified formulation [facility] 12-05-2020 COVID-19 Vaccine Pfi zer - Documentation Purposes Only Tonya Quiñones Other [facility] 11-13-2020 COVID-19 Vaccine Pfi zer - Documentation Purposes Only Tonya Quiñones Other [facility] 07-09-2018 pneumococcal conjuga te vaccine, 13 valent Tonya Quiñones Other [facility] 06-18-2018 influenza virus vaccine, split virus (incl. purified surface antigen) Tonya Quiñones Other [employer] Other 06-18-2018 influenza virus vaccine, unspecified formulation [facility] Payers Date Payer Category Payer Medicare [id number] 1958 Unknown [id number] 1950 Unknown [id number] 2.16.8 [id number] 1950 Unknown [id number] 2.16.8 [id number] 1950 Unknown [id number] 2.16.84 [id number] 1950 Unknown [id number] 2.16.84 [id number] 1950 Unknown [id number] 2.16.84 [id number] Medicare Medicare [id number] Unknown Unknown Regular Insurance [id number] Social History Date Type Detail Facility Sex Assigned At [employer] Other Start: 1950 Sex Assigned At Female [facility] [place] Progress note 05-07-2024 Note Date & Type Note Facility 05-07-2024 Note [facility] Yoselin Lopez is a 74 [...] her on Eliquis for anticoagulation given elevated [id number] score. I also increased metoprolol dosage and [...] Rate 02/24/2017 65 Atrial Rate 02/24/2017 65 NE Interval 02/24/2017 136 QRS DURATION 02/24/2017 84 QT Interval 02/24/2017 396 QTC CALCULATION(BEZET) 02/24/2017 411 P [place] 02/24/2017 31 R-[place] 02/24/2017 60 T Wave [place] 02/24/2017 61 Diagnosis 02/24/2017 Value:Normal sinus rhythm Normal ECG No previous ECGs available Confirmed by Apple COLLIER, L.S. (2) on 02/24/2017 5:06:47 PM (more content not included)... [facility] Progress note 10-17-2023 Note Date & Type Note Facility 10-17-2023 Note [facility] Subjective Viral Lopez is a [...] her on Eliquis for anticoagulation given elevated [id number] score. I also increased metoprolol dosage and [...] Rate 02/24/2017 65 Atrial Rate 02/24/2017 65 NE Interval 02/24/2017 136 QRS DURATION 02/24/2017 84 QT Interval 02/24/2017 396 QTC CALCULATION(BEZET) 02/24 (more content not included)... [facility] Progress note 08-26-2023 Note Date & Type Note Facility 08-26-2023 Note [facility] Yoselin Lopez is a 73 y.o. year old female patient being seen for 1 year follow up hypertension and valve disorder. She had echo last week. Has had 2 episodes of flip flopping heart palpitations recently that have woken her from sleep. C/o cough. She has quit her walking at the [employer] due to cough. She only gets SOB [...] Rate 02/24/2017 65 Atrial Rate 02/24/2017 65 NE Interval 02/24/2017 136 QRS DURATION 02/24/2017 84 QT Interval 02/24/2017 396 QTC CALCULATION(BEZET) 02/24/2017 411 P [place] 02/24/2017 31 R-[place] 02/24/2017 60 T Wave [place] 02/24/2017 61 Diagnosis 02/24/2017 Value:Normal sinus rhythm Normal ECG No previous ECGs available Confirmed by Apple COLLIER, L.S. (2) on 02/24/2017 5:06:47 PM Blood testing 10/29/2022: Hemoglobin 14.9, platelets (more content not included)... [facility] Evaluation note 05-27-2023 Note Date & [...] mammogram for breast cancer (ICD-10 - Z12.31) [employer] Other Evaluation note Note Date & Type Note Facility Evaluation note Diagnosis Onset Date Acquired hypothyroidism acut e Atrial fibrillation acute Osteoarthritis, chronic acut e Screening mammogram for breast cancer [facility] Work Phone: History general Narrative - Reported Note Date & Type Note Facility History general Narrative - Reported Type Medical History Abnormal mammogram of right nela st Medical History Acquired hypothyroidism Medical History Osteoarthritis, chronic Surgical History T&A Surgical History SINUS SURGERY Surgical History CYSTO WITH STENTS Surgical History [facility] Hospitalization History SEE SURGICAL HX [employer] Other Summary Purpose Family History Relationship Condition [...] and content) DATE CREATED AUTHOR 08/24/2018 [facility] DATE CREATED AUTHOR AUTHOR'S ORGANIZ ATION 11/02/2022 [facility] DATE CREATED AUTHOR AUTHOR'S ORGANIZ ATION 05/09/2024 [facility] REASON FOR VISIT (unrecogniz ed section [...] BE BASED ON THE PRIMARY CLINICAL RECORDS. [facility]. provides no warranty or guarantee of the accuracy or completeness of information in this document.
== END 2024-08-05 09:50 | disposition home or self-care (01) ==
LOC: CARD 09:50
PROVIDERS: PCP Family Medicine; Visit Provider Internal Medicine Interventional Cardiology
DX: I35.0 Nonrheumatic aortic (valve) stenosis (principal); I34.2 Nonrheumatic mitral (valve) stenosis
CPT/HCPCS: 93306

== ENCOUNTER 2025-02-04 09:51 | Outpatient (OUT) | payer MEDICARE, OTHER, SELFPAY ==
--- OUTSIDE RECORDS SUMMARY | 2024-12-29 10:47 | XMS_ITS ---
Author Name Auto Generated Organization [facility] Care Team Providers Care Bee Tender Name Role Phone FLAVIA GARCIA Attending Unavailable CHRIS KING Attending Unavailable TIMOTHY YANG Referring Unavailable PROBLEMS DATE TYPE CONDITION / CODE ATTENDING STATUS [facility] 08/31/2022 Admitting Diagnosis Essential (primary) hypertension / I10(ICD-10) FLAVIA GARCIA [facility] 08/29/2022 Admitting Diagnosis Mixed hyperlipidemia / E78.2(ICD-10) [facility] 05/07/2024 Admitting Diagnosis Paroxysmal atrial fibrillation / I48.0(ICD-10) [facility]EC[facility] 05/07/2024 Admitting Diagnosis Nonrheumatic aortic (valve) stenosis / I35.0(ICD-10) [facility]EC[facility] 05/07/2024 Admitting Diagnosis Nonrheumatic mitral (valve) stenosis / I34.2(ICD-10) FLAVIA GARCIA [facility] PROCEDURES No Procedure Records Found RESULTS 36 Observed: 08/20/2024 4:53 PM Status: COMPLETED Source: [facility] Echo ordered to be done late January 2025 prior to apt with Dr. Garcia in February 2025. 36 Observed: 08/19/2024 2:23 PM Status: COMPLETED Source: [facility] Regarding echo result from 10/05/2023: MD Sherri Mccormick MA Her blood work is ok, her echo showed worsening of the aortic valve narrowing but still not severe yet. I can see her 6 months from now. LM for patient on her VM making her aware of echo result, and that she doesn't need to come back to see Dr. Garcia until February 2025. Dr. Garcia, did you want her to have repeat echo in February 2025 prior to apt? PROGRESS Observed: 05/07/2024 2:30 PM Status: COMPLETED Source: [facility] Cardiology - [facility] Yoselin Lopez is a 74 y.o. [...] her on Eliquis for anticoagulation given elevated [id number] score. I also increased metoprolol dosage and [...] Rate 02/24/2017 65 Atrial Rate 02/24/2017 65 GA Interval 02/24/2017 136 QRS DURATION 02/24/2017 84 QT Interval 02/24/2017 396 QTC CALCULATION(BEZET) 02/24/2017 411 P [place] 02/24/2017 31 R-[place] 02/24/2017 60 T Wave [place] 02/24/2017 61 Diagnosis 02/24/2017 Value:Normal sinus rhythm Normal ECG No previous ECGs available Confirmed by Apple COLLIER, L.S. (2) on 02/24/2017 5:06:47 PM Blood testing 10/29/2022: Hemoglobin 14.9, platelets 393, potassium 3.9, BUN 15, creatinine 0.69, EGFR more than 60, LFTs normal, cholesterol 128, HDL 48, triglycerides 97, LDL 61. Imaging and other tests Event monitor 08/26/2023 - 09/25/2023: Sinus rhythm with frequent episodes of atrial fibrillation some with rapid ventricular response and aberrant conduction. Echocardiogram 08/21/2023: Moderate concentric left ventricular hypertrophy with normal systolic function. Estimated LVEF is 60 to 65%. Normal right ventricular size and systolic function. Moderate aortic valve stenosis. Mild mitral valve stenosis. Normal right-sided pressures. Echocardiogram 08/28/2022: EF 65%, mild concentric LVH, grade 2 diastolic dysfunction, no wall abnormalities, trivial mitral regurg, moderately calcified aortic valve, moderate aortic valve stenosis Echocardiogram 09/05/2021: Normal ventricular systolic function, grade 2 diastolic dysfunction, moderate aortic valve stenosis with mild regurgitation. Aortic valve area 1.1 cm???, DVI 0.34. No pericardial effusion. Normal right- sided pressures. Blood testing 09/16/2019: Potassium 4.1, BUN 20, creatinine 1.23. Echocardiogram 07/08/2019: Global left ventricular systolic function is hyperdynamic (Visually estimated EF 75%). No regional wall motion abnormality. Grade 2, moderate diastolic dysfunction (pseudonormalized LV filling pattern). Normal right ventricular systolic function. The left atrium is mildly enlarged. Moderate aortic valve stenosis. Mean gradient 24 mmHg, Peak 50 mmHg. Area 1.0 sqcm. Doppler studies suggest normal right sided pressures. There is a minimal pericardial effusion. Echocardiogram 08/13/2018: Global left ventricular systolic function is normal (Visually estimated EF 65%). No regional wall motion abnormality. Grade 1, mild diastolic dysfunction (abnormal relaxation). Normal right ventricular systolic function. The left atrium is moderately enlarged. Moderate aortic valve stenosis. Mean gradient 30 mmHg, Peak 55 mmHg. Area 1.2 sqcm. Doppler studies suggest normal right sided pressures. There is a minimal pericardial effusion. ECG 02/24/2017: Normal sinus rhythm. Normal ECG Echocardiogram 02/17/2018: Global left ventricular systolic function is normal (Visually estimated EF 60-65%). No regional wall motion abnormality. Grade 1, mild diastolic dysfunction (abnormal relaxation). Normal right ventricular systolic function. The left atrium is severely enlarged. The right atrium is mildly enlarged. Mild mitral regurgitation. Moderate aortic valve stenosis. (peak Gr 55; mean Gr 29; area 1.0 sqcm). Trivial aortic valve regurgitation. Doppler studies suggest normal right sided pressures. RVSP 28 mmHg. Cardiac cath 02/24/2017: 1. Normal epicardial coronary arteries. 2. Mild aortic stenosis. 3. Moderately elevated right and left ventricular filling pressure. 4. Preserved cardiac output and cardiac index. Echocardiogram 02/04/2017: Normal LV systolic function. Moderate aortic stenosis (mean Gr 19/ peak Gr 36). RVSP 31 mmHg Assessment/Plan Diagnoses and all orders for this visit: PAF (paroxysmal atrial fibrillation) ([facility]) - Comprehensive metabolic panel; Future - CBC and differential; Future Nonrheumatic aortic valve stenosis - Transthoracic echo (TTE) complete; Future Essential hypertension - Comprehensive metabolic panel; Future - CBC and differential; Future Mixed hyperlipidemia - Lipid panel; Future Nonrheumatic mitral valve stenosis - Transthoracic echo (TTE) complete; Future Aortic valve stenosis: Moderate by echocardiography August 2023. She does not seem to be very much symptomatic from it. We will continue monitoring. I will plan a follow-up echocardiogram in 6 months. Her echocardiogram also showed mild mitral stenosis. This will need follow up. Paroxysmal atrial fibrillation: She has recently discovered paroxysmal atrial fibrillation as demonstrated by the event monitor. She was started on Eliquis therapy to reduce the risk of stroke given elevated [id number] score of 3 due to age, gender and hypertension. She has done well with increasing the metoprolol dosage. Hyperlipidemia: I will check CBC, CMP and lipid panel. Follow up in about 6 months (around 11/07/2024). Flavia Garcia MD OFFICE VISIT Observed: 05/07/2024 2:30 PM Status: COMPLETED Source: [facility] [id number] Viral Lopez F Date Provider Department Center 05/07/2024 FLAVIA GAMBOA ARUN [facility] No family history on file Level of Service:35709 [place] OFFICE/OUTPATIENT ESTABLISHED MOD MDM 30 MIN ALLERGIES DATE TYPE / CODE NAME / CODE REACTION SEVERITY SOURCE SYSTEMIC/[id number]( SNOMED CT) NO KNOWN ALLERGIES [facility] ENCOUNTERS ADMIT/DISCHARGE ACCOUNT NUMBER ADMITTING ENCOUNTER CLASS LOCATION SOURCE 12/29/2024/ 5 [id number] Ambulatory Building:[facility] OPHT [facility] 05/07/2024/ 4 [id number] Ambulatory Building:[facility] PAYERS ENCOUNTER GUARANTOR PAYER SUBSCRIBER SOURCE 12/29/2024 VIRAL LOZA: [place] [address]Fri: () Primary Insurance:MEDICAREPolic y Number: [id number] Date:[id number] Name:Medicare VIRAL LOZA: [id number] [place] [address] [facility] 12/29/2024 Secondary Insura nce:GPM LIFEPolicy Number: [id number] Date:2023-02-12 VIRAL FORTUNEB: [id number] [place] [address] [facility] 05/07/2024 Primary Insurance:MEDICAREPolic y Number: [id number] Date:[id number] Name:Medicare VIRAL LOZA: [id number] [place] [address] [facility] 05/07/2024 Secondary Insurance:GENERIC COMMERCIALPolicy Number: [id number] Date:2019-09-15 VIRAL LOZA: [id number] [place] [address] [facility]
--- OUTSIDE RECORDS SUMMARY | 2025-02-04 09:55 | XMS_ITS | Encounter Summary ---
Author Organization [facility] Address [address] [place] [address] Care Team Providers Care Stone Unloader Name Role Phone Tonya Quiñones MD Primary Care Provider [phone] Reason for Visit * Reason Comments Med Refill Encounter Details Date Type Department Care Team (Late st Contact Info) Description 06/24/2022 Refill [facility] [address] [place] [address] [phone] Tito Garcia MD [address] [facility] [place] [address] [facility] [place] [address] Benign hypertensive heart disease without congestive heart failure Social History Tobacco Use Types Packs/Day Years Used Date Smoking Tobacco: Never Assessed Sex and Gender Information Value Date Recorded Sex Assigned at Not on file Gender Identity Not on file Sexual Orientation Not on file documented as of this encounter Plan of Treatment Not on file documented as of this encounter Visit Diagnoses Diagnosis Benign hypertensive heart disease without congestive heart failure Benign hypertensive heart disease without heart failure documented in this encounter Care Teams Stone Unloader Relationship Specialty Start Date End Date Tonya Quiñones MD [address] PCP - General 08/28/22 documented as of this encounter
--- OUTSIDE RECORDS SUMMARY | 2025-02-04 09:55 | XMS_ITS | Clinical Summary ---
Author Organization [facility] Address [address] [place] [address] Care Team Providers Care Jewelry Racker Name Role Phone Tonya Quiñones MD Primary Care Provider [phone] Allergies No known active allergies Medications amLODIPine (Norvasc) 5 MG tablet amlodipine 5 mg tablet TAKE 1 TABLET BY MOUTH EVERY DAY 3 Active aspirin 81 MG chewable tablet Daily. Acti ve furosemide (Lasix) 40 MG tablet furosemide 40 mg tablet TAKE 1 TABLET BY MOUTH EVERY DAY 3 Active levothyroxine (Synthroid, Levoxyl) 50 MCG tablet levothyroxine 50 mcg tablet TAKE 1 TABLET BY MOUTH EVERY DAY Active metoprolol succinate XL (Toprol-XL) 25 MG 24 hr tablet Daily. 3 Active KLOR-CON 20 MEQ ER tablet Klor-Con M20 mEq tablet,extended release TAKE 1 TABLET BY MOUTH EVERY DAY 3 Active rosuvastatin (Crestor) 10 MG tablet rosuvastatin 10 mg tablet TAKE 1 TABLET BY MOUTH EVERY DAY 3 Active saccharomyces boulardii (Florastor) 250 MG capsule Take 250 mg by mouth in the morning and 250 mg before bedtime. Active Collagen Hydrolysate powder Active ofloxacin (Ocuflox) 0.3 % ophthalmic solution INSTILL 1 DROP INTO AFFECTED EYE THREE TIMES A DAY DIRECTED 3 Active prednisoLONE acetate (Pred-Forte) 1 % ophthalmic suspension PLACE 1 DROP INTO AFFECTED EYE 4 TIMES A DAY DIRECTED 3 Active ketorolac (Acular) 0.5 % ophthalmic solutionIndicat ions:Glaucoma suspect of both eyes PLACE 1 DROP INTO AFFECTED EYE(S) TWICE A DAY 5 mL 1 3 Active Active Problems Problem Noted Date Diagnosed Date Bilateral posterior capsular opacification 12/29 Pseudophakia 03/05/2023 Age-related nuclear cataract of both eyes 2022 Glaucoma suspect of both eyes 02/12/2023 Encounters Date Type Department Care Team Description 12/29/2024 11:00 AM EDT Consult [facility] [address] [place] [phone] Jaime De Oliveira DO Bilateral posterior capsular opacification (Primary Dx) 12/29/2024 Bamboo flowsheet [facility] [address] [place] [phone] Jaime De Oliveira DO 12/29/2024 Travel from Last 3 Months Family History Medical History Relation Name Comments Hypertension Father Nahun Robert Cancer Mother Dominique Robert Glaucoma Mother Dominique Robert Thyroid disease Mother Dominique Robert Cancer Paternal Grandfather Walker Narayanan Cancer Sister Halle randhawa Thyroid disease Sister Halle randhawa Relation Name Status Comments Father Nahun Robert Alive Mother Dominique Robert Alive Paternal Grandfather Walker Narayanan Alive Sister Halle randhawa Alive Social History Tobacco Use Types Packs/Day Years Used Date Smoking Tobacco: Never Tobacco Cessation:Counseling Given: Not Answered Comments Unknown Sex and Gender Information Value Date Recorded Sex Assigned at Female 02/11/2023 9:56 AM EDT Legal Sex Female 7:10 PM EDT Gender Identity Female 02/11/2023 9:56 AM EDT Sexual Orientation Straight 02/11/2023 9: 56 AM EDT Last Filed Vital Signs Vital Sign Reading Time Taken Comments Blood Pressure 124/73 02/12/2023 10:05 AM EDT Pulse 76 02/12/2023 10:05 AM EDT Temperature - - Respiratory Rate - - Oxygen Saturation - - Inhaled Oxygen Concentration - - Weight - - Height - - Body Mass Index - - Plan of Treatment Health Maintenance Due Date Last Done Comments CT Colonography 1950 Colonoscopy 1950 Colorectal Cancer Screening 1950 FIT-DNA 1950 FIT 1950 FOBT 1950 Sigmoidoscopy 1950 Mammogram 1991 Pneumococcal Vaccine: 65+ Ye ars (2 of 2 - PPSV23) 07/09/2019 07/09/2018 Influenza Vaccine (Season Ended) 2025 06/10/2022, 07/02/2021, 06/18/2018, Additional history exists Insurance MEDICARE [facility] Care Teams Jewelry Racker Relationship Specialty Start Date End Date Tonya Quiñones MD PCP - General Family Medicine 02/12/23
--- OUTSIDE RECORDS SUMMARY | 2025-02-04 09:55 | XMS_ITS | Encounter Summary ---
Author Organization [facility] Address [address] [place] [address] Care Team Providers Care Composition Mixer Name Role Phone Tonya Quiñones MD Primary Care Provider [phone] Reason for Visit * Reason Comments Med Refill Encounter Details Date Type Department Care Team (Late st Contact Info) Description 10/16/[address] [facility] [address] [place] [phone] Tito Garcia MD [address] [facility] [address] [place] [address] Essential (primary) hypertension Social History Tobacco Use Types Packs/Day Years Used Date Smoking Tobacco: Never Assessed Sex and Gender Information Value Date Recorded Sex Assigned at Not on file Gender Identity Not on file Sexual Orientation Not on file documented as of this encounter Plan of Treatment Not on file documented as of this encounter Visit Diagnoses Diagnosis Essential (primary) hypertension Unspecified essential hypertension documented in this encounter Care Teams Composition Mixer Relationship Specialty Start Date End Date Tonya Quiñones MD [address] PCP - General 08/28/22 documented as of this encounter
--- OUTSIDE RECORDS SUMMARY | 2025-02-04 09:55 | XMS_ITS | Encounter Summary ---
Author Organization [facility] Address [address] [place] [address] Care Team Providers Care Auto Washer Name Role Phone Tonya Quiñones MD Primary Care Provider [phone] Reason for Visit * Reason Comments Med Refill Encounter Details Date Type Department Care Team (Late st Contact Info) Description 06/21/2023 Refill [facility] [address] [place] [address] [phone] Tito Garcia MD [address] [facility] [address] [address] [facility] [place] [address] Essential (primary) hypertension Social History [...] hypertension documented in this encounter Care Teams Auto Washer Relationship Specialty Start Date End Date Tonya Quiñones MD [address] PCP - General 08/28/22 documented as of this encounter
--- OUTSIDE RECORDS SUMMARY | 2025-02-04 09:55 | XMS_ITS | Encounter Summary ---
Author Organization [facility] Address [address] [place] [address] Care Team Providers Care Doughnut Fryer Name Role Phone Tonya Quiñones MD Primary Care Provider [phone] Reason for Visit * Reason Comments Med Refill Encounter Details Date Type Department Care Team (Late st Contact Info) Description 12/07/2023 Refill [facility] [address] [facility] [place] [phone] Denton Chen MD [address] [place], [place] [phone] Benign hypertensive heart disease without congestive heart failure Social History Tobacco Use Types Packs/Day Years Used Date Smoking Tobacco: Never Assessed [place] Safety [employer] Environment Answer Date Rec orded Fear of Current or Ex-Partner Not on file Emotionally Abused Not on file 11/06/2023 Physically Abused Not on file 11/06/2023 Sexually Abused Not on file 11/06/2023 Physically or Sexually Abused Not on file Sex and Gender Information Value Date Recorded Sex Assigned at Not on file Gender Identity Not on file Sexual Orientation Not on file documented as of this encounter Plan of Treatment Not on file documented as of this encounter Visit Diagnoses Diagnosis Benign hypertensive heart disease without congestive heart failure Benign hypertensive heart disease without heart failure documented in this encounter Care Teams Doughnut Fryer Relationship Specialty Start Date End Date Tonya Quiñones MD [address] PCP - General 08/28/22 documented as of this encounter
--- OUTSIDE RECORDS SUMMARY | 2025-02-04 09:55 | XMS_ITS | Referral Summary ---
Author Organization [facility] Address [address] [place] [address] Care Team Providers Care Senior Software Development Manager Name Role Phone Tonya Quiñones MD Primary Care Provider [phone] Allergies No known active allergies Medications Medication Sig Dispensed Refills Start Date End Date Status levothyroxine (Synthroid, Levoxyl) 50 mcg tablet Take 75 mcg by mouth in the morning. Active Klor-Con M20 20 mEq ER tabletIndications:Ess ential (primary) hypertension TAKE 1 TABLET (20 MEQ) BY MOUTH IN THE MORNING 90 tablet 3 05/18/2024 Active metoprolol succinate XL (Toprol-XL) 50 mg 24 hr tabletIndications:PAF (paroxysmal atrial fibrillation) (CMS/HCC) TAKE 1 TABLET (50 MG) BY MOUTH ONCE DAILY DIRECTED. DO NOT CRUSH OR CHEW. 90 tablet 3 05/18/2024 05/18/2025 Active Eliquis 5 mg tabletIndications:PAF (paroxysmal atrial fibrillation) (CMS/HCC) TAKE 1 TABLET BY MOUTH IN THE MORNING AND AT BEDTIME 60 tablet 11 08/19/2024 Active metoprolol succinate XL (Toprol-XL) 25 mg 24 hr tabletIndications:Ess ential hypertension TAKE 1 TABLET BY MOUTH ONCE A DAY DIRECTED IN ADDITION TO 50MG DAILY FOR A TOTAL OF 75MG DAILY 90 tablet 3 09/27/2024 Active rosuvastatin (Crestor) 10 mg tabletIndications:Mix ed hyperlipidemia TAKE 1 TABLET BY MOUTH EVERY DAY 90 tablet 3 10/08/2024 Active furosemide (Lasix) 40 mg tabletIndications:Ess ential (primary) hypertension TAKE 1 TABLET BY MOUTH EVERY DAY 90 tablet 3 10/08/2024 Active Active Problems Problem Noted Date Diagnosed Date Atrial arrhythmia 07/24/2023 Pseudophakia 03/05/2023 08/26/2023 Age-related nuclear cataract of both eyes 202208/26/2023 Glaucoma suspect of both eyes 02/12/2023 Hyperlipidemia 09/11/2021 Assessment & Plan (08/29/2022 3:22 PM EST): Continue crestor Mitral valve stenosis and aortic valve stenosis 02/20/2017 Assessment & Plan (08/31/2022 12:00 AM EST): Continue toprol -ef normal -unchanged moderate stenosis compared to echo 2020 Essential hypertension 02/20/2017 Assessment & Plan (08/29/2022 3:22 PM EST): Hypertension is controlled 116/72 Hypothyroidism 02/20/2017 Assessment & Plan (08/31/2022 12:01 AM EST): -will order yearly labs and will add TSH for pcp management to avoid multiple lab draws for patient, per patients request Social History Tobacco Use Types Packs/Day Years [...] on file Sexual Orientation Not on file Last Filed Vital Signs Vital Sign Reading Time Taken Comments Blood Pressure 118/63 05/07/2024 2:10 PM EDT Pulse 64 05/07/2024 2:10 PM EDT Temperature - - Respiratory Rate - - Oxygen Saturation 91% 05/07/2024 2:10 PM EDT Inhaled Oxygen Concentration - - Weight 89.8 kg (198 lb) 05/07/2024 2:10 PM EDT Height 157.5 cm (5' 2 ) 05/07/2024 2:10 PM EDT Body Mass Index 36.21 05/07/2024 2:10 PM EDT Plan of Treatment Not on file Care Teams Senior Software Development Manager Relationship Specialty Start Date End Date Tonya Quiñones MD [address] [facility] #A PCP - General 08/28/22
--- OUTSIDE RECORDS SUMMARY | 2025-02-04 09:55 | XMS_ITS | Encounter Summary ---
Author Organization [facility] Address [address] [place] [address] Care Team Providers Care Clinical Lab Specialist Name Role Phone Tonya Quiñones MD Primary Care Provider [phone] Reason for Visit * Reason Comments Med Refill Encounter Details Date Type Department Care Team (Late st Contact Info) Description 12/11/2022 Refill [facility] [address] [place] [address] [phone] Tiot Garcia MD [address] [facility] [place] [address] [facility] [place] [address] Benign hypertensive heart disease without [...] failure documented in this encounter Care Teams Clinical Lab Specialist Relationship Specialty Start Date End Date Tonya Quiñones MD [address] PCP - General 08/28/22 documented as of this encounter
--- OUTSIDE RECORDS SUMMARY | 2025-02-04 09:55 | XMS_ITS | Clinical Summary ---
Author Organization [facility] Address [address] [place] [address] Care Team Providers Care Broom Machine Operator Name Role Phone Tonya Quiñones MD Primary Care Provider [phone] Allergies No known active allergies Medications Medication [...] 05/07/2024 2:10 PM EDT Plan of Treatment Health Maintenance Due Date Last Done Comments CT Colonography 1950 Colonoscopy 1950 Colorectal Cancer Screening 1950 FIT-DNA 1950 FIT 1950 FOBT 1950 Medicare Annual Wellness (AWV) 1950 Sigmoidoscopy 1950 Depression Screening 1963 Adult Tetanus 1973 Mammogram 1991 Zoster Vaccines (1 of 2) 2001 Fall Risk Screening 02/09/2016 Pneumococcal Vaccine: 65+ Years (2 of 2 - PPSV23 or PCV20) 09/03/2018 07/09/2018 COVID-19 Vaccine ( season) 2024 06/10/2022, 07/02/2021, 12/05/2020, Additional history exists Influenza Vaccine (Season Ended) 2025 06/10/2022, 07/02/2021, 06/18/2018, Additional history exists HIB Vaccines Aged Out No longer eligi ble based on patient's age to complete this topic HPV Vaccines Aged Out No longer eligi ble based on patient's age to complete this topic IPV Vaccines Aged Out No longer eligi ble based on patient's age to complete this topic Meningococcal B Vaccine Aged Out No l onger eligible based on patient's age to complete this topic Meningococcal Vaccine Aged Out No morteza seferino eligible based on patient's age to complete this topic Rotavirus Vaccines Aged Out No longer eligible based on patient's age to complete this topic Care Teams Broom Machine Operator Relationship Specialty Start Date End Date Tonya Quiñones MD [facility] #A PCP - General 08/28/22
--- NOTE | 2025-02-04 10:00 | CA_ITS ---
Patient Name: VIRAL BIRD MR#: [id number] : 1950 Exam Date: 02/04/2025 Ordering Doctor: DR FLAVIA PENA M.D. ECHOCARDIOGRAM REPORT PROCEDURE: CA ECHO DOPPLER COMPLETE INDICATIONS: Aortic valve stenosis COMPARISON: None. DESCRIPTION: COMPLETE ECHOCARDIOGRAM Real-time transthoracic echocardiography with 2D, M-mode, spectral and color flow Doppler performed. QUALITY: Technical quality was good. LEFT VENTRICLE: Normal chamber size. Moderate concentric left ventricular hypertrophy. D-shaped septum consistent with right ventricular pressure and volume overload. LV EF: Global left ventricular systolic function is hyperdynamic; visually estimated ejection fraction is 65-70%. No significant wall motion abnormalities. DIASTOLIC: Grade II diastolic dysfunction. E/E' consistent with volume overload. ATRIAL SEPTUM: Visually appears intact. LEFT ATRIUM: Mild dilatation. RIGHT ATRIUM: Normal chamber size. RIGHT VENTRICLE: Normal chamber size. Normal systolic function. TRICUSPID VALVE: Normal mobility and thickness. No stenosis with trivial regurgitation. Unable to assess right-sided pressures due to lack of measurable tricuspid regurgitation. MITRAL VALVE: Moderately thickened. Moderate mitral annular calcification. Mild mitral regurgitation. MVA 1.7 cm2, PHT 108 ms, Mean 3.45 mmHg. Mild mitral stenosis. AORTIC VALVE: Normal trileaflet appearance. Moderately calcified aortic valve with diminished mobility. Doppler velocity suggests moderate aortic valve stenosis. DVI 0.3, BRANDON 1.4 cm2, Max 3.01 m/s, Mean 19 mmHg. Mild aortic regurgitation. AORTIC ROOT: Normal diameter and appearance. Ascending aorta and aortic arch are normal in size. PULMONIC VALVE: Normal thickness and mobility. No stenosis. Mild regurgitation. PERICARDIUM: Trivial pericardial effusion. IVC: Collapses with inspirations. IVC is dilated (2.3 cm) CONCLUSION: 1. Global left ventricular systolic function is hyperdynamic; visually estimated ejection fraction 65 to 70% 2. Normal right ventricular size and systolic function 3. Moderate left ventricular hypertrophy 4. D-shaped septum consistent with right ventricular pressure and/or volume overload 5. Grade II diastolic dysfunction 6. E/E' consistent with volume overload 7. Mild mitral stenosis; mild mitral regurgitation 8. Moderate aortic valve stenosis; mild aortic valve regurgitation 9. Mild pulmonic regurgitation 10. Trivial pericardial effusion Adult Echocardiography Procedure Report Left Ventricle LVEDD (3.7 - 5.6 cm): 2.57 cm LVESD (2.2 - 4.0 cm): 2.52 cm LVIVS thickness (0.6 - 1.2 cm): 1.18 cm LVPW thickness (0.5 - 1.0 cm): 1.37 cm e': 0.05 m/s E - e': 21.41 LVOT Max Gradient: 4.95 mm[Hg] LVOT Area (cm2): 1.11 m/s Peak Velocity (LVOT): 1.11 m/s Mean Velocity (LVOT): 0.77 m/s LVOT Diameter 2.00 cm Left Atrium LA Volume Index (2D A2C): 40.85 ml/m2 Left Atrium Systolic Dimension: 4.61 cm Mitral Valve MV E to A Ratio: 0.76 Mitral Valve A-Wave Peak Velocity: 1.29 m/s Mitral Valve E-Wave Peak Velocity: 0.99 m/s Right Ventricle Aorta AO Root Diam: 2.85 cm Ascending Ao Diam: 2.32 cm Aortic Valve AoV Area (Peak Matt): 1.17 cm2, 1.17 cm2 AoV Area (VTI): 1.43 cm2, 1.44 cm2 Deceleration Rusk: 1.53 m/s2 Pressure Half-Time: 612.92 ms Peak Velocity(Antegrade Flow): 3.01 m/s, 2.78 m/s, 2.81 m/s Peak Gradient(Antegrade Flow): 36.25 mm[Hg], 31.02 mm[Hg], 31.59 mm[Hg] Mean Velocity(Antegrade Flow): 2.03 m/s, 1.75 m/s, 1.83 m/s Mean Gradient(Antegrade Flow): 18.75 mm[Hg], 15.48 mm[Hg], 16.13 mm[Hg] Velocity Time Integral: 66.14 cm, 66.74 cm, 66.12 cm Tricuspid Valve Peak Velocity (Regurgitant Flow): 2.79 m/s Pulmonic Valve Mean Gradient: 2.82 mm[Hg] Mean Velocity: 0.78 m/s Peak Velocity: 1.17 m/s, 1.18 m/s Peak Gradient: 5.60 mm[Hg], 5.44 mm[Hg] Right Atrium Right Atrium Systolic Pressure: 27.20 ml, 27.20 ml Dictated by: Leonardo Edwards M.D. on 02/04/2025 at 15:38 Approved by: Leonardo Edwards M.D. on 02/04/2025 at 16:00
== END 2025-02-04 09:52 | disposition home or self-care (01) ==
LOC: CARD 09:53
PROVIDERS: PCP Family Medicine; Visit Provider Internal Medicine Interventional Cardiology
DX: I08.0 Rheumatic disorders of both mitral and aortic valves (principal)
CPT/HCPCS: 93306

== ENCOUNTER 2025-03-11 10:22 | Outpatient (OUT) | payer MEDICARE, OTHER, SELFPAY ==
[2025-03-11 10:41] LABS: Basophils Absolute Auto 0.1 10^3/uL (0.0-0.1); Basophils Percent Auto 0.6 % (0.2-2.0); Eosinophils Absolute Auto 0.3 10^3/uL (0.0-0.7); Eosinophils Percent Auto 3.3 % (0.9-7.0); Hematocrit 42.1 % (36.0-48.0); Hemoglobin 14.4 g/dL (12.0-16.0); Immature Granulocytes Pct Auto 0.5 % (0.0-0.5); Lymphocytes Absolute Auto 2.8 10^3/uL (1.2-3.8); Lymphocytes Percent Auto 32.4 % (20.5-60.0); Mean Corpuscular HGB Conc 34.2 g/dL (29.9-35.2); Mean Corpuscular Hemoglobin 31.5 pg (26.7-34.0); Mean Corpuscular Volume 92.1 fL (81.0-99.0); Mean Platelet Volume 8.8 fL (9.5-13.5); Monocytes Absolute Auto 0.9 10^3/uL (0.3-0.8); Monocytes Percent Auto 10.7 % (1.7-12.0); Neutrophils Absolute Auto 4.5 10^3/uL (1.4-6.5); Neutrophils Percent Auto 52.5 % (43.0-75.0); Platelet Count 373 10^3/uL (150-450); Red Blood Count 4.57 10^6/uL (4.20-5.40); Red Cell Distribution Width 12.3 % (11.0-15.0); White Blood Count 8.7 10^3/uL (4.0-11.0)
[2025-03-11 10:42] LABS: Immature Granulocytes Abs Auto 0.04 10^3/uL (0.00-0.03)
[2025-03-11 11:10] LABS: Alanine Aminotransferase 26 U/L (14-59); Albumin Globulin Ratio 0.8; Albumin Level 3.6 g/dL (3.4-5.0); Alkaline Phosphatase 100 U/L (46-116); Anion Gap 10.9; Aspartate Amino Transferase 19 U/L (15-37); BUN Creatinine Ratio 32.1; Bilirubin Total 0.6 mg/dL (0.2-1.0); Calcium 9.8 mg/dL (8.5-10.1); Carbon Dioxide 30.8 mmol/L (21.0-32.0); Chloride 104 mmol/L (98-107); Estimated GFR (African America >60 (>=60 mL/min/1.73m^2); Estimated GFR (Non-African Ame >60 (>=60 mL/min/1.73m^2); Globulin 4.5 g/dL; Glucose 105 mg/dL (74-106); Potassium 4.7 mmol/L (3.5-5.1); Sodium 141 mmol/L (136-145); Total Protein 8.1 g/dL (6.4-8.2)
== END 2025-03-11 10:23 | disposition home or self-care (01) ==
LOC: LAB 10:25
PROVIDERS: PCP Family Medicine; Visit Provider Internal Medicine Interventional Cardiology
DX: I50.32 Chronic diastolic (congestive) heart failure (principal)
CPT/HCPCS: 36415; 80053; 85025

== ENCOUNTER 2025-07-27 08:58 | Outpatient (OUT) | payer MEDICARE, OTHER, SELFPAY ==
--- NOTE | 2025-07-27 09:01 | CA_ITS ---
Patient Name: VIRAL BIRD MR#: [id number] : 1950 Exam Date: 07/27/2025 Ordering Doctor: DR FLAVIA PENA M.D. ECHOCARDIOGRAM REPORT PROCEDURE: CA ECHO DOPPLER COMPLETE INDICATIONS: Nonrheumatic aortic valve stenosis, Chronic diastolic CHF COMPARISON: None. DESCRIPTION: COMPLETE ECHOCARDIOGRAM Real-time transthoracic echocardiography with 2D, M-mode, spectral and color flow Doppler performed. QUALITY: Technical quality was good. LEFT VENTRICLE: Normal chamber size. Moderate concentric left ventricular hypertrophy. LV EF: Global left ventricular systolic function is hyperdynamic. Visual estimation of left ventricular ejection fraction is 65-70%. No wall motion abnormalities. DIASTOLIC: Grade I diastolic dysfunction. E/E' consistent with volume overload. ATRIAL SEPTUM: Inadequately seen. LEFT ATRIUM: Severe dilatation. RIGHT ATRIUM: Mild dilatation. RIGHT VENTRICLE: Normal chamber size. Normal right ventricular systolic function. TRICUSPID VALVE: Normal mobility and thickness. No stenosis with mild regurgitation. Mild pulmonary hypertension. RVSP is 43mmHg. MITRAL VALVE: Mildly thickened with normal mobility. Mild mitral valve stenosis. Moderate, nodular mitral annular calcification. Mild mitral regurgitation. MVA 1.7cm, mean gradient 4.2mmHg. AORTIC VALVE: Normal trileaflet appearance. Moderately calcified aortic valve with diminished mobility. Doppler velocity suggests moderate aortic valve stenosis. DVI 0.3, BRANDON 1.4cm2, Vmax 3.5m/s, peak/mean gradient 50/25mmHg. This is essentially unchanged from previous study with a mild increase in the Vmax and peak/mean gradients. Mild aortic regurgitation. AORTIC ROOT: Normal diameter and appearance. PULMONIC VALVE: Normal thickness and mobility. No stenosis. No regurgitation. PERICARDIUM: Anterior free space; trivial effusion versus fat pad. IVC: Collapses with inspiration. The IVC is normal in size measuring 1.8cm. CONCLUSION: 1. Global left ventricular systolic function is hyperdynamic; visually estimated ejection fraction is 65 to 70% 2. Normal right ventricular size and systolic function 3. Moderate left ventricular hypertrophy 4. Grade 1 diastolic dysfunction 5. E/E' consistent with volume overload 6. Biatrial dilatation 7. Mild tricuspid regurgitation 8. Mildly elevated right ventricular systolic pressure; RVSP 43 mmHg 9. Mild mitral stenosis; mild mitral regurgitation 10. Moderate aortic valve stenosis; mild aortic valve regurgitation 11. Anterior free space; trivial effusion versus fat pad Adult Echocardiography Procedure Report Left Ventricle LVEDD (3.7 - 5.6 cm): 3.41 cm LVESD (2.2 - 4.0 cm): 2.66 cm LVIVS thickness (0.6 - 1.2 cm): 1.35 cm LVPW thickness (0.5 - 1.0 cm): 1.42 cm e': 0.07 m/s E - e': 17.63 LVOT Max Gradient: 5.32 mm[Hg] LVOT Area (cm2): 1.15 m/s Peak Velocity (LVOT): 1.15 m/s Mean Velocity (LVOT): 0.74 m/s LVOT Diameter 2.02 cm Left Ventricular Ejection Fraction: 71.09 % Left Atrium LA Volume Index (2D A2C): 61.62 ml/m2 Left Atrium Systolic Dimension: 4.11 cm Mitral Valve MV E to A Ratio: 0.76 Mitral Valve A-Wave Peak Velocity: 1.58 m/s Mitral Valve E-Wave Peak Velocity: 1.20 m/s Right Ventricle RV Internal Diastolic Dimension: 2.91 cm Aorta AO Root Diam: 2.61 cm Aortic Valve AoV Area (Peak Matt): 1.28 cm2, 1.31 cm2 AoV Area (VTI): 1.37 cm2, 1.37 cm2 Deceleration [place]: 1.97 m/s2 Pressure Half-Time: 551.19 ms Peak Velocity(Antegrade Flow): 2.83 m/s, 2.83 m/s, 2.84 m/s, 2.76 m/s, 2.55 m/s, 2.86 m/s, 3.54 m/s Peak Gradient(Antegrade Flow): 32.07 mm[Hg], 32.07 mm[Hg], 32.20 mm[Hg], 30.52 mm[Hg], 25.96 mm[Hg], 32.79 mm[Hg], 50.04 mm[Hg] Mean Velocity(Antegrade Flow): 1.99 m/s, 2.09 m/s, 1.66 m/s, 1.68 m/s, 1.51 m/s, 1.83 m/s, 2.33 m/s Mean Gradient(Antegrade Flow): 18.33 mm[Hg], 19.59 mm[Hg], 13.74 mm[Hg], 13.79 mm[Hg], 11.31 mm[Hg], 15.52 mm[Hg], 25.12 mm[Hg] Velocity Time Integral: 62.98 cm, 68.32 cm, 55.43 cm, 59.06 cm, 53.59 cm, 60.29 cm, 81.25 cm Tricuspid Valve Peak Velocity (Regurgitant Flow): 2.40 m/s, 3.14 m/s Pulmonic Valve Mean Gradient: 2.22 mm[Hg], 1.99 mm[Hg] Mean Velocity: 0.71 m/s, 0.66 m/s Peak Velocity: 0.95 m/s Peak Gradient: 3.81 mm[Hg], 3.47 mm[Hg] Right Atrium Right Atrium Systolic Pressure: 49.34 ml, 49.34 ml Dictated by: Leonardo Edwards M.D. on 07/27/2025 at 16:16 Approved by: Leonardo Edwards M.D. on 07/27/2025 at 16:21
--- OUTSIDE RECORDS SUMMARY | 2025-07-27 09:03 | XMS_ITS | Clinical Summary ---
Author Organization [facility] Address [address] [place] [address] Care Team Providers Care Airset Molder Name Role Phone Tonya Quiñones MD Primary Care Provider [phone] Allergies No known active allergies Medications MedicationSigDispense QuantityRefillsLast FilledStart DateEnd DateStatus levothyroxine (Synthroid, Levoxyl) 50 mcg tablet Take 75 mcg by mouth in the morning.Active Eliquis 5 mg tablet Indications:PAF (paroxysmal atrial fibrillation) (CMS/HCC)TAKE 1 TABLET BY MOUTH IN THE MORNING AND AT BEDTIME 60 tablet 1114Active rosuvastatin (Crestor) 10 mg tablet Indications:Mixed hyperlipidemiaTAKE 1 TABLET BY MOUTH EVERY DAY 90 tablet 5Active furosemide (Lasix) 40 mg tablet Indications:Essential (primary) hypertensionTAKE 1 TABLET BY MOUTH EVERY DAY 90 tablet 5Active aspirin 81 mg chewable tablet Chew 81 mg 1 (one) time.Active metoprolol succinate XL (Toprol-XL) 100 mg 24 hr tablet Indications:PAF (paroxysmal atrial fibrillation) (CMS/HCC)Take 1 tablet (100 mg) by mouth in the morning. Do not crush or chew. 90 tablet ctive spironolactone (Aldactone) 25 mg tablet Indications:Chronic diastolic congestive heart failure (CMS/HCC)Take 0.5 tablets (12.5 mg) by mouth in the morning. 45 tablet ctive Active Problems ProblemNoted DateDiagnosed DateBilateral posterior capsular opacification 04/16/2025Atrial nvmwfbvyda36/09/6475Yackdzaiwqos98/21/202312/ge-related nuclear cataract of both eyes/laucoma suspect of both eyes /08/20236165Aieqgyxqnczcry74/28/2021 Assessment & Plan (08/29/2022 3:22 PM EST): Continue crestor Mitral valve stenosis and aortic valve cptilccs01/08/2017 Assessment & Plan (08/31/2022 12:00 AM EST): Continue toprol -ef normal -unchanged moderate stenosis compared to echo 2020 Essential gdazgcmuiexf06/08/2017 Assessment & Plan (08/29/2022 3:22 PM EST): Hypertension is controlled 116/72 Rwnpggfjccbeop10/08/2017 Assessment & Plan (08/31/2022 12:01 AM EST): -will order yearly labs and will add TSH for pcp management to avoid multiple lab draws for patient, per patients request Family History RelationNameStatusCommentsFatherDeceasedMotherDeceased Social History Tobacco UseTypesPacks/DayYears UsedDateSmoking Tobacco: NeverPassive Smoke Exposure: NeverSmokeless Tobacco: Never Tobacco Cessation:Counseling Given: Not Answered Alcohol UseStandard Drinks/WeekCommentsNot Currently0 (1 standard drink = 0.6 oz pure alcohol)UT Safety & EnvironmentAnswerDate RecordedFear of Current or Ex-PartnerNot on file11/06/2023Emotionally AbusedNot on file11/06/2023hysically AbusedNot on file11/06/2023Sexually AbusedNot on file11/06/2023hysically or Sexually AbusedNot on file11/06/2023CommentsNoSex and Gender Information ValueDate RecordedSex Assigned at ZiuemRyaxzf70/05/2025 9:56 AM EDTLegal Sex Uvuspc0603/13/2022 11:18 PM EDTGender HonudcpzBcjrus94/05/2025 9:56 AM EDTSexual OrientationNot on file Last Filed Vital Signs Vital SignReadingTime TakenCommentsBlood Mqpqjoae794/7806 1:56 PM EDT Kokkg0331 1:56 PM EDTTemperature--Respiratory Rate--Oxygen Otlravtdfm86% 02/23/2025 1:56 PM EDTInhaled Oxygen Concentration--Moppui36.3 kg (199 lb) 02/23/2025 1:56 PM BIJBwzvny732.5 cm (5' 2 )02/23/2025 1:56 PM EDTBody Mass Index36.406 1:56 PM EDT Plan of Treatment Health MaintenanceDue DateLast DoneCommentsCT Ytsrdyysughf1951Colonoscopy 1951olorectal Cancer Hbpuzjgua1951FIT-DNA1951FIT1950 FOBT1950Medicare Annual Wellness (AWV)1950 5911Fvtnltcdwzutq1950 Depression Jgybnfgms38/27/1963Adult Ujanpqg4902/08/19737741Oxrscrnio87/27/1991Zoster Vaccines (1 of 2)2001Fall Risk Fchxrqytz13/27/2016Pneumococcal Vaccine: 50+ Years (2 of 2 - PPSV23, PCV20, or PCV21)COVID-19 Vaccine (5 - season)5006/10/2022, 07/02/2021, 12/05/2020, Additional history existsInfluenza Vaccine (#1), 07/02/2021, 06/18/2018, Additional history existsHIB VaccinesAged OutNo longer eligible based on patient's age to complete this topicHPV VaccinesAged OutNo longer eligible based on patient's age to complete this topicIPV VaccinesAged OutNo longer eligible based on patient's age to complete this topicMeningococcal B VaccineAged OutNo longer eligible based on patient's age to complete this topic Meningococcal VaccineAged OutNo longer eligible based on patient's age to complete this topicRotavirus VaccinesAged OutNo longer eligible based on patient's age to complete this topic Insurance MemberSubscriberPlan / Payer (Effective 2018-Present)Name:Ashley Lopez Member ID:[id number] Relation to Subscriber:SelfName:Ashley Lopez Subscriber ID:[id number] Payer ID:[id number] Group ID:Not on file Type:Medicare Address: [facility] [place] [id number] Care Teams Team MemberRelationshipSpecialtyStart DateEnd Date Tonya Quiñones MD [address] [facility] #A PCP - Haelihv64/14/22
--- OUTSIDE RECORDS SUMMARY | 2025-07-27 09:03 | XMS_ITS | Clinical Summary ---
Author Organization [facility] Address [address] [place] [place] [address] Care Team Providers Care Network Security Engineer Name Role Phone Tonya Quiñones MD Primary Care Provider [phone] Allergies No known active allergies Medications MedicationSigDispense QuantityRefillsLast FilledStart DateEnd DateStatus amLODIPine (Norvasc) 5 MG tablet amlodipine 5 mg tablet TAKE 1 TABLET BY MOUTH EVERY DAY12/11/2022ctive aspirin 81 MG chewable tablet Daily.Active furosemide (Lasix) 40 MG tablet furosemide 40 mg tablet TAKE 1 TABLET BY MOUTH EVERY DAY10/17/2022ctive levothyroxine (Synthroid, Levoxyl) 50 MCG tablet levothyroxine 50 mcg tablet TAKE 1 TABLET BY MOUTH EVERY DAYActive metoprolol succinate XL (Toprol-XL) 25 MG 24 hr tablet Daily.12/17/2022ctive KLOR-CON 20 MEQ ER tablet Klor-Con M20 mEq tablet,extended release TAKE 1 TABLET BY MOUTH EVERY DAY11/21/2022ctive rosuvastatin (Crestor) 10 MG tablet rosuvastatin 10 mg tablet TAKE 1 TABLET BY MOUTH EVERY DAY11/21/2022ctive saccharomyces boulardii (Florastor) 250 MG capsule Take 250 mg by mouth in the morning and 250 mg before bedtime.Active Collagen Hydrolysate powder Active ofloxacin (Ocuflox) 0.3 % ophthalmic solution INSTILL 1 DROP INTO AFFECTED EYE THREE TIMES A DAY WYPWAUEI22/31/2023ctive prednisoLONE acetate (Pred-Forte) 1 % ophthalmic suspension PLACE 1 DROP INTO AFFECTED EYE 4 TIMES A DAY PFVHYCKH20/31/2023ctive ketorolac (Acular) 0.5 % ophthalmic solution Indications:Glaucoma suspect of both eyesPLACE 1 DROP INTO AFFECTED EYE(S) TWICE A DAY 5 mL ctive Active Problems ProblemNoted DateDiagnosed DateBilateral posterior capsular opacification 12/29/20247809Itiswilzcshm24/21/2023ge-related nuclear cataract of both eyes 02/12/2023laucoma suspect of both eyes02/12/2023 Family History Medical HistoryRelationNameCommentsHypertensionFatherClark FiscusCancerMother Dominique FiscusGlaucomaMotherFrances FiscusThyroid diseaseMotherFrances Robert CancerPaternal GrandfatherJohn WattersonCancerSisterNancy nottkeThyroid disease SisterNancy nottkeRelationNameStatusCommentsFatherClark FiscusAliveMotherFrances FiscusAlivePaternal GrandfatherJohn WattersonAliveSisterNancy nottkeAlive Social History Tobacco UseTypesPacks/DayYears UsedDateSmoking Tobacco: Never Tobacco Cessation:Counseling Given: Not Answered CommentsUnknownSex and Gender InformationValueDate RecordedSex Assigned at InxdsZxqebg64/30/2023 9:56 AM EDTLegal YndEryuif90/15/2023 7:10 PM EDTGender FiyoadljKpfedr94/30/2023 9:56 AM EDTSexual KqnpbzvehpiKycikshi41/30/2023 9:56 AM EDT Last Filed Vital Signs Vital SignReadingTime TakenCommentsBlood Mlyovcxq751/7302/12/2023 10:05 AM EDT Fcget906302/12/2023 10:05 AM EDTTemperature--Respiratory Rate--Oxygen Saturation-- Inhaled Oxygen Concentration--Weight--Height--Body Mass Index-- Plan of Treatment Health MaintenanceDue DateLast DoneCommentsCT Qbjoojkjltfc1951olonoscopy 1951olorectal Cancer Oashythqe1951FIT-DNA1951FIT1950 FOBT1951Qelqbdtkolyqc36/27/1954Zcmiirqbe13/27/1991Pneumococcal Vaccine: 65+ Years (2 of 2 - PCV20 or PCV21)COVID-19 Vaccine (4 - season), 12/05/2020, 11/13/2020Influenza Vaccine (#1)509/, 07/02/2021, 06/18/2018, Additional history exists Insurance Care Teams Team MemberRelationshipSpecialtyStart DateEnd Date Tonya Quiñones MD [address] [place] [address] PCP - GeneralFamily Medicine02/12/23
--- OUTSIDE RECORDS SUMMARY | 2025-07-27 09:45 | XMS_ITS | CCD ---
Author Organization [facility] Care Team Providers Care Telehealth Nurse Name Role Phone PHYSICIAN, DEFAULT Unavailable Unavailable PHYSICIAN, DEFAULT Unavailable Unavailable SELF, REFERRED Unavailable Unavailable PHYSICIAN, DEFAULT Unavailable Unavailable PHYSICIAN, DEFAULT Unavailable Unavailable SELF, REFERRED Unavailable Unavailable ARI SHELTON Admitting Unavailable ARI SHELTON Consulting Unavailable ARI SHELTON Attending Unavailable COOPER, DR TONYA Webb Primary Care Unavailable COOPER, DR TONYA Webb Primary Care Unavailable COOPER, DR TONYA Webb Consulting Unavailable COOPER, DR TONYA Webb Attending Unavailable COOPER, DR TONYA Webb Admitting Unavailable MOUKARBEL, DR ALEJANDRO Attending Unavailable MOUKARBLORETO, DR ALEJANDRO Admitting Unavailable MOUKARBEL, DR ALEJANDRO Consulting Unavailable COOPER, DR TONYA Webb Primary Care Unavailable Tonya Cooper Unavailable Tonya Cooper MD Primary Care Provider [phone] CHRIS DE OLIVEIRA Attending Unavailable TIMOTHY YANG Referring Unavailable MOUKARBEL, FLAVIA Attending Unavailable MOUKARBEL, FLAVIA Attending Unavailable Medications Current Medications MedicationDrug Class(es)DatesSig (Normalized)Sig (Original)amLODIPine 5 mg oral tablet (3 sources)Dihydropyridine Calcium Channel BlockerStart: 71-16-2812umnb 1 tablet by mouth once dailyamLODIPine (Norvasc) 5 MG tablet amlodipine 5 mg tablet TAKE 1 TABLET BY MOUTH EVERY DAY 12/11/2022ctiveapixaban 5 mg oral tablet (1 source)Factor Xa InhibitorStart: 18-24-2665prxb 1 tablet by mouth twice daily Apixaban (Eliquis) 5 mg tablet Active 5 MG PO Twice daily June 24, 2024 12:00amaspirin 81 mg chewable tablet (2 sources)Platelet Aggregation Inhibitor, Nonsteroidal Anti-inflammatory Drug aspirin 81 MG chewable tablet Daily. ActiveCollagen Hydrolysate powder (2 sources)Collagen Hydrolysate powder Activefurosemide 40 mg oral tablet (4 sources)Loop DiureticStart: 22-87-9872kitf 1 tablet by mouth once daily furosemide (Lasix) 40 MG tablet furosemide 40 mg tablet TAKE 1 TABLET BY MOUTH EVERY DAY 10/17/2022ctiveketorolac tromethamine 5 mg/ml ophthalmic solution (2 sources)Nonsteroidal Anti-inflammatory Drug, Cyclooxygenase InhibitorStart: 05-04-3801zauu 1 drop(s) into the eye(s) twice dailyketorolac (Acular) 0.5 % ophthalmic solution Indications: Glaucoma suspect of both eyes PLACE 1 DROP INTO AFFECTED EYE(S) TWICE A DAY 5 mL 1 07/04/2023 Activelevothyroxine sodium 0.075 mg oral tablet (5 sources)l-ThyroxineStart: 12-11-1222igqy 1 tablet by mouth once daily Levothyroxine Active 0 .ROUTE .COMPLEX March 02, 2024 2:16pm TAKE 1 TABLET BY MOUTH EVERY DAYStart: 03-02-2024 End: 97-47-8873ukvc 75 ug by mouth once dailyLevothyroxine Discontinued 75 MCG PO Daily March 02, 2024 12:00am March 02, 2024 2:16pmtake 1 tablet by mouth once dailylevothyroxine (Synthroid, Levoxyl) 50 MCG tablet levothyroxine 50 mcg tablet TAKE 1 TABLET BY MOUTHEVERY DAY Activetake 1 tablet by mouth once daily Levothyroxine Sodium 75 MCG TAKE 1 TABLET BY MOUTH EVERY DAY for 90 days Active lutein 20 mg oral capsule (1 source)Start: 70-40-5777vshq 1 capsule by mouth every twenty-four hoursLutein 20 MG 1 capsule with a meal Orally Once a day for 0 days Dec, Fxwzlp98 hr metoprolol succinate 25 mg extended release oral tablet (5 sources)beta-Adrenergic BlockerStart: 61-81-4598Wekfczafnm Succinate Active MG PO June 24, 2024 12:00amStart: 29-50-2695eyef 50 mg by mouth once daily Metoprolol Succinate Active 50 MG PO Daily June 24, 2024 12:00amStart: 47-12-5646ltbmqhzmwi succinate XL (Toprol-XL) 25 MG 24 hr tablet Daily. 12/17/2022 Activeofloxacin 3 mg/ml ophthalmic solution (2 sources)Quinolone AntimicrobialStart: 16-87-7055oobt 1 drop(s) into the eye(s) three times dailyofloxacin (Ocuflox) 0.3 % ophthalmic solution INSTILL 1 DROP INTO AFFECTED EYE THREE TIMES A DAY ASDIRECTED 02/12/2023 Active microencapsulated potassium chloride 20 meq extended release oral tablet (3 sources)Start: 24-12-2214iblw 1 tablet by mouth once dailyKLOR-CON 20 MEQ ER tablet Klor-Con M20 mEq tablet,extended release TAKE 1 TABLET BY MOUTH EVERY DAY 11/21/2022 ActivePotassium Chloride (Klor-Con M20) 20 mEq tablet,ER particles/crystals (1 source)Start: 65-44-1918Muiyqkanr Chloride (Klor-Con M20) 20 mEq tablet,ER particles/crystals Active MEQ PO June 24, 2024 12:00amprednisoLONE acetate 10 mg/ml ophthalmic suspension (2 sources)CorticosteroidStart: 99-61-4677adwc 1 drop(s) into the eye(s) four times dailyprednisoLONE acetate (Pred-Forte) 1 % ophthalmic suspension PLACE 1 DROP INTO AFFECTED EYE 4 TIMES A DAY DIRECTED 02/12/2023 Activerosuvastatin calcium 10 mg oral tablet (4 sources)HMG-CoA Reductase InhibitorStart: 81-60-2378uvtx 1 tablet by mouth once dailyrosuvastatin (Crestor) 10 MG tablet rosuvastatin 10 mg tablet TAKE 1 TABLET BY MOUTH EVERY DAY 11/21/2022 Activesaccharomyces boulardii 250 mg oral capsule (2 sources)take 1 capsule by mouth in the morningsaccharomyces boulardii (Florastor) 250 MG capsule Take 250 mg by mouth in the morning and 250 mg before bedtime. Active Problems Problem ClassificationProblemDateDocumented DateEpisodic/ChronicCardiac dysrhythmias (4 sources)Atrial fibrillation; Translations: [Unspecified atrial fibrillation] Onset: [id number] (6 sources)Bilateral age-related nuclear cataracts; Translations: [Age-related nuclear cataract, bilateral]Onset: 003938-75-4283OgxojzvNavabwvrdy heart failure; nonhypertensive (2 sources)Chronic diastolic (congestive) heart failure; Translations: [Chronic diastolic (congestive) heart failure]Onset: 61-81-8110UtflfyeIengekkoy of lipid metabolism (3 sources)Other hyperlipidemia; Translations: [Mixed hyperlipidemia]Onset: 61-28-6803TbldwnaUcljbhqty hypertension (6 sources)Essential (primary) hypertension; Translations: [ESSENTIAL PRIMARY HYPERTENSION]Onset: 41-21-8229TwebhamCzvlqnvm (2 sources)Preglaucoma, unspecified, bilateral; Translations: [Preglaucoma, unspecified]Onset: 374023-07-5781RfgkupxKpmlp valve disorders (8 sources)Nonrheumatic aortic (valve) stenosis; Translations: [Nonrheumatic mitral (valve) stenosis]Onset: 35-23-8080FdddyxoOjxrvftisdtuuk (3 sources)Osteoarthritis; Translations: [Unspecified osteoarthritis, unspecified site]77-68-2316LdlzsiuMljto screening for suspected conditions (not mental disorders or infectious disease) (4 sources)Mammography abnormal; Translations: [Other abnormal and inconclusive findings on diagnostic imagingof breast]EpisodicThyroid disorders (9 sources)Hypothyroidism, unspecified; Translations: [Acquired hypothyroidism] Onset: 32-53-5140Qaeshlo Results Test NameValueInterpretationReference LddycMxysgmht35rf 12-52-185764Jtqgfykmf lab results from 03/11/2025: MD Sherri Mccormick MA Blood testing was ok, follow up as planned. LM on VM.[facility]37on 75-85-2221237. Increase metoprolol succinate to 100 mg once daily. 2. Stopped potassium. 3. Start spironolactone 12.5 mg once daily to be taken half an hour before the furosemide tablet. 4. Obtain blood testing in 2 weeks. 5. Follow-up in 6 months with an echocardiogram.[facility] CenterOffice Visiton 29-80-3650Emzgpp-up [id number] Viral Lopez 1950 F Date Provider Department Center 02/23/2025 FLAVIA GAMBOA ARUN Kim Family History Family Status - Relation Status Age at Mother Father Level of Service:24898 NM OFFICE/OUTPATIENT ESTABLISHED MOD MDM 30 [facility]onOrders Onlyon 55-73-6976Jddscx [id number] Viral Lopez 1950 F Date Provider Department Center 02/22/2025 [id number], HISTORICAL ARUN Kobe Judy Family History Family Status - Relation Status Age at Mother Father DeceasedNormalUniversVeterans Health Administration36on 22-09-605572Ftqb ordered to be done late January 2025 prior to apt with Dr. Pena in February 2025.NormalHigh[facility]36on 42-27-371545Aldiswhph echo result from 08/05/2024: MD Sherri Mccormick MA Her blood work is ok, her echo showed worsening of the aortic valve narrowing but still not severe yet. I can see her 6 months from now. LM for patient on her VM making her aware of echo result, and that she doesn't need to come back to see Dr. Pena until February 2025. Dr. Pena, did you want her to have repeat echo in February 2025 prior to apt? [facility] CenterBasophils Auto (Bld) [#/Vol]on 09-03-0359Lyouqmkbp (Bld) [#/Vol]0.0 10 3/uL0.0-0.1FMercy Health West HospitalBasophils/100 WBC Auto (Bld)on 05-27-6195Zqnuaprkt/100 WBC (Bld)0.5 % 0.2-2.0[facility] CincinnatiCholesterol in LDL Calc [Mass/Vol]on 51-91-9083Locwcaffnon in LDL [Mass/Vol]67.0 mg/dLSelect Medical Specialty Hospital - CincinnatiComment on above:<100 mg/dl USOTSPE795-786 mg/dl NEAR OR ABOVE CPZOWEK017- 159 mg/dl BORDERLINE PJBV607-124 mg/dl HIGH>190 mg/dl VERY HIGHCholesterol in VLDL Calc [Mass/Vol]on 96-11-4655Ebbdkvudicp in VLDL [Mass/Vol]31.2 mg/dL [facility] CincinnatiEosinophils/100 WBC Auto (Bld)on 06-23-2024 Eosinophils/100 WBC (Bld)2.7 %0.9-7.0[facility] Erythrocyte distribution width Auto (RBC) [Ratio]on 10-58-7511Nrjcezkvpzc distribution width (RBC) [Ratio]12.3 %11.0-15.0[facility] Estimated glomerular filtration rate (GFR) non- Americanon 06-23-2024 GFR/1.73 sq M.predicted among non-blacks MDRD (S/P/Bld) [Vol rate/Area]56 mL/min/{1.73_m2}Low>=60 mL/min/1.73m 2FMercy Health West HospitalGlobulin Calc (S) [Mass/Vol]on 98-87-4043Wmkorwso (S) [Mass/Vol]4.2 g/dLSelect Medical Specialty Hospital - CincinnatiHematocrit Auto (Bld) [Volume fraction]on 06-23-2024 Hematocrit (Bld) [Volume fraction]41.9 %36.0-48.0[facility] CincinnatiHemoglobin [Mass/volume] in Bloodon 81-35-6369Zcbzkifsip (Bld) [Mass/Vol] 13.8 g/dL12.0-16.0[facility] CincinnatiLaboratory - Chemistry and Chemistry - challengeon 66-90-9323Xhlmvpk [Mass/Vol]3.3 g/dLLow3.4-5.0[facility] CincinnatiALP [Catalytic activity/Vol]85 U/V07-654AqqbxhlriSelect Medical Specialty Hospital - CincinnatiALT [Catalytic activity/Vol]26 U/J15-65TnqjwgpmxSelect Medical Specialty Hospital - CincinnatiAST [Catalytic activity/Vol]18 U/G62-55EgjrrtfckSelect Medical Specialty Hospital - CincinnatiBilirubin [Mass/Vol]0.5 mg/dL0.2-1.0[facility] Calcium [Mass/Vol]9.8 mg/dL8.5-10.1FMercy Health West HospitalChloride [Moles/Vol]102 mmol/Z55-731MomiypwtxSelect Medical Specialty Hospital - CincinnatiCholesterol [Mass/Vol]143 mg/dL<=200[facility] CincinnatiCholesterol in HDL [Mass/Vol]45 mg/bD68-38QfwmgjyusSelect Medical Specialty Hospital - CincinnatiComment on above:> or =60 mg/dl - LOW CARDIOVASCULAR RISK<40 mg/dl - HIGH CARDIOVASCULAR RISKCO2 [Moles/Vol]28.5 mmol/L21.0-32.0[facility] CincinnatiCreatinine [Mass/Vol]0.97 mg/dL0.55-1.02[facility] CincinnatiGFR/1.73 sq M.predicted MDRD (S/P/Bld) [Vol rate/Area]mL/min/{1.73_m2}>=60 mL/min/1.73m 2 [facility] CincinnatiGlucose [Mass/Vol]121 mg/xHNbmy73-452XtculrwmxSelect Medical Specialty Hospital - CincinnatiPotassium [Moles/Vol]4.1 mmol/L3.5-5.1FMercy Health West HospitalProtein [Mass/Vol]7.5 g/dL6.4-8.2FMercy Health West Hospital Sodium [Moles/Vol]137 mmol/P751-857TorjualhuSelect Medical Specialty Hospital - CincinnatiTriglyceride [Mass/Vol]156 mg/dLHigh<=150[facility] CincinnatiUrea nitrogen [Mass/Vol]17.0 mg/dL7.0-18.0[facility] CincinnatiUrea nitrogen/Creatinine [Mass ratio]17.5 mg/mgSelect Medical Specialty Hospital - Cincinnati Laboratory - Hematology and Cell countson 65-41-5640Pqpvwlvk granulocytes/100 WBC (Bld)0.2 %0.0-0.5FMercy Health West HospitalLeukocytes [#/volume] corrected for nucleated erythrocytes in Blood by Automated counon 85-97-5178ACV corrected for nucl RBC Auto (Bld) [#/Vol]8.5 10 3/uL4.0-11.0[facility] CincinnatiLymphocytes Auto (Bld) [#/Vol]on 10-97-8438Gnryqwwlssx (Bld) [#/Vol]2.6 10 3/uL1.2-3.8[facility] CincinnatiLymphocytes/100 WBC Auto (Bld)on 54-90-3299Wedcxtiunva/100 WBC (Bld)30.9 %20.5-60.0[facility] CincinnatiMCH Auto (RBC) [Entitic mass]on 47-72-5910WIV (RBC) [Entitic mass]31.2 pg26.7-34.0[facility] CincinnatiMCHC Auto (RBC) [Mass/Vol]on 64-33-1172DGBF (RBC) [Mass/Vol]32.9 g/dL29.9-35.2FMercy Health West HospitalMCV Auto (RBC) [Entitic vol]on 94-30-2746FDM (RBC) [Entitic vol] 94.6 fL81.0-99.0[facility] CincinnatiMonocytes Auto (Bld) [#/Vol]on 17-55-9909Pyzgdydan (Bld) [#/Vol]0.7 10 3/uL0.3-0.8[facility] CincinnatiMonocytes/100 WBC Auto (Bld)on 39-08-2319Yzxrkdtmr/100 WBC (Bld)8.2 % 1.7-12.0[facility] CincinnatiNeutrophils Auto (Bld) [#/Vol]on 78-00-4664Xmpbaikholq (Bld) [#/Vol]4.9 10 3/uL1.4-6.5FMercy Health West HospitalNeutrophils/100 WBC Auto (Bld)on 07-96-0838Ijxvmhjpceb/100 WBC (Bld)57.5 % 43.0-75.0[facility] CincinnatiNo Panel Informationon 06-23-2024 Eosinophils # (Auto)0.2 10 3/uL0.0-0.7FMercy Health West HospitalImmature Granulocyte # (Auto)0.02 10 3/uL0.00-0.03[facility] Platelet mean volume Auto (Bld) [Entitic vol]on 80-47-9576Qmmkhxrk mean volume (Bld) [Entitic vol]8.8 fLLow9.5-13.5FMercy Health West HospitalPlatelets Auto (Bld) [#/Vol]on 37-02-9379Wmroxizwl (Bld) [#/Vol]359 10 3/cO880-163 [facility] CincinnatiRBC Auto (Bld) [#/Vol]on 27-14-4677VNF (Bld) [#/Vol]4.43 10 6/uL4.20-5.40The MetroHealth Systemerum or plasma albumin/globulin mass ratioon 39-62-1791Cgsijkw/Globulin [Mass ratio]0.8 {ratio} The MetroHealth Systemerum or plasma anion gap determinationon 87-85-0964Qlifq gap [Moles/Vol]10.6 mmol/LFKettering Health Miamisburgerum or plasma total cholesterol/high density lipoprotein (HDL) cholesterol mass rat on 37-15-5412Uxbbgoeqjss.total/Cholesterol in HDL [Mass ratio]3.2 {ratio} [facility] CincinnatiComment on above:3.3 - 4.4 LOW RISK4.4 - 7.1 AVERAGE RISK7.1 - 11.0 MODERATE RISK>11.0 HIGH RISKOffice Visiton 05-07-2024 Follow-up [id number] Viral Lopez 1950 F Date Provider Department Center 05/07/2024 FLAVIA GAMBOA [facility] No family history on file Level of Service:38190 NM OFFICE/OUTPATIENT ESTABLISHED MOD MDM 30 [facility], AvonCBC AUTO DIFFon 01-33-4486FOIP #0.1 103/ul Normal0.0-0.1[facility]rium Medical CenterComment on above:Performed By: #### CBC #### [facility] [address] [address] [address] Alexa BurgosBasophils/100 WBC (Bld)0.6 %Normal0.2-2.0The [facility] Comment on above:Performed By: #### CBC #### [facility] [address] [address] [address] Alexa Casey #0.2 103/ulNormal0.0-0.7The [facility] HospitalComment on above: Performed By: #### CBC #### [facility] [address] [address] [address] Alexa Reyesosinophils/100 WBC (Bld)2.1 %Normal0.9-7.0The [facility] Comment on above:Performed By: #### CBC #### [facility] [address] [place] [address] Dr. Alexa Reyesrythrocyte distribution width (RBC) [Ratio]12.5 %Zwefnb02.0-15.0 The [facility] HospitalComment on above:Performed By: #### CBC #### [facility] [address] [place] [address] Dr. Alexa BurgosHematocrit (Bld) [Volume fraction]43.6 %Ewdlzk04.0-48.0The [facility] HospitalComment on above:Performed By: #### CBC #### [facility] [address] [place] [address] Dr. Alexa BurgosHemoglobin (Bld) [Mass/Vol]14.9 g/bTVrjjxu95.0-16.0The [facility] HospitalComment on above:Performed By: #### CBC #### [facility] [address] [place] [address] Dr. Alexa Maldonado #0.02 10e3/ulNormal0.00-0.03The [facility] HospitalComment on above:Performed By: #### CBC #### [facility] [address] [place] [address] Dr. Alexa Maldonado %0.2 %Normal0.0-0.5The [facility] on above: Performed By: #### CBC #### [facility] [address] [place] [address] Dr. Alexa HollingsworthH #3.2 103/ulNormal1.2-3.8The [facility] HospitalComment on above:Performed By: #### CBC #### [facility] [address] [place] [address] Dr. Alexa Lopezmphocytes/100 WBC (Bld)36.3 %Phlpjk23.5-60.0The [facility] HospitalComtrinity health [facility] on above:Performed By: #### CBC #### [facility] [address] [place] [address] Dr. Alexa BurgosMANUAL DIFF REQNONormalThe [facility] HospitalComment on above: Performed By: #### CBC #### [facility] [address] [address] [address] Alexa Brandon (RBC) [Entitic mass]31.5 mfIygptx23.7-34.0The [facility] HospitalComment on above:Performed By: #### CBC #### [facility] [address] [place] [address] Dr. Alexa Brandon (RBC) [Mass/Vol]34.2 g/lIUcivfx14.9-35.2The [facility] HospitalComment on above:Performed By: #### CBC #### [facility] [address] [place] [address] Dr. Alexa Brandon (RBC) [Entitic vol]92.2 fNMxpkwa08.0-99.0The [facility] HospitalComment on above:Performed By: #### CBC #### [facility] [address] [place] [address] Dr. Alexa Lux #0.7 103/ulNormal0.3-0.8The [facility] HospitalComment on above:Performed By: #### CBC #### [facility] [address] [place] [address] Dr. Alexa Guanocytes/100 WBC (Bld)8.2 %Normal1.7-12.0The [facility] on above:Performed By: #### CBC #### [facility] [address] [place] [address] Dr. Alexa KaiserUT #4.6 103/ulNormal1.4-6.5The [facility] HospitalComment on above:Performed By: #### CBC #### [facility] [address] [place] [address] Dr. Alexa Kaiserutrophils/100 WBC (Bld)52.6 %Oswkdb87.0-75.0The [facility] HospitalComment on above:Performed By: #### CBC #### [facility] [address] [place] [address] Dr. Alexa Duranlet mean volume (Bld) [Entitic vol]8.9 fLCritically low 9.5-13.5The [facility]in [facility] Centerment on above:Performed By: #### CBC #### [facility] [address] [address] [address] Alexa BurgosPLT393 103/srHtfpzc422-031Dfd [facility] HospitalComtrinity health [facility] on above: Performed By: #### CBC #### [facility] [address] [place] [address] Dr. Alexa BurgosRBC4.73 106/ulNormal4.20-5.40The [facility] HospitalComment on above:Performed By: #### CBC #### [facility] [address] [place] [address] Dr. Alexa BurgosWBC8.8 103/ulNormal4.0-11.0The [facility] on above: Performed By: #### CBC #### [facility] [address] [place] [address] Dr. Alexa BurgosLIPID PROFILEon 52-51-5655NXFJ-HDL RATIO NORMSSamaritan HospitalComtrinity health [facility] hospital on above:Result Comment: 3.3 - 4.4 LOW RISK 4.4 - 7.1 AVERAGE RISK 7.1 - 11.0 MODERATE RISK >11.0 HIGH RISKPerformed By: #### LIPID, TSH, CMP #### [facility] [address] [place] [address] Dr. Alexa BurgosCholesterol [Mass/Vol]128 mg/dLNormal<=200The [facility] Comment on above:Performed By: #### LIPID, TSH, CMP #### [facility] [address] [place] [address] Dr. Alexa BurgosCholesterol in HDL [Mass/Vol]48 mg/wNSaphdg00-70Lht [facility] on above:Performed By: #### LIPID, TSH, CMP #### [facility] [address] [place] [address] Dr. Alexa BurgosCholesterol in LDL [Mass/Vol]60.6 mg/dLACMC Healthcare System on above:Performed By: #### LIPID, TSH, CMP #### [facility] [address] [address] [address] Alexa BurgosCholesterol.total/Cholesterol in HDL [Mass ratio]2.7 {ratio} NormalThe [facility] HospitalComment on above:Performed By: #### LIPID, TSH, CMP #### [facility] [address] [address] [address] Alexa Oscar NORMAL> or = 60 mg/dl - LOW CARDIOVASCULAR RISK <40 mg/dl - HIGH CARDIOVASCULAR RISKAdena Fayette Medical CenterComment on above:Performed By: #### LIPID, TSH, CMP #### [facility] [address] [place] [address] Dr. Alexa BurgosLDL CALC NORMALSEE BELOWAdena Fayette Medical CenterComment on above:Result Comment: <100 mg/dl OPTIMAL 100 - 129 mg/dl NEAR OR ABOVE OPTIMAL 130 - 159 mg/dl BORDERLINE HIGH 160 - 189 mg/dl HIGH >190 mg/dl VERY HIGH Performed By: #### LIPID, TSH, CMP #### [facility] [address] [place] [address] Dr. Alexa BurgosTriglyceride [Mass/Vol]97 mg/dLNormal<=150The [facility] Comment on above:Performed By: #### LIPID, TSH, CMP #### [facility] [address] [place] [address] Dr. Alexa BurgosVLDL CALC19.4 mg/dLNoOhioHealth Van Wert HospitalComment on above: Performed By: #### LIPID, TSH, CMP #### [facility] [address] [place] [address] Dr. Alexa BurgosPROF 14(COMP METB)on 80-21-4918Krgyswc [Mass/Vol]3.8 g/dLNormal 3.4-5.0The [facility] HospitalComment on above:Performed By: #### LIPID, TSH, CMP #### [facility] [address] [place] [address] Dr. Alexa BurgosAlbumin/Globulin [Mass ratio]0.9 {ratio}NormalThe [facility] HospitalComment on above:Performed By: #### LIPID, TSH, CMP #### [facility] [address] [address] [address] Alexa HansenP [Catalytic activity/Vol]90 U/TOzedwy63-402Keq [facility]in Medical Centerment on above:Performed By: #### LIPID, TSH, CMP #### [facility] [address] [address] [address] Alexa López [Catalytic activity/Vol]31 U/VNkvsfm00-45Vlw [facility] HospitalComment on above:Performed By: #### LIPID, TSH, CMP #### [facility] [address] [address] [address] Alexa Vasquez gap [Moles/Vol]11.3 mmol/LNormalThe [facility] Comment on above:Performed By: #### LIPID, TSH, CMP #### [facility] [address] [address] [address] Alexa BurgosAST [Catalytic activity/Vol]21 U/ATtmfbn74-37Fwc [facility] HospitalComment on above:Performed By: #### LIPID, TSH, CMP #### [facility] [address] [address] [address] Alexa BurgosBilirubin [Mass/Vol]0.5 mg/dLNormal0.2-1.0The [facility] Comment on above:Performed By: #### LIPID, TSH, CMP #### [facility] [address] [address] [address] Alexa BurgosCalcium [Mass/Vol]10.3 mg/dLCritically high8.5-10.1The [facility] HospitalComment on above:Performed By: #### LIPID, TSH, CMP #### [facility] [address] [address] [address] Alexa BurgosChloride [Moles/Vol]102 mmol/WAqktvb11-944Prg [facility] Comment on above:Performed By: #### LIPID, TSH, CMP #### [facility] [address] [address] [address] Alexa BurgosCO2 [Moles/Vol]32.6 mmol/LCritically high21.0-32.0The [facility] HospitalComment on above:Performed By: #### LIPID, TSH, CMP #### [facility] [address] [address] [address] Alexa BurgosCreatinine [Mass/Vol]0.69 mg/dLNormal0.55-1.02The [facility] HospitalComment on above:Performed By: #### LIPID, TSH, CMP #### [facility] [address] [place] [address] Dr. Alexa Barth-AF IRISH>60Normal>=60The [facility] HospitalComment on above:Performed By: #### LIPID, TSH, CMP #### [facility] [address] [place] [address] Dr. Alexa Barth-NON AF IRISH>60Normal>=60The [facility] HospitalComment on above:Performed By: #### LIPID, TSH, CMP #### [facility] [address] [place] [address] Dr. Alexa BurgosGlobulin (S) [Mass/Vol]4.3 g/dLNormalThe [facility] HospitalComment on above:Performed By: #### LIPID, TSH, CMP #### [facility] [address] [place] [address] Dr. Alexa BurgosGlucose [Mass/Vol]119 mg/dLCritically dllm92-295WtdLakeHealth [facility] on above:Performed By: #### LIPID, TSH, CMP #### [facility] [address] [place] [address] Dr. Alexa BurgosPotassium [Moles/Vol]3.9 mmol/LNormal3.5-5.1[facility] Comment on above:Performed By: #### LIPID, TSH, CMP #### [facility] [address] [place] [address] Dr. Alexa BurgosProtein [Mass/Vol]8.1 g/dLNormal6.4-8.2[facility] Comment on above:Performed By: #### LIPID, TSH, CMP #### [facility] [address] [place] [address] Dr. Alexa Covarrubiasum [Moles/Vol]142 mmol/ZCwbxlt850-367Fpq [facility] Comment on above:Performed By: #### LIPID, TSH, CMP #### [facility] [address] [address] [address] Alexa Garces nitrogen [Mass/Vol]15.0 mg/dLNormal7.0-18.0The [facility] HospitalComment on above:Performed By: #### LIPID, TSH, CMP #### [facility] [address] [place], [place] [address] Dr. Alexa Garces nitrogen/Creatinine [Mass ratio]21.7 mg/mgNormalThe [facility] HospitalComment on above:Performed By: #### LIPID, TSH, CMP #### [facility] [address] [address] [address] Alexa Arreaga 17-95-7829WBI0.855 uIU/mLCritically high0.358-3.740The [facility] HospitalComment on above:Performed By: #### LIPID, TSH, CMP #### [facility] [address] [address] [address] Liu ChangECHOCARDIBharat M/2D COMPLETEon 41-88-4936NZWRWAHVAX M/2D COMPLETE Patient: VIRAL LOPEZ Exam Date: 08/28/2022 : 1950 Gender:F Ordering : DR FLAVIA PENA M.D. Admission #: [id number] Family : DR TONYA COOPER M.D. Order #: [id number] CLICK HERE TO VIEW EXAM ECHOCARDIOGRAM REPORT [...] by: Leonardo Edwards M.D. on 08/29/2022 at 11:17[facility] CenterFREE T4on 36-45-0214Pvpd T4 [Mass/Vol]1.00 ng/dLNormal0.76-1.46The [facility] HospitalComment on above:Performed By: #### FT4 #### [facility] [address] [address] [address] Alexa Arreaga 23-57-5552ZZW4.470 uIU/mLNormal0.358-3.740The [facility] HospitalComtrinity health grand [facility] hospital on above:Performed By: #### TSH #### [facility] [address] [address] [address] Alexa Rivera [facility] BELOWAdena Fayette Medical CenterComment on above: Result Comment: <0.34 UIU/ml HYPERTHYROID 0.34-5.60 UIU/ml EUTHYROID >5.60 UIU/ml HYPOTHYROIDPerformed By: #### TSH #### [facility] [address] [address] [address] Alexa Burgos Vital Signs Date TimeVital SignValuePerforming YsiacriyaMpxtqkqz00-11-0665 08:05-0400Body .48 cm[facility]10[facility]10-2024 08:05-0400Body mass index (BMI) [Ratio]36.1 kg/s8NqzohbhagSelect [facility]ty [facility]10-10-2024 08:05-0400Body eqifta74.58 kgSelect [facility]10-10-2024 08:05-0400Diastolic blood abxfqlyz82 mm[Hg][facility] 06-24-2024 08:05-0400Heart rate72 /[facility] 06-24-2024 08:05-0400Respiratory rate16 /[facility] 06-24-2024 08:05-2525KjI5% (BldA) [Mass fraction]96 %[facility]10-10-2024 08:05-0400Systolic blood kdwoplul512 mm[Hg][facility]09-12-2023 11:30-0400Body hzipph040.48 cmTonya Ishmael Other [employer] Other 09-12-2023 11:30-0400Body mass index (BMI) [Ratio] 38.48 kg/m0Jxpcja Ishmael Other [employer] Other 09-12-2023 11:30-0400Body rrwtej96.44 kgTonya Ishmael Other [employer] Other 09-12-2023 11:30-0400Diastolic blood cfzfbovz68 mm[Hg] Tonya Cooper Other [employer] Other 09-12-2023 11:30-0400Respiratory rate12 /minZainabchica Ishmael Other [facility] [employer] Other 09-12-2023 11:30-0400Systolic blood totfgtsf283 mm[Hg] Tonya Cooper Other [facility] [employer] Other Encounters Encounter DateEncounter TypeCare ProviderFacilityStart: 02-23-2025 End: 21-69-7183zndchneelkWJQXRTSum[facility] Start: 12-29-2024 End: 82-81-5614Bhochj Ladan De Oliveira DO Work Phone: noms OPHTStart: 12-29-2024 End: 39-38-5947Fyhaui Ladan De Oliveira DO Work Phone: noms OPHTStart: 12-29-2024 End: 46-18-6188aadhdprppxHVWDSSNK D ZAHLERNot AvailableStart: 06-24-2024 End: 25-02-2920jqnmxtsyozNlvjrsjgpCincinnati [facility] Work Phone: Start: 06-24-2024 End: 68-36-7138Bgrtrfx encounter procedureDavis [facility] Work Phone: Start: 93-15-3576Xbs-patient / Non-visitDavis Regional Medical Center [facility] [employer] Work Phone: Start: 05-07-2024 End: 75-94-0744ycffmvbwtkCWCKOESumma Health [facility] Campus Start: 05-27-2023 End: 12-67-5470giydjtdjyoQmvzjn Braun Other [facility] [employer] Other Start: 95-89-0083Crbcpln encounter procedureTonya CooperEast [facility] Regional Hospitaltart: 10-29-2022 End: 29-24-6789kvqlhswqiqOGRCE BARAZIFacility:S0Hcgcg: 08-28-2022 End: 18-17-5797tslrvktlhaDE FLAVIA LEVYLOLYELFacility:I8Yidff: 02-01-2022 End: 46-92-4203cmsjcavgeqHD MARCIA E BRAUNFacility:Q4Rnzwf: 08-13-2018 End: 02-29-4760Najvvkv encounter procedureDEFAULT PHYSICIANFacility:[facility]ENTERtart: 02-17-2018 End: 40-06-3501Ialuiqp encounter procedureDEFAULT PHYSICIANFacility:[facility] Procedures DateProcedureProcedure DetailPerforming ClinicianStart: 12-29-2024 End: 79-03-8696Lqdyy medical xm&eval comprhnsv estab pt 1/>Bilateral posterior capsular opacificationChris De Oliveira DO Work Phone: comment on above:Bilateral posterior capsular opacification (Primary Dx) Plan of Treatment DateCare ActivityDetailAuthorStart: 70-59-8076Rxbqlzjwn vaccinationInfluenza Vaccine (Season Ended)[facility] HealthcareStart: 12-29-2024 End: 74-28-7729Xcsjetm encounter kdlimwjwt94/16/2025 11:00 AM EDT Consult [facility] [address] [place] [address] Chris De Oliveira, [address] [place], [place] [id number] ArrivedMCKAY-DEE HOSPITAL CENTER OPHTComment on above:ArrivedStart: 07-09-2019 Pneumococcal Vaccine: 65+ Years (2 of 2 - PPSV23)Pneumococcal Vaccine: 65+ Years (2 of 2 - PPSV23)[facility] HealthcareStart: 69-13-8456Fkeyjiblu for malignant neoplasm of breastMammogramNOMS HealthcareStart: 15-23-0140Nbtslettb for malignant neoplasm of colonNOMS HealthcareMG Breast - bilateral Screening [facility] Immunizations Immunization DateImmunizationNotesCare SnbbayntFhevxzho44-79-0945WEFIL-88 Pfizer (bivalent)Tonya Cooper Other [address] [place], [place] [address]346609-26-2022influenza virus vaccine, unspecified formulationSelect [facility]ty [facility] 95-91-2239xulcnnrrf, high dose seasonal, preservative-freeTonya Ishmael Other [employer] Other [id number]-95 Vaccine Pfizer - Documentation Purposes OnlyTonya Ishmael Other [facility]10-18-2021influenza virus vaccine, split virus (incl. purified surface antigen)Tonya Ishmael Other [employer] Other [id number] virus vaccine, unspecified formulationSelect [facility]03-23-2021COVID-19 Vaccine Pfizer - Documentation Purposes OnlyTonya Ishmael Other [facility]03-01-2021COVID-19 Vaccine Pfizer - Documentation Purposes OnlyTonya sIhmael Other [facility]10-25-2018 pneumococcal conjugate vaccine, 13 valentTonya Ishmael Other [facility]10-04-2018influenza virus vaccine, split virus (incl. purified surface antigen)Tonya Ishmael Other [employer] Other [id number] virus vaccine, unspecified formulationSelect [facility] Payers DatePayer CategoryPayerPolicy [id number] Health InsuranceGPM LIFE [id number] 2018MedicareMEDICARE [id number] [id number] [id number] [id number] [id number] [id number] Social History DateTypeDetailFacilityStart: 32-06-0476Scj Assigned At [facility] [employer] Other Start: 29-13-9262Aed Assigned At [facility]tart: 40-06-2382Zesqcln smoking status NHISNever smoked tobaccoLDS HOSPITAL HealthcareStart: 14-11-3635Pmaxnxs of Social functionLDS HOSPITAL Healthcare Start: 95-88-4366Xuupku identityIdentifies as female gender (finding)[facility] HealthcareStart: 66-20-8705Daaeen orientationHeterosexual (finding)[facility] Progress note 02-23-2025 Note Date & KgqpEzgxHzbzmcsg63-21-0027 NoteUT Cardiology [facility] Subjective Viral Lopez is a 75 y.o. year old female patient being seen for six month follow up with ECHO. Patient states she still has A-Fib almost daily and takes her Toprol daily and a couple extra a few times a week. Patient states she no longer walks the track due to fatigue, OBSORN. Patient state she can tell right away when she goes into A-fib due to the palpitation. Patient complains of leg swelling at night. Patient Active Problem List Diagnosis Mitral valve stenosis and aortic valve stenosis Hyperlipidemia Essential hypertension Hypothyroidism Age-related nuclear cataract of both eyes Glaucoma suspect of both eyes Pseudophakia Atrial arrhythmia Bilateral posterior capsular opacification No family history on file. Social History Tobacco Use Smoking status: Never Passive exposure: Never Smokeless tobacco: Never Substance Use Topics Alcohol use: Not Currently Drug use: Never HPI Viral is seen in follow up on aortic [...] her on Eliquis for anticoagulation given elevated IOR6UR0-JCSm score. I also increased metoprolol dosage and stopped amlodipine. I stopped and aspirin due to being on Eliquis. Today she is seen in follow-up. She recently underwent an echocardiogram that showed that the aortic valve stenosis is around the moderate range in severity. There was evidence of increased filling pressures by echocardiography. She reports that she has been getting shortness of breath with exertion NYHA class II-III symptoms. In addition she gets frequent palpitations almost on a daily basis. No chest pain. She has occasional leg swelling. She has no bleeding with Eliquis. Review of Systems Constitutional: Positive for malaise/fatigue. Cardiovascular: Positive for dyspnea on exertion, leg swelling and palpitations (less often). Musculoskeletal: Positive for arthritis and joint pain. All other systems reviewed and are negative. Objective Visit Vitals BP 136/78 (BP Location: Right arm, Patient Position: Sitting) Pulse 68 Ht 1.575 m (5' 2 ) Wt 90.3 kg (199 lb) SpO2 96% BMI 36.40 kg/m??? OB Status Hysterectomy Smoking Status Never BSA 1.99 m??? Physical Exam Constitutional: Appearance: [...] No Known Allergies Medications Current Outpatient Medications: Eliquis 5 mg tablet, TAKE 1 TABLET BY MOUTH IN THE MORNING AND AT BEDTIME, Disp: 60 tablet, Rfl: 11 furosemide (Lasix) 40 mg tablet, TAKE 1 TABLET BY MOUTH EVERY DAY, Disp: 90 tablet, Rfl: 3 levothyroxine (Synthroid, Levoxyl) 50 mcg tablet, Take 75 mcg by mouth in the morning., Disp: , Rfl: rosuvastatin (Crestor) 10 mg tablet, TAKE 1 TABLET BY MOUTH EVERY DAY, Disp: 90 tablet, Rfl: 3 aspirin 81 mg chewable tablet, Chew 81 mg 1 (one) time. (Patient not taking: Reported on 02/23/2025), Disp: , Rfl: metoprolol succinate XL (Toprol-XL) 100 mg 24 hr tablet, Take 1 tablet (100 mg) by mouth in the morning. Do not crush or chew., Disp: 90 tablet, Rfl: 3 spironolactone (Aldactone) 25 mg tablet, Take 0.5 tablets (12.5 mg) by mouth in the morning., Disp: 45 tablet, Rfl: 3 Recent Labs No visits with results within 6 Mo (more content not included)...[facility] History of Present illness Narrative 12-29-2024 Note Date & DgojXxvhKlsqzohv43-68-0998 History of Present illness Narrative* Chris De Oliveira, DO - 12/29/2024 11:00 AM EDT Images from the original note were not included. Subjective Patient ID: Shannan Lopez is a 74 y.o. female. Chief Complaint YAG; Blurred Vision HPI YAG In left eye. Blurred Vision In left eye. Onset was gradual. Vision is blurred and hazy. Severity is moderate. This started months ago. Occurring constantly. It is worse throughout the day and at random times. Context: distance vision, mid-range vision, driving, night driving and dim lighting. Since onset it is rapidly worsening. Associated symptoms include glare and dryness. Treatments tried include eye drops. Response to treatment was no improvement. Comments Pt states vision left eye (OS) is like a dirty contact lens (CL). Vision is hazy, harder to see distances. Started intermittently in July, started becoming more frequent. Now constant. Using systane PRN. Last edited by DO BARBOSA on 12/29/2024 11:06 AM. Current Outpatient Medications (Ophthalmic Agents) Medication Sig Dispense Refill ketorolac (Acular) 0.5 % ophthalmic solution PLACE 1 DROP INTO AFFECTED EYE(S) TWICE A DAY 5 mL 1 ofloxacin (Ocuflox) 0.3 % ophthalmic solution INSTILL 1 DROP INTO AFFECTED EYE THREE TIMES A DAY ASDIRECTED prednisoLONE acetate (Pred-Forte) 1 % ophthalmic suspension PLACE 1 DROP INTO AFFECTED EYE 4 TIMES A DAY DIRECTED No current facility-administered medications for this visit. (Ophthalmic Agents) Current Outpatient Medications (Other) Medication Sig Dispense Refill amLODIPine (Norvasc) 5 MG tablet amlodipine 5 mg tablet TAKE 1 TABLET BY MOUTH EVERY DAY aspirin 81 MG chewable tablet Daily. Collagen Hydrolysate powder furosemide (Lasix) 40 MG tablet furosemide 40 mg tablet TAKE 1 TABLET BY MOUTH EVERY DAY KLOR-CON 20 MEQ ER tablet Klor-Con M20 mEq tablet,extended release TAKE 1 TABLET BY MOUTH EVERY DAY levothyroxine (Synthroid, Levoxyl) 50 MCG tablet levothyroxine 50 mcg tablet TAKE 1 TABLET BY MOUTH EVERY DAY metoprolol succinate XL (Toprol-XL) 25 MG 24 hr tablet Daily. rosuvastatin (Crestor) 10 MG tablet rosuvastatin 10 mg tablet TAKE 1 TABLET BY MOUTH EVERY DAY saccharomyces boulardii (Florastor) 250 MG capsule Take 250 mg by mouth in the morning and 250 mg before bedtime. No current facility-administered medications for this visit. (Other) Past Medical History: Diagnosis Date Amblyopia of eye, left Aortic stenosis Atrial fibrillation (CMS/HCC) Cataract Disease of thyroid gland (CMS/HCC) Hypercholesteremia (CMS/HCC) Hypertension (CMS/HCC) Mitral stenosis No Known Allergies Review of Systems Constitutional: Negative. HENT: Negative. Eyes: Negative. Respiratory: Negative. Cardiovascular: Negative. Gastrointestinal: Negative. Genitourinary: Negative. Musculoskeletal: Negative. Skin: Negative. Neurological: Negative. Psychiatric/Behavioral: Negative. Hematological: Negative. Endocrine: Negative. Allergic/Immunologic: Negative. Objective Base Eye Exam Visual Acuity (Snellen - Linear) Right Left Dist sc 20/25 20/400 Tonometry (Applanation, 11:17 AM) Right Left Pressure 16 16 Pupils Pupils Right PERRL Left PERRL Visual Stanley Left Right Full Full Extraocular Movement Right Left Full Full Neuro/Psych Oriented x3: Yes Dilation Both eyes: 1.0% Mydriacyl @ 11:08 AM Slit Lamp and Fundus Exam External Exam Right Left External Rosacea Rosacea Slit Lamp Exam Right Left Lids/Lashes Blepharitis, 2+ Dermatochalasis - upper lid, 2+ Ptosis Blepharitis, 2+ Dermatochalasis - upper lid, 2+ Ptosis Conjunctiva/Sclera White and quiet White and quiet Cornea Clear Clear Anterior Chamber Deep and quiet Deep and quiet Iris Round and reactive Round and reactive Lens Posterior chamber intraocular lens, 2+ Posterior capsular opacification Posterior chamber intraocular lens, 4+ Posterior capsular opacification, Anterior lens opacities Anterior Vitreous Normal Normal Fundus Exam Right Left Disc Peripapillary atrophy Poor view, red reflex C/D Ratio 0.75 Macula Normal Vessels Normal Periphery Normal Assessment/Plan Bilateral posterior capsular opacification - PCO OU: (Posterior Capsule Opacification) Can be observed without intervention if PCO is not visually significant. Nd:YAG laser capsulotomy may be considered if impairment of vision rises to a level that dose not meet the patient's functional needs or interferes with activities of daily living. Risks, benefits and alternatives to the procedure will be reviewed. 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 documented [facility] Progress note 05-07-2024 Note Date & JnaeLnxlFvclhyoe89-29-1643 NoteUT Cardiology [facility] Yoselin Lopez is a 74 y.o. [...] her on Eliquis for anticoagulation given elevated YSL3MI3-KDOd score. I also increased metoprolol dosage and [...] Rate 02/24/2017 65 Atrial Rate 02/24/2017 65 NM Interval 02/24/2017 136 QRS DURATION 02/24/2017 84 QT Interval 02/24/2017 396 QTC CALCULATION(BEZET) 02/24/2017 411 P Spring 02/24/2017 31 R-Spring 02/24/2017 60 T Wave Spring 02/24/2017 61 Diagnosis 02/24/2017 Value:Normal sinus rhythm Normal ECG No previous ECGs available Confirmed by Apple COLLIER, L.S. (2) on 02/24/2017 5:06:47 PM (more content not included)...[facility] Evaluation note 05-27-2023 Note Date & GycaSryuSwzabbyq70-14-0947 Evaluation note* Encounter Date Diagnosis Assessment Notes Treatment Notes Treatment Clinical Notes May, Medicare annual wellness visit, subsequent [...] reviewed and amended by provider signed below. May,cquired hypothyroidism (ICD-10 - E03.9) May,Screening mammogram for breast cancer (ICD-10 - Z12.31) [employer] Other Evaluation note Note Date & TypeNoteFacilityEvaluation note* Diagnosis Onset Date Resolution Status Acquired hypothyroidism acuteAtrial fibrillationacuteOsteoarthritis, chronicacuteScreening mammogram for breast cancerTri[facility] Work Phone: Evaluation note Note Date & TypeNoteFacilityEvaluation note* Diagnosis Bilateral posterior capsular opacification- Primary Unspecified after-cataract documented in this encounter [facility] History general Narrative - Reported Note Date & TypeNoteFacilityHistory general Narrative - Reported* Type Description Date Medical History Abnormal mammogram of right nela st Medical HistoryAcquired hypothyroidismMedical HistoryOsteoarthritis, chronic Surgical HistoryT&ASurgical HistorySINUS SURGERYSurgical HistoryCYSTO WITH STENTSSurgical HistoryTAHHospitalization HistorySEE SURGICAL HX ANTs Software [facility] [employer] Other Summary Purpose Family History No Family History Records Found Relationship Condition Age at Onset Recorded Date/[place] brother Malignant neoplasm Unknown Malignant neoplasm of breastUnknownmotherMalignant neoplasmUnknown Advance Directives No Advanced Directives Records Found Advance Directive Response Recorded Date/ Time Advance Directives No June 24, 2024 10:42am Chief Complaint and Reason for Visit Chief Complaint Thyroid Check Reason for Visit Acquired hypothyroid ism Atrial fibrillation Osteoarthritis, chronic Screening mammogram for breast cancer Additional Source Comments INFORMATION SOURCE (unrecogn ized section and content) DATE CREATED AUTHOR 08/24/2018 [facility] DATE CREATED AUTHOR AUTHOR'S ORGANIZ ATION 11/02/2022 [facility] DATE CREATED AUTHOR AUTHOR'S ORGANIZ ATION 12/31/2024 [facility] EPIC DATE CREATED AUTHOR AUTHOR'S ORGANIZ ATION 03/20/2025 [facility] REASON FOR VISIT (unrecogniz ed section and content) ReasonCommentsYAGBlurred Vision Care Teams (unrecognized sec tion and content) Team Status: Active Member Role Status Dates Tonya Cooper MD Primary Care Provider Active Team Status: Active Member Role Status Dates Tonya Cooper MD Primary Care Provider Active Start: June 23, 2024 Flavia Pena MDAttending ProviderActiveStart: June 23, 2024 Team Status: Inactive Member Role Status Dates Tonya Cooper MD Primary Care Provide r, Attending Provider Active Start: June 24, 2024 End: June 24, 2024Team MemberRelationshipSpecialtyStart DateEnd Date Tonya Cooper MD [address] [place] [address] PCP - GeneralFamily Medicine02/12/23Team MemberRelationshipSpecialtyStart DateEnd Date Tonya Cooper MD [address] [place] [address] PCP - GeneralFamily Medicine02/12/23 Goals (unrecognized section and content) Goals may [...] BE BASED ON THE PRIMARY CLINICAL RECORDS. [facility] [employer] [facility]. provides no warranty or guarantee of the accuracy or completeness of information in this document.
== END 2025-07-27 08:59 | disposition home or self-care (01) ==
LOC: CARD 08:58
PROVIDERS: PCP Family Medicine; Visit Provider Internal Medicine Interventional Cardiology
DX: I35.0 Nonrheumatic aortic (valve) stenosis (principal); I50.32 Chronic diastolic (congestive) heart failure
CPT/HCPCS: 93306; 93356